=== PATIENT | male | born 1935 | race Caucasian/White ===

== ENCOUNTER 2021-12-01 10:02 | Outpatient (CLI) | payer MEDICARE, BC, SELFPAY ==
--- NOTE | 2021-12-01 10:15 | MR_ITS ---
[address] [address] Phone:?[phone] Fax:?[phone] Referring Physician Information: Jack Jeter M.D. [address] [facility] [address] Phone:?[phone] Fax:?[phone] Patient:Deniz Scales D.O.B:?1935 Sex:?Male Phone:?[phone] [facility] MRN:?[id number] Exam Date:?12/01/2021 ? EXAM: MRI EXAMINATION OF THE LEFT SHOULDER CLINICAL INFORMATION: Left shoulder pain. History of injury. History of surgery. Evaluate internal derangement. TECHNICAL INFORMATION: Coronal STIR as well as axial, sagittal and coronal PD and T2-weighted images acquired. INTERPRETATION: Bones: Status post supraspinatus tendon repair surgery. Status post AC joint resection. No evidence for an occult fracture or AVN. No other bone marrow edema pattern. Rotator Cuff: Status post repair surgery, there is complete rupture of the supraspinatus tendon insertion. Maximal tendon retraction is to the glenohumeral joint level. Moderate to marked muscle belly atrophy. Adjacent full-thickness tearing involves the anterior fibers of the infraspinatus tendon. Moderate to marked infraspinatus fatty muscle belly atrophy. The teres minor tendon is intact. There is a 1.6 cm craniocaudal segment of intrasubstance and deep surface fiber partial tearing involving the superior subscapularis tendon. Coracoacromial arch: Abnormal elevation of the humeral head in relation to the adjacent glenoid. The bony acromiohumeral interval is measuring 2 mm. There is no thickening identified of the coracoacromial ligament. Acromioclavicular joint: Status post AC joint resection. No deformity of the underlying supraspinatus tendon. Biceps tendon: Marked attenuation of the long head biceps tendon within the bicipital groove. The tendon appears disrupted intra-articular. Glenohumeral joint and labrum: There is a small glenohumeral joint effusion. Changes of synovitis identified within the joint. 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 Mild appearing chondromalacia involves the superomedial humeral head. No discrete SLAP tear. There is fraying and tearing involving the anteroinferior aspect of the labrum. No discrete paralabral cyst is identified. CONCLUSION: 1. Status post supraspinatus tendon repair surgery. There is a complete rupture of the supraspinatus tendon with full-thickness tear of the far anterior infraspinatus tendon. Maximal tendon retraction is to the glenohumeral joint level. Moderate to marked supraspinatus and infraspinatus muscle belly atrophy. 2. There is a moderate-sized segment of intrasubstance and deep surface fiber partial tearing involving the superior subscapularis tendon. 3. Elevation of the humeral head and marked narrowing of the acromiohumeral interval. Status post AC joint resection. 4. More chronic appearing disruption of the intra-articular long head biceps tendon. 5. Chondromalacia and associated full-thickness cartilage loss involves the anterosuperior periphery of the glenoid. Mild appearing chondromalacia involves the superomedial humeral head. 6. Tearing and fraying involves the anteroinferior labrum. KES Electronically signed on 12/01/2021 12:09:00 PM by Charles Johnston M.D.
== END 2021-12-01 10:03 | disposition home or self-care (01) ==
LOC: MRI 10:03
PROVIDERS: PCP Family Medicine; Visit Provider Orthopaedic Surgery
DX: M25.512 Pain in left shoulder (principal); M75.102 Unspecified rotator cuff tear or rupture of left shoulder, not specified as traumatic; M94.212 Chondromalacia, left shoulder
CPT/HCPCS: 73221

== ENCOUNTER 2021-12-31 10:00 | Outpatient (RCR) | payer MEDICARE, BC, SELFPAY ==
--- NOTE | 2021-11-11 11:56 | PT.OPE ---
[facility] PT [facility] Out[facility] Eval Start: 11/11/21 09:42 Freq: Status: Active Protocol: Document 11/11/21 09:44 KN (Rec: 11/11/21 11:50 KNJigna Desktop) E-signed By Charles Galvez, PT, ATC Physical Therapy Outpatient Evaluation Insurance Information Recert Due Date 02/11/22 Insurance Name Medicare B Insurance Information/Comments [place] [facility] M75.100 Rotator cuff tear Treating Diagnosis L shoulder pain L shoulder stiffness L shoulder immobility L shoulder weakness Referring MD Jeter Subjective Subjective Experiencing L shoulder pain when lifting away from his body to the side or to the shoulder level when going forward. Two falls reported over the past 6 weeks. Feels the L arm has lost most of its strength and requires the R arm to assist most of its actions. Dr. Jeter offered oral NSAID's, injections, ice rest and/or PT. He has chosen to try PT before either the oral or injectable considerations. He admits that his personal exercise program and total body conditioning had lessened, especially since the pandemic. He hopes to return to the local gym to begin his workout regiment again. Pain Comments Mostly with active motions, relatively little at rest. Believes he has a very high pain threshold. Date of Last Physician Visit 10/27/21 Current Work Status Retired Preferred Name Fab Precautions Therapy Limitations/Systems Review Not Limited Objective Range of Motion R/L Active Passive FLEX 165 90 SCAP 165 90 ABD 115 40 ER 90 90 IR 70 70 Strength R 5/5 L 4/5 Palpation Subacromial space tender on L shoulder. Posture Stands with mild trunk flexion , rounded shoulders and forward head. Other/Pertinent Objective L shoulder GH arthrokinematic mobility less than the R, particularly posterior and inferior. L scapulothoracic tightness Thoracic extension hypomobility Assessment Assessment/Impression Fab is well known in PT from previous PT. He had a L RCR in 2008 with excellent outcome for ROM, strength and overall mobility. Fab had previously been quite committed to a physical fitness program performed both independently and at a fitness facility. According to he and his , the pandemic changed their social patterns which seemed to coincide with his decreased exercise practice. This is likely the reason for his recent falls-decreased total body/leg conditioning and flexibility. Fab appeared today with less muscle tone and more guarding with his transfer and gait than he showed the last time I saw him . Fab's apparent RC tear(s) appear to still be creating pain with most muscle-tendon recruitment. While progressing through this acute stage I recommend skilled PT to address the L shoulder pain, GH joint hypomobility and developing primary shoulder muscle strength/recruitment. Primary Functional Limitations Dressing Reaching into cabinets Lifting items from garden- floor Aerobic stamina Plan of Care Rehabilitation Potential Fair Physical Therapy Goals 1.[place] with his home ex program for L shoulder strength and AAROM. 2.Decrease L shld pain with lifting while donning a shirt to 3/10 or less. 3.Facilitate improved GH and thoracic vertebral extension to improve scapulothoracic kinetics and lessen scapular substitution when lifting the arm to 90 degrees flexion for hair washing. 4.To walk x 30 min.s x 4 days per week on even and uneven surfaces without loss of balance. Coordination/Communication With Referral Source Treatment Plan/Direct Interventions Joint Mobilization,Manual Therapy,Self-Care/Home Management,Therapeutic Activities,Therapeutic Exercises Frequency/Duration 1-2x per week 6-12 weeks Patient Will Be Discharged From Therapy Skills Plateau,Independent w/ HEP,Independently Progressing Evaluation Billing Untimed Code Treatment Minutes 30 PT Eval No Charge No Complexity Low Certification Information Initial Certification Date 11/11/21 Ending Certification Date 02/11/22 Physician Comment/Change Comment or Changes Physician NPI Number #
== END 2022-10-08 23:59 | disposition home or self-care (01) ==
PROVIDERS: PCP Family Medicine; Visit Provider Orthopaedic Surgery
DX: M75.100 Unspecified rotator cuff tear or rupture of unspecified shoulder, not specified as traumatic (principal); M25.512 Pain in left shoulder; M25.612 Stiffness of left shoulder, not elsewhere classified; Z74.09 Other reduced mobility; Z51.89 Encounter for other specified aftercare
CPT/HCPCS: 97110; 97140; 97161; 97530

== ENCOUNTER 2022-05-12 09:00 | Outpatient (RCR) | payer MEDICARE, BC, SELFPAY | END 2022-05-12 11:09 | disposition home or self-care (01) | PROVIDERS: PCP Family Medicine; Visit Provider Family Medicine | DX: M19.031 Primary osteoarthritis, right wrist (principal); Z51.89 Encounter for other specified aftercare | CPT/HCPCS: 97035; 97110; 97140; 97165; 97535; X5282 ==

== ENCOUNTER 2022-11-27 19:46 | Emergency (ER) | payer MEDICARE, BC, SELFPAY ==
[2022-11-27 19:49] VITALS: BP 173/81; RESP 16; TEMP 36.7; O2SAT 96; BMI 30.1
--- NOTE | 2022-11-27 19:55 | CRLHL7_ITS ---
For Patients: As a result of the Century Cures Act, medical imaging exams and procedure reports are released immediately into your electronic medical record. You may view this report before your referring provider. If you have questions, please contact your health care provider. INDICATION: Leg pain and swelling. TECHNIQUE: Ultrasound venous duplex lower right extremity. Compression venous exam was performed using muhammad-scale, color Doppler, and spectral Doppler analysis. COMPARISON: None. FINDINGS: Deep veins: Sonographic imaging demonstrates the right common femoral, deep femoral, superficial femoral, popliteal, posterior tibial and the contralateral right common femoral veins to be fully compressible with normal color Doppler blood flow. Superficial veins: Greater saphenous vein is fully compressible. No popliteal cyst. IMPRESSION: Normal right lower extremity venous ultrasound, no sign of deep venous thrombosis. Dictated by Jj Baca MD @ 11/27/2022 10:05:51 PM (Electronically Signed)
--- NOTE | 2022-11-27 20:07 | ED.GENADULT ---
HPI - General Adult General Time Seen by Provider: 20:08 Date Seen: 11/27/22 Chief complaint: Extremity Pain/Injury, Lower Stated complaint: Possible blood clot R leg Time Seen by Provider: 11/27/22 19:56 Source: patient, RN notes reviewed and old records reviewed Mode of arrival: ambulatory Limitations: no limitations History of Present Illness HPI narrative: 87 y/o male who presents today with right leg swelling. Noted pain starting about a week ago, no injury. Increased swelling today. No chest pain or SOB. No foot pain. Painful with walking but improved after ibuprofen at home. Related Data Home Medications Medication Instructions Recorded Confirmed Lactobacillus acidophilus 10 10,000 mmu cells PO ONCE 10/27/21 11/27/22 billion cell capsule antiarthritic combination no.2 900 mg PO 10/27/21 11/27/22 mg tablet (glucosamine-chondroitin) calcium carbonate 600 mg calcium 600 mg PO QDAY 10/27/21 11/27/22 (1,500 mg) tablet (Calcium) cholecalciferol (vitamin D3) 25 1,000 unit PO QDAY 10/27/21 11/27/22 mcg (1,000 unit) capsule methimazole 5 mg tablet 2.5 mg PO DAILY 10/27/21 11/27/22 multivitamin (Multiple Vitamins 1 tab PO QDAY 10/27/21 11/27/22 tablet) tamsulosin 0.4 mg capsule 0.4 mg PO .Bedtime 10/27/21 11/27/22 alfalfa 250 mg tablet mg PO 12/17/21 11/27/22 vit C 250 mg-vit E 90 mg-zinc 40 1 tab PO QDAY 12/17/21 11/27/22 mg-copper 1 np-xoices-aceegq capsule (PreserVision AREDS-2) Allergies Allergy/AdvReac Type Severity Reaction Status Date / Time lisinopril Allergy Unknown Cough Verified 11/27/22 19:53 Sulfa drugs Allergy Mild cannot Uncoded 11/27/22 18:48 remember FISH Allergy Unknown Uncoded 11/27/22 18:48 Review of Systems Status of ROS: Reports: 10 or more systems reviewed and unremarkable except as noted in History and below [facility] Medical History (Updated 11/27/22 @ 21:13 by Jarred Newman MD) History of bladder stone ?Z87.448 - Personal history of other diseases of urinary system (ICD-10) Surgical History History of arthroscopy of left shoulder (12/25/08) History of arthroscopy of right shoulder History of hernia repair Family History (Updated 10/27/21 @ 08:54 by Ladan Martinez ~ [facility], [facility]) Mother Pancreatic cancer Social History (Reviewed 12/17/21 @ 09:29 by Ladan Martinez ~ [facility], [facility]) Smoking Status: Never smoker Do you use any of these nicotine containing products: None Second hand tobacco smoke exposure: No How often do you have a drink containing alcohol: 4 or more times a week AUDIT-C Alcohol total score: 4 Non-prescribed substance use: denies use Are you now , , , , never or living with a partner: Social isolation score (0-1 are the most socially isolated patients): 1 Exam Const: Vital Signs, click to edit/add: Vital Signs - 24 hr 11/27/22 19:49 11/27/22 21:35 Temperature 98.1 F Respiratory Rate 16 Blood Pressure [Ri ght Upper Arm] 173/81 H 168/86 H Pulse Oximetry 96 Oxygen Delivery Me thod Room Air Common normals: no apparent distress General appearance: cooperative, comfortable, well kempt and well developed HENMT: Common normals: normocephalic Head and scalp: normocephalic Eye: Common normals: PERRL, EOMs intact bilaterally and conjunctivae normal Conjunctiva: conjunctiva(e) normal Pupil: PERRL Neck & C-Spine: Common normals: full ROM and supple Chest: Common normals: inspection of chest normal Resp: Common normals: normal respiratory effort Back & Pelvis: Common normals: thoracic and lumbar spine normal to inspection Extremity: Other: Pitting edema right lower leg to knee. No knee or ankle effusion, no pain with passive movement of knee or ankle Psych: Appearance: well kempt Course Course ED Course: Patient seen and examined, prior records reviewed. Patient presents with swelling of the right lower leg. Pitting edema of the right leg, prior ankle ORIF on that side. Lymphedema vs DVT, no redness or warmth to suggest cellulitis. No chest pain or dyspnea to suggest PE. Labs and US ordered. Reevaluation(s) Time of Reevaluation #1: 21:09 Reevaluation #1: Labs independently interpreted by me reassuring with normal BMP, reassuring electrolytes and renal function, normal CBC. RLE US reported negative by voice and data technician, radiology interpretation pending. Anticipate discharge with PCP follow-up, elevation, compression. Time of Reevaluation #2: 22:11 Reevaluation #2: Radiology interpretation ultrasound negative, patient is stable for discharge Vital Signs Vital signs: Initial Vital Signs Temperature 98.1 F 11/27/22 19:49 Temperature Source Temporal Artery Scan 11/27/22 19:49 Respiratory Rate 16 11/27/22 19:49 Blood Pressure 173/81 H 11/27/22 19:49 Blood Pressure Mean 111 H 11/27/22 19:49 Blood Pressure Position Sitting 11/27/22 19:49 Pulse Oximetry 96 11/27/22 19:49 Oxygen Delivery Method Room Air 11/27/22 19:49 Vital Signs Temperature 98.1 F 11/27/22 19:49 Respiratory Rate 16 11/27/22 19:49 Blood Pressure 173/81 H 11/27/22 19:49 Pulse Oximetry 96 11/27/22 19:49 Oxygen Delivery Method Room Air 11/27/22 19:49 Temperature 98.1 F 11/27/22 19:49 Respiratory Rate 16 11/27/22 19:49 Blood Pressure 168/86 H 11/27/22 21:35 Pulse Oximetry 96 11/27/22 19:49 Oxygen Delivery Method Room Air 11/27/22 19:49 Medical Decision Making Medical Records Medical records reviewed: Yes I reviewed the patient's medical records Lab Data Lab results reviewed: Yes I reviewed the patient's lab results Labs: Lab Results 11/27/22 Range/Units 20:28 WBC 5.24 (4.50-11.00) K/uL RBC 4.20 L (4.30-5.90) m/uL Hgb 13.1 L (13.5-17.5) gm/dL Hct 40.9 (37.0-53.0) % MCV 97 (80-100) fL MCH 31 (26-34) pg MCHC 32 (32-36) gm/dL RDW Coeff of Heather 13.2 (11.5-15.5) % Plt Count 182 (140-440) K/uL Neut % (Auto) 52.8 (42.0-72.0) % Lymph % (Auto) 27.7 (20-44) % [place] % (Auto) 16.6 H (0.0-11.0) % Eos % (Auto) 1.9 (0.0-7.0) % Baso % (Auto) 1.0 (0.0-3.0) % Neut # (Auto) 2.77 (1.7-7.0) K/uL Lymph # (Auto) 1.45 (0.90-2.90) K/uL [place] # (Auto) 0.90 (0.00-0.90) K/UL Eos # (Auto) 0.10 (0.00-0.50) K/uL Baso # (Auto) 0.05 (0.00-0.30) K/uL Abs Immat Gran (auto) 0.00 (0.00-0.30) K/uL Imm/Tot Granulo (auto) 0.0 % INR 1.01 (0.91-1.10) Sodium 141 (135-149) mmol/L Potassium 4.0 (3.6-5.1) mmol/L Chloride 107 (96-114) mmol/L Carbon Dioxide 27 (20-32) mmol/L Anion Gap 7 (7-15) mEq/L BUN 19 (7-30) mg/dL Creatinine 1.1 (0.5-1.5) mg/dL Estimated Creat Clear 49.77 Estimated GFR 65 ml/min Glucose 102 (60-115) mg/dL Calcium 9.7 (8.4-10.6) mg/dL Discharge Plan Discharge Clinical Impression: Edema of right lower leg Patient Disposition: Home, Self-Care Condition: Stable Instructions: Leg Edema (ED) Additional Instructions: Elevate the leg as able when sitting or laying down. MICHELLE wrap for comfort. Follow-up with your primary care provider next week. Activity Level: Activity as Tolerated Discharge Diet: Regular Prescriptions: No Action multivitamin [Multiple Vitamins] Tablet 1 tab PO QDAY cholecalciferol (vitamin D3) 25 mcg (1,000 unit) capsule 1,000 unit PO QDAY calcium carbonate [Calcium 600] 600 mg calcium (1,500 mg) tablet 600 mg PO QDAY Lactobacillus acidophilus 10 billion cell capsule 10,000 mmu cells PO ONCE glucosamine-chondroitin 900 mg tablet PO methimazole 5 mg tablet 2.5 mg PO DAILY tamsulosin 0.4 mg capsule 0.4 mg PO .Bedtime PreserVision AREDS-2 250-90-40-1 mg capsule 1 tab PO QDAY alfalfa 250 mg tablet PO Follow Up/Referrals: Dave Romero MD [Primary Care Provider] - Stand Alone Forms: [email or web address] Info Instructions
[2022-11-27 20:34] LABS: Basophils Absolute Auto 0.05 K/uL (0.00-0.30); Eosinophils Percent Auto 1.9 % (0.0-7.0); Hematocrit 40.9 % (37.0-53.0); Hemoglobin* 13.1 gm/dL (13.5-17.5); Lymphocytes Absolute Auto 1.45 K/uL (0.90-2.90); Lymphocytes Percent Auto 27.7 % (20-44); Mean Corpuscular HGB Conc 32 gm/dL (32-36); Mean Corpuscular Hemoglobin 31 pg (26-34); Mean Corpuscular Volume 97 fL (80-100); Monocytes Percent Auto 16.6 % (0.0-11.0); Neutrophils Absolute Auto 2.77 K/uL (1.7-7.0); Neutrophils Percent Auto 52.8 % (42.0-72.0); Platelet Count* 182 K/uL (140-440); RDW Coefficient of Variation % 13.2 % (11.5-15.5); White Blood Count* 5.24 K/uL (4.50-11.00)
[2022-11-27 20:35] LABS: Slide Review Reflex No
[2022-11-27 20:46] LABS: Chloride* 107 mmol/L (96-114); Sodium* 141 mmol/L (135-149)
[2022-11-27 20:48] LABS: INR 1.01 (0.91-1.10); Prothrombin Time 13.9 Seconds
[2022-11-27 20:49] LABS: Anion Gap 7 mEq/L (7-15); Carbon Dioxide* 27 mmol/L (20-32); Creatinine* 1.1 mg/dL (0.5-1.5); Est. Creatinine Clearance* 49.77; Estimated Glomerular Filt Rate 65 ml/min
[2022-11-27 20:50] LABS: Blood Urea Nitrogen* 19 mg/dL (7-30); Calcium* 9.7 mg/dL (8.4-10.6); Glucose* 102 mg/dL (60-115)
[2022-11-27 21:35] VITALS: BP 168/86
== END 2022-11-27 22:31 | disposition home or self-care (01) ==
PROVIDERS: Emergency Provider Family Medicine; PCP Family Medicine
DX: R60.9 Edema, unspecified (principal)
CPT/HCPCS: 36415; 80048; 85025; 85610; 93971; 99283; 99284

== ENCOUNTER 2023-03-24 13:53 | Observation (INO) | payer MEDICARE, BC, SELFPAY ==
[2023-03-24] VITALS (29 sets, daily range): BP systolic 126–192; BP diastolic 67–92; PULSE 58–72; RESP 12–20; TEMP 36.3–36.8; O2SAT 91–98; BMI 29.1; BMI 29.2
--- NOTE | 2023-03-24 14:12 | CRLHL7_ITS ---
For Patients: As a result of the Century Cures Act, medical imaging exams and procedure reports are released immediately into your electronic medical record. You may view this report before your referring provider. If you have questions, please contact your health care provider. INDICATION: Acute stroke, right arm weakness, right facial loss of sensation. TECHNIQUE: CT head without contrast. FINDINGS: There is no intracranial hemorrhage. The muhammad white matter differentiation is grossly maintained. There are nonspecific white matter hypodensities commonly seen with small vessel disease. There is evidence of a lacunar infarct in the left thalamus. The ventricles and cisterns are clear. IMPRESSION: 1. Left thalamic lacunar infarct, age-indeterminate. 2. Nonspecific white matter hypodensities commonly seen with small vessel disease. Please note that all CT scans at this facility use dose modulation, iterative reconstruction, and/or weight-based dosing when appropriate to reduce radiation dose to as low as reasonably achievable. Dictated by Marcus Onofre MD @ 03/24/2023 2:36:56 PM (Electronically Signed)
--- NOTE | 2023-03-24 14:12 | CRLHL7_ITS ---
For Patients: As a result of the Century Cures Act, medical imaging exams and procedure reports are released immediately into your electronic medical record. You may view this report before your referring provider. If you have questions, please contact your health care provider. INDICATION: Acute stroke, right arm weakness, right facial loss of sensation. TECHNIQUE: CTA head with contrast bolus tracking, 3D angiographic rendering using maximum intensity projection (MIP) and images permanently archived. FINDINGS: There is normal opacification of the intracranial vasculature. There is no large vessel occlusion. No aneurysm is identified. IMPRESSION: Unremarkable head CTA. No large vessel occlusion. Please note that all CT scans at this facility use dose modulation, iterative reconstruction, and/or weight-based dosing when appropriate to reduce radiation dose to as low as reasonably achievable. Dictated by Marcus Onofre MD @ 03/24/2023 2:39:18 PM (Electronically Signed)
--- NOTE | 2023-03-24 14:12 | CRLHL7_ITS ---
For Patients: As a result of the Century Cures Act, medical imaging exams and procedure reports are released immediately into your electronic medical record. You may view this report before your referring provider. If you have questions, please contact your health care provider. INDICATION: Acute stroke, right arm weakness, right facial loss of sensation. TECHNIQUE: CTA neck with contrast bolus tracking, 3D angiographic rendering using maximum intensity projection (MIP) and images permanently archived. FINDINGS: There is no significant carotid artery stenosis or dissection. There is no significant vertebral artery stenosis or dissection. There are multiple small thyroid nodules. A nearly 6 cm mass-like extension from the inferior aspect of the right thyroid extends into the mediastinum. The cervical spine is in normal alignment. Degenerative changes are noted in the cervical spine. IMPRESSION: 1. No significant carotid or vertebral artery stenosis or dissection. 2. 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 Discussed with Dr. Quan at 2:45 p.m. on 03/24/23. Please note that all CT scans at this facility use dose modulation, iterative reconstruction, and/or weight-based dosing when appropriate to reduce radiation dose to as low as reasonably achievable. Dictated by Marcus Onofre MD @ 03/24/2023 2:44:15 PM (Electronically Signed)
--- NOTE | 2023-03-24 14:20 | ED_ITS ---
HPI - General Adult General Chief complaint: Neuro Symptoms/Altered Deficit Stated complaint: stroke like symptoms, numb on the right side Time Seen by Provider: 03/24/23 14:04 History of Present Illness HPI narrative: stroke like symptoms, numb on the right side 87-year-old man presenting to the emergency department approximately 40 minutes after onset of episode of numbness and weakness. Was sitting eating and suddenly felt numbness over the right side of his face unusual sensation is ears well and weakness in his right hand/lower arm. Also slurring some speech. Symptoms have apparently now resolved lasting possibly 20 minutes though slurring of speech she says remains. Does not have headache. No cough or cold symptoms recently. No fever. No sense of irregular heartbeat. Talking with spouse, apparently no cardiovascular problems known no history of CVA. She does say that he had had a rather intense workout earlier in the morning. And that he has been struggling with good deal of social stressors with family lately; it has been a tough year. Has been struggling with balance and lower extremities going to pot. Was being worked out by physical therapy this morning prior to this event. Is interested in getting better to go skiing. History of being quite an avid skier. Has been struggling with arthritis particularly in his right knee. Been taking regular ibuprofen. No abdominal pain or dyspepsia or melena noted. Related Data Home Medications Medication Instructions Recorded Confirmed Lactobacillus acidophilus 10 10,000 mmu cells PO ONCE 10/27/21 11/27/22 billion cell capsule antiarthritic combination no.2 900 mg PO 10/27/21 11/27/22 mg tablet (glucosamine-chondroitin) calcium carbonate 600 mg calcium 600 mg PO QDAY 10/27/21 11/27/22 (1,500 mg) tablet (Calcium) cholecalciferol (vitamin D3) 25 1,000 unit PO QDAY 10/27/21 11/27/22 mcg (1,000 unit) capsule methimazole 5 mg tablet 2.5 mg PO DAILY 10/27/21 11/27/22 multivitamin (Multiple Vitamins 1 tab PO QDAY 10/27/21 11/27/22 tablet) tamsulosin 0.4 mg capsule 0.4 mg PO .Bedtime 10/27/21 11/27/22 alfalfa 250 mg tablet mg PO 12/17/21 11/27/22 vit C 250 mg-vit E 90 mg-zinc 40 1 tab PO QDAY 12/17/21 11/27/22 mg-copper 1 [id number] capsule (PreserVision AREDS-2) chlorthalidone 25 mg tablet mg PO 03/24/23 sertraline 50 mg tablet mg PO 03/24/23 sildenafil 100 mg tablet mg 03/24/23 simvastatin 20 mg tablet 20 mg PO QPM 03/24/23 03/24/23 Allergies Allergy/AdvReac Type Severity Reaction Status Date / Time lisinopril Allergy Unknown Cough Verified 03/24/23 14:02 Sulfa drugs Allergy Mild cannot Uncoded 11/27/22 18:48 remember FISH Allergy Unknown Uncoded 11/27/22 18:48 Review of Systems Status of ROS: Reports: 6 or more systems reviewed and unremarkable except as noted in History and below [facility] Medical History (Updated 03/24/23 @ 19:29 by Jose Powell MD) Hyperthyroidism ?E05.90 - Thyrotoxicosis, unspecified without thyrotoxic crisis or storm (ICD-10) Rupture of left biceps tendon ?S46.212A - Strain of muscle, fascia and tendon of other parts of biceps, left arm, initial encounter (ICD-10) Osteoarthritis of left shoulder ?M19.012 - Primary osteoarthritis, left shoulder (ICD-10) Rotator cuff tear, left ?M75.102 - Unspecified rotator cuff tear or rupture of left shoulder, not specified as traumatic (ICD-10) Urinary retention due to benign prostatic hyperplasia ?N40.1 - Benign prostatic hyperplasia with lower urinary tract symptoms (ICD- 10) ?R33.8 - Other retention of urine (ICD-10) Sepsis ?A41.9 - Sepsis, unspecified organism (ICD-10) Escherichia coli urinary tract infection ?N39.0 - Urinary tract infection, site not specified (ICD-10) ?B96.20 - Unspecified Escherichia coli [E. coli] as the cause of diseases classified elsewhere (ICD-10) Encounter for counseling regarding advance directives (10/19/16) ?Z71.89 - Other specified counseling (ICD-10) Calculus of urinary bladder ?N21.0 - Calculus in bladder (ICD-10) History of bladder stone ?Z87.448 - Personal history of other diseases of urinary system (ICD-10) Surgical History History of arthroscopy of right shoulder ?Z98.890 - Other specified postprocedural states (ICD-10) History of hernia repair ?Z98.890 - Other specified postprocedural states (ICD-10) ?Z87.19 - Personal history of other diseases of the digestive system (ICD-10) History of arthroscopy of left shoulder (12/25/08) ?Z98.890 - Other specified postprocedural states (ICD-10) Family History Mother Pancreatic cancer Social History What is your current living situation?: I presently have a place to live Problems where you live: no known problems Problems where you live details: None In the past 12 months, utilities in danger of being shut off: no In past 12 months, lack of transportation kept you from medical appts, meetings, work, or getting things needed for daily living: no In the past 12 mos, have been you worried that your food would run out before you had money to buy more?: never true In the past 12 mos, the food you bought just didn't last and you didn't have money to buy more?: never true Highest level of school completed/degree received: Master's degree Smoking Status: Never smoker Do you use any of these nicotine containing products: None Second hand tobacco smoke exposure: No How often do you have a drink containing alcohol: 4 or more times a week Alcohol type: beer and wine How many standard drinks containing alcohol do you have on a typical day: 1 or 2 How often do you have six or more drinks on one occasion: Never AUDIT-C Alcohol total score: 4 Non-prescribed substance use: denies use Caffeine: Yes (1 cup of tea or 1 pop a day) Are you now , , , , never or living with a partner: Social isolation score (0-1 are the most socially isolated patients): 1 How often does anyone, including family, friends and others, physically hurt you : never How often does anyone, including family, friends and others, insult or talk down to you: never How often does anyone, including family, friends and others, threaten you with harm: never How often does anyone, including family, friends and others, scream or curse at you: never service: No Exam Narrative: Exam Narrative: Pleasant. Fully alert. GCS of 15. Head is atraumatic. Cranial nerves 2-12 intact. He is breathing easily. Moving all extremities without difficulty. Lower extremities are without edema. Well-perfused. Head looks to be atraumatic. Without apparent loss of sensation over the upper extremities. He has no focal weakness. He is subtly slurring his speech. Oropharynx is moist. Scores maybe a 1 on the NIH stroke scale for the subtle slurring. Heart in regular rate and rhythm with some ectopic beats. Distant. Lungs are clear. Const: Vital Signs, click to edit/add: Vital Signs - 24 hr 03/24/23 14:07 03/24/23 14:12 03/24/23 14:22 Temperature 97.3 F L Pulse Rate 72 Pulse Rate [Pulse Oximeter] 67 Respiratory Rate 16 Blood Pressure 142/69 H Blood Pressure [Ri ght Upper Arm] 127/67 Pulse Oximetry 96 94 Oxygen Delivery Me thod Room Air 03/24/23 14:26 03/24/23 14:27 03/24/23 14:31 Temperature 98.2 F Pulse Rate 66 Pulse Rate [Pulse Oximeter] 67 Respiratory Rate 16 Blood Pressure 133/69 Blood Pressure [Ri ght Upper Arm] Pulse Oximetry 96 96 93 Oxygen Delivery Me thod Room Air 03/24/23 14:32 03/24/23 14:40 03/24/23 14:41 Temperature Pulse Rate 66 67 65 Pulse Rate [Pulse Oximeter] Respiratory Rate Blood Pressure 126/70 Blood Pressure [Ri ght Upper Arm] Pulse Oximetry 92 91 95 Oxygen Delivery Me thod 03/24/23 14:42 03/24/23 14:50 03/24/23 14:51 Temperature 98.3 F Pulse Rate 70 63 63 Pulse Rate [Pulse Oximeter] Respiratory Rate 12 Blood Pressure 126/70 130/72 Blood Pressure [Ri ght Upper Arm] Pulse Oximetry 97 91 91 Oxygen Delivery Me thod Room Air 03/24/23 14:52 03/24/23 14:57 03/24/23 15:21 Temperature 98.3 F Pulse Rate 64 63 61 Pulse Rate [Pulse Oximeter] Respiratory Rate 12 Blood Pressure 130/72 160/85 H Blood Pressure [Ri ght Upper Arm] Pulse Oximetry 93 94 92 Oxygen Delivery Me thod Room Air 03/24/23 15:22 03/24/23 15:30 03/24/23 15:31 Temperature Pulse Rate 61 63 60 Pulse Rate [Pulse Oximeter] Respiratory Rate Blood Pressure 152/83 H Blood Pressure [Ri ght Upper Arm] Pulse Oximetry 94 95 96 Oxygen Delivery Wi thod 03/24/23 15:47 03/24/23 15:50 03/24/23 15:54 Temperature Pulse Rate 61 63 60 Pulse Rate [Pulse Oximeter] Respiratory Rate Blood Pressure Blood Pressure [Ri ght Upper Arm] Pulse Oximetry 95 93 93 Oxygen Delivery Wi thod 03/24/23 15:57 03/24/23 16:00 03/24/23 16:10 Temperature 98.3 F Pulse Rate 61 60 59 L Pulse Rate [Pulse Oximeter] Respiratory Rate 12 Blood Pressure 152/83 H Blood Pressure [Ri ght Upper Arm] Pulse Oximetry 94 94 98 Oxygen Delivery Wi thod 03/24/23 16:50 Temperature Pulse Rate Pulse Rate [Pulse Oximeter] Respiratory Rate Blood Pressure Blood Pressure [Ri ght Upper Arm] Pulse Oximetry 95 [facility] Documenting provider has reviewed patient's vital signs: yes Course Vital Signs Vital signs: Initial Vital Signs Temperature 97.3 F L 03/24/23 14:07 Temperature Source Temporal Artery Scan 03/24/23 14:07 Pulse Rate 67 03/24/23 14:07 Pulse Rhythm Regular 03/24/23 14:07 Pulse Strength 3+ Normal 03/24/23 14:07 Respiratory Rate 16 03/24/23 14:07 Blood Pressure 127/67 03/24/23 14:07 Blood Pressure Mean 87 03/24/23 14:07 Blood Pressure Position Sitting 03/24/23 14:07 Pulse Oximetry 96 03/24/23 14:07 Oxygen Delivery Method Room Air 03/24/23 14:07 Vital Signs Temperature 97.3 F L 03/24/23 14:07 Pulse Rate 67 03/24/23 14:07 Respiratory Rate 16 03/24/23 14:07 Blood Pressure 127/67 03/24/23 14:07 Pulse Oximetry 96 03/24/23 14:07 Oxygen Delivery Method Room Air 03/24/23 14:07 Temperature 97.9 F 03/24/23 19:50 Pulse Rate 65 03/24/23 19:50 Respiratory Rate 20 03/24/23 19:50 Blood Pressure 165/80 H 03/24/23 19:50 Pulse Oximetry 95 03/24/23 19:50 Oxygen Delivery Method Room Air 03/24/23 19:50 Medications Administered Medications: Generic Name Dose Route Start Last Admin Trade Name Elissa PRN Reason Stop Dose Admin Enoxaparin Sodium 40 mg 03/24/23 21:00 03/24/23 20:36 Enoxaparin 40 Mg/0.4 Ml Inj SUBCUT 40 mg HS YANG Administration Sodium Chloride 1,000 mls @ 75 mls/hr 03/24/23 17:25 03/24/23 18:43 0.9 % Sodium Chloride 1000 Ml IV 03/25/23 06:44 75 mls/hr .[id number] YANG Administration Simvastatin 20 mg 03/24/23 21:00 03/24/23 20:36 Simvastatin 20 Mg Tablet PO 20 mg HS YANG Administration Sodium Chloride 5 ml 03/24/23 21:00 03/24/23 20:36 Sodium Chloride 0.9 % (Flush) 10 Ml Syringe IVF Not Given BID YANG Tamsulosin HCl 0.4 mg 03/24/23 21:00 03/24/23 20:36 Tamsulosin Hcl 0.4 Mg Capsule PO 0.4 mg HS YANG Administration Discontinued Medications Generic Name Dose Route Start Last Admin Trade Name Elissa PRN Reason Stop Dose Admin Aspirin 324 mg 03/24/23 15:30 03/24/23 15:19 Aspirin 81 Mg Tab.Chew PO 03/24/23 15:31 324 mg ONCE ONE Administration Clopidogrel Bisulfate 300 mg 03/24/23 17:25 03/24/23 18:43 Clopidogrel 75 Mg Tablet PO 03/24/23 17:26 300 mg ONCE ONE Administration Medical Decision Making MDM Narrative Medical decision making narrative: Will proceed in timely manner to evaluation of stroke symptoms. Will be going to imaging. Labs are pending. I would doubt intervention given scoring at this point. Will monitor for worsening. TIA? Episode of anxiety? By my read I do not see evidence of acute abnormality on noncontrast head CT. Discussed with Stroke Neurology. They review the non con head CT noting old thalamic stroke. Probably TIA as explanation for symptoms. Proceed with vascular study either MRA of the neck or with CTA as ordered. Anticipating MRI of the brain. I called to Radiology and CT a of head and neck as already been accomplished. Will try to find time for MRI of the head. Anticipating admission with aspirin plus or minus Plavix. Will clarify status. CT head radiology over-read IMPRESSION: 1. Left thalamic lacunar infarct, age-indeterminate. 2. Nonspecific white matter hypodensities commonly seen with small vessel disease. On reassessment approximately 50 minutes after arrival, is fully symptom free. Does not take daily aspirin. Will order full strength aspirin. I have discussed with hospitalist for admission. Anticipating MRI of the head yet this afternoon. 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 I discussed this with Mr. Scales; apparently this is not a new finding and has been treated for hyperthyroid 40 years. Radiology over-read of angiography of head and neck is unremarkable other than as noted above. Lab Data Lab results reviewed: Yes I reviewed the patient's lab results Labs: Lab Results 03/24/23 Range/Units 14:05 WBC 6.20 (4.50-11.00) K/uL RBC 4.24 L (4.30-5.90) m/uL Hgb 13.3 L (13.5-17.5) gm/dL Hct 41.3 (37.0-53.0) % MCV 97 (80-100) fL MCH 31 (26-34) pg MCHC 32 (32-36) gm/dL RDW Coeff of Heather 12.8 (11.5-15.5) % Plt Count 180 (140-440) K/uL Neut % (Auto) 62.4 (42.0-72.0) % Lymph % (Auto) 25.3 (20-44) % [place] % (Auto) 10.3 (0.0-11.0) % Eos % (Auto) 1.5 (0.0-7.0) % Baso % (Auto) 0.5 (0.0-3.0) % Neut # (Auto) 3.87 (1.7-7.0) K/uL Lymph # (Auto) 1.57 (0.90-2.90) K/uL [place] # (Auto) 0.60 (0.00-0.90) K/UL Eos # (Auto) 0.09 (0.00-0.50) K/uL Baso # (Auto) 0.03 (0.00-0.30) K/uL Abs Immat Gran (auto) 0.00 (0.00-0.30) K/uL Imm/Tot Granulo (auto) 0.0 % INR 1.04 (0.91-1.10) APTT 30 (23-33) Seconds Sodium 137 (135-149) mmol/L Potassium 3.6 (3.6-5.1) mmol/L Chloride 102 (96-114) mmol/L Carbon Dioxide 26 (20-32) mmol/L Anion Gap 9 (7-15) mEq/L BUN 25 (7-30) mg/dL Creatinine 1.3 (0.5-1.5) mg/dL Estimated Creat Clear 42.12 Estimated GFR 54 ml/min Glucose 121 H (60-115) mg/dL Calcium 9.6 (8.4-10.6) mg/dL ECG Data Attestation: I personally reviewed and interpreted this ECG as follows: (Sinus rhythm. Rate of 73. PACs. No acute ischemic changes) Critical Care Time Critical Care Time Critical Care Time: Yes Attestation: The patient required my highest level preparedness to intervene emergently and I personally spent this critical care time directly and personally managing the patient. This critical care time included: Obtaining a history; Examining the patient; Pulse oximetry; Ordering and reviewing of studies; Arranging urgent treatment with development of a management plan; Evaluation of patients response to treatment; Frequent reassessment discussions with other providers. This critical care time was performed to assess and manage the high probability of imminent life-threatening deterioration that could result in multiorgan failure. It was exclusive of separate billable procedures and treating other patients and teaching time. Total Critical Care Time in Minutes: 45 Discharge Plan Discharge Clinical Impression: Thalamic stroke, Brain TIA Patient Disposition: Admitted As Observation Condition: Improved
[2023-03-24 14:34] LABS: Basophils Absolute Auto 0.03 K/uL (0.00-0.30); Basophils Percent Auto 0.5 % (0.0-3.0); Eosinophils Absolute Auto 0.09 K/uL (0.00-0.50); Eosinophils Percent Auto 1.5 % (0.0-7.0); Hematocrit 41.3 % (37.0-53.0); Hemoglobin* 13.3 gm/dL (13.5-17.5); Lymphocytes Absolute Auto 1.57 K/uL (0.90-2.90); Lymphocytes Percent Auto 25.3 % (20-44); Mean Corpuscular HGB Conc 32 gm/dL (32-36); Mean Corpuscular Hemoglobin 31 pg (26-34); Mean Corpuscular Volume 97 fL (80-100); Monocytes Percent Auto 10.3 % (0.0-11.0); Neutrophils Absolute Auto 3.87 K/uL (1.7-7.0); Neutrophils Percent Auto 62.4 % (42.0-72.0); Platelet Count* 180 K/uL (140-440); RDW Coefficient of Variation % 12.8 % (11.5-15.5); Red Blood Count 4.24 m/uL (4.30-5.90)
[2023-03-24 14:37] LABS: Chloride* 102 mmol/L (96-114); Potassium* 3.6 mmol/L (3.6-5.1); Sodium* 137 mmol/L (135-149)
[2023-03-24 14:38] LABS: Slide Review Reflex No
[2023-03-24 14:40] LABS: Anion Gap 9 mEq/L (7-15); Blood Urea Nitrogen* 25 mg/dL (7-30); Carbon Dioxide* 26 mmol/L (20-32); Creatinine* 1.3 mg/dL (0.5-1.5); Est. Creatinine Clearance* 42.12; Estimated Glomerular Filt Rate 54 ml/min
[2023-03-24 14:41] LABS: Calcium* 9.6 mg/dL (8.4-10.6); Glucose* 121 mg/dL (60-115)
[2023-03-24 14:42] LABS: INR 1.04 (0.91-1.10); Prothrombin Time 14.3 Seconds
[2023-03-24 14:43] LABS: Partial Thromboplastin Time* 30 Seconds (23-33)
--- NOTE | 2023-03-24 15:06 | CRLHL7_ITS ---
For Patients: As a result of the Cures Act, medical imaging exams and procedure reports are released immediately into your electronic medical record. You may view this report before your referring provider. If you have questions, please contact your health care provider. Indication: Recent TIA, history of thalamic stroke Technique: Multiplanar, multisequence MRI of the brain obtained without contrast. Comparison: CT head 03/24/2023 Findings: Mild generalized cerebral volume loss. Mild chronic microangiopathy white-matter changes. Chronic left thalamic lacunar infarct. No acute/subacute ischemic, intracranial hemorrhage, or abnormal extra-axial fluid collection. No midline shift, hydrocephalus, or herniation. Midline structures are unremarkable. Major expected intracranial flow voids are visualized. Mild scattered paranasal sinus mucosal thickening. No significant mastoid effusion. Unremarkable orbits. Impression: 1. No evidence of acute intracranial abnormality 2. Mild generalized cerebral volume loss, mild chronic microangiopathy changes, and chronic left thalamic lacunar infarct. Dictated by Adali Ybarra MD @ 03/24/2023 5:40:48 PM (Electronically Signed)
[2023-03-24] MEDS: ASPIRIN 81 MG TAB.CHEW 324 MG PO (15:19)
[2023-03-24] MEDS: 0.9 % SODIUM CHLORIDE 1000 ml 1,000 ML 75 ML IV (18:43)
[2023-03-24] MEDS: CLOPIDOGREL 75 MG TABLET 300 MG PO (18:43)
--- NOTE | 2023-03-24 19:10 | P.IMHP_ITS ---
Hospitalist- H&P: HPI History of Present Illness Date Seen: 03/24/23 Chief complaint: stroke like symptoms, numb on the right side Narrative: Minh Scales is a 87 year old man presented this afternoon with the 30-45 minute episode of right arm and face numbness and clumsiness associated with dysarthria. Denies other focal motor neurologic deficits. Denies visual changes. Denies change in language function. Denies headache or loss of consciousness. No recent trauma, travel, or injury. Denies recent infectious illness, fever, rigors, diaphoresis. Denies recent upper respiratory tract or lower respiratory tract symptoms. Denies nausea or vomiting. Denies abdominal pain. Denies diarrhea or constipation. Denies dysuria, urgency, frequency, hematuria. Review of Systems Status of ROS: Reports: 10 or more systems reviewed and unremarkable except as noted in History and below Narrative: Generally rather physically active without limiting symptoms. Notes increasing arthralgias of lower extremities for which he ordinarily takes [id number] ibuprofen 3 tablets 3 times daily. Obtain some relief from this. [facility] Medical History (Updated 03/24/23 @ 19:29 by Jose Powell MD) Hyperthyroidism ?E05.90 - Thyrotoxicosis, unspecified without thyrotoxic crisis or storm (ICD-10) Rupture of left biceps tendon ?S46.212A - Strain of muscle, fascia and tendon of other parts of biceps, left arm, initial encounter (ICD-10) Osteoarthritis of left shoulder ?M19.012 - Primary osteoarthritis, left shoulder (ICD-10) Rotator cuff tear, left ?M75.102 - Unspecified rotator cuff tear or rupture of left shoulder, not specified as traumatic (ICD-10) Urinary retention due to benign prostatic hyperplasia ?N40.1 - Benign prostatic hyperplasia with lower urinary tract symptoms (ICD- 10) ?R33.8 - Other retention of urine (ICD-10) Sepsis ?A41.9 - Sepsis, unspecified organism (ICD-10) Escherichia coli urinary tract infection ?N39.0 - Urinary tract infection, site not specified (ICD-10) ?B96.20 - Unspecified Escherichia coli [E. coli] as the cause of diseases classified elsewhere (ICD-10) Encounter for counseling regarding advance directives (10/19/16) ?Z71.89 - Other specified counseling (ICD-10) Calculus of urinary bladder ?N21.0 - Calculus in bladder (ICD-10) History of bladder stone ?Z87.448 - Personal history of other diseases of urinary system (ICD-10) Surgical History History of arthroscopy of right shoulder ?Z98.890 - Other specified postprocedural states (ICD-10) History of hernia repair ?Z98.890 - Other specified postprocedural states (ICD-10) ?Z87.19 - Personal history of other diseases of the digestive system (ICD-10) History of arthroscopy of left shoulder (12/25/08) ?Z98.890 - Other specified postprocedural states (ICD-10) Family History Mother Pancreatic cancer Social History What is your current living situation?: I presently have a place to live Problems where you live: no known problems Problems where you live details: None In the past 12 months, utilities in danger of being shut off: no In past 12 months, lack of transportation kept you from medical appts, meetings, work, or getting things needed for daily living: no In the past 12 mos, have been you worried that your food would run out before you had money to buy more?: never true In the past 12 mos, the food you bought just didn't last and you didn't have money to buy more?: never true Highest level of school completed/degree received: Master's degree Smoking Status: Never smoker Do you use any of these nicotine containing products: None Second hand tobacco smoke exposure: No How often do you have a drink containing alcohol: 4 or more times a week Alcohol type: beer and wine How many standard drinks containing alcohol do you have on a typical day: 1 or 2 How often do you have six or more drinks on one occasion: Never AUDIT-C Alcohol total score: 4 Non-prescribed substance use: denies use Caffeine: Yes (1 cup of tea or 1 pop a day) Are you now , , , , never or living with a partner: Social isolation score (0-1 are the most socially isolated patients): 1 How often does anyone, including family, friends and others, physically hurt you : never How often does anyone, including family, friends and others, insult or talk down to you: never How often does anyone, including family, friends and others, threaten you with harm: never How often does anyone, including family, friends and others, scream or curse at you: never service: No Meds Home Medications and Allergies Home Medications Medication Instructions Recorded Confirmed Type Lactobacillus acidophilus 10 10,000 mmu cells PO ONCE 10/27/21 11/27/22 History billion cell capsule antiarthritic combination no.2 900 mg PO 10/27/21 11/27/22 History mg tablet (glucosamine-chondroitin) calcium carbonate 600 mg calcium 600 mg PO QDAY 10/27/21 11/27/22 History (1,500 mg) tablet (Calcium) cholecalciferol (vitamin D3) 25 1,000 unit PO QDAY 10/27/21 11/27/22 History mcg (1,000 unit) capsule methimazole 5 mg tablet 2.5 mg PO DAILY 10/27/21 11/27/22 History multivitamin (Multiple Vitamins 1 tab PO QDAY 10/27/21 11/27/22 History tablet) tamsulosin 0.4 mg capsule 0.4 mg PO .Bedtime 10/27/21 11/27/22 History alfalfa 250 mg tablet mg PO 12/17/21 11/27/22 History vit C 250 mg-vit E 90 mg-zinc 40 1 tab PO QDAY 12/17/21 11/27/22 History mg-copper 1 [id number] capsule (PreserVision AREDS-2) chlorthalidone 25 mg tablet mg PO 03/24/23 History sertraline 50 mg tablet mg PO 03/24/23 History sildenafil 100 mg tablet mg 03/24/23 History simvastatin 20 mg tablet 20 mg PO QPM 03/24/23 03/24/23 History Allergies Allergy/AdvReac Type Severity Reaction Status Date / Time lisinopril Allergy Unknown Cough Verified 03/24/23 14:02 Sulfa drugs Allergy Mild cannot Uncoded 11/27/22 18:48 remember FISH Allergy Unknown Uncoded 11/27/22 18:48 Exam Narrative: Exam Narrative: I examined patient in his hospital room. Appears comfortable in no acute distress. Vision and hearing are grossly normal. Alert and oriented to self, place, time, situation. Friendly, articulate, cooperative. No receptive or expressive aphasia. Cranial nerves 3-12 grossly normal. No ptosis. Extraocular muscles are intact. Independent transfer, station, and gait. No tremor, asterixis, or ataxia. External auditory canals are clear with normal tympanic membranes. Midline nasal septum. Dentition in fair repair. Neck is supple. Midline trachea. No head neck lymphadenopathy. Lungs are clear to auscultation, without wheezing, rhonchi, or rales. Chest wall excursions are full. No CVA tenderness. Heart tones with regular rhythm, normal S1-S2, without murmur, gallop, or rub. PMI is not laterally displaced. Abdomen with active bowel sounds, soft, nontender. Extremities without edema. Skin is warm, dry, intact. Const: Vital Signs, click to edit/add: Vital Signs - 24 hr 03/24/23 14:07 03/24/23 14:12 03/24/23 14:22 Temperature 97.3 F L Pulse Rate 72 Pulse Rate [Pulse Oximeter] 67 Respiratory Rate 16 Blood Pressure 142/69 H Blood Pressure [Le ft Arm] Blood Pressure [Ri ght Upper Arm] 127/67 Pulse Oximetry 96 94 Oxygen Delivery Me thod Room Air 03/24/23 14:26 03/24/23 14:27 03/24/23 14:31 Temperature 98.2 F Pulse Rate 66 Pulse Rate [Pulse Oximeter] 67 Respiratory Rate 16 Blood Pressure 133/69 Blood Pressure [Le ft Arm] Blood Pressure [Ri ght Upper Arm] Pulse Oximetry 96 96 93 Oxygen Delivery Me thod Room Air 03/24/23 14:32 03/24/23 14:40 03/24/23 14:41 Temperature Pulse Rate 66 67 65 Pulse Rate [Pulse Oximeter] Respiratory Rate Blood Pressure 126/70 Blood Pressure [Le ft Arm] Blood Pressure [Ri ght Upper Arm] Pulse Oximetry 92 91 95 Oxygen Delivery Me thod 03/24/23 14:42 03/24/23 14:50 03/24/23 14:51 Temperature 98.3 F Pulse Rate 70 63 63 Pulse Rate [Pulse Oximeter] Respiratory Rate 12 Blood Pressure 126/70 130/72 Blood Pressure [Le ft Arm] Blood Pressure [Ri ght Upper Arm] Pulse Oximetry 97 91 [facility] 03/24/23 14:52 03/24/23 14:57 03/24/23 15:21 Temperature 98.3 F Pulse Rate 64 63 61 Pulse Rate [Pulse Oximeter] Respiratory Rate 12 Blood Pressure 130/72 160/85 H Blood Pressure [Le ft Arm] Blood Pressure [Ri ght Upper Arm] Pulse Oximetry 93 94 92 [facility] 03/24/23 15:22 03/24/23 15:30 03/24/23 15:31 Temperature Pulse Rate 61 63 60 Pulse Rate [Pulse Oximeter] Respiratory Rate Blood Pressure 152/83 H Blood Pressure [Le ft Arm] Blood Pressure [Ri ght Upper Arm] Pulse Oximetry 94 95 96 [facility] 03/24/23 15:47 03/24/23 15:50 03/24/23 15:54 Temperature Pulse Rate 61 63 60 Pulse Rate [Pulse Oximeter] Respiratory Rate Blood Pressure Blood Pressure [Le ft Arm] Blood Pressure [Ri ght Upper Arm] Pulse Oximetry 95 93 93 [facility] 03/24/23 15:57 03/24/23 16:00 03/24/23 16:10 Temperature 98.3 F Pulse Rate 61 60 59 L Pulse Rate [Pulse Oximeter] Respiratory Rate 12 Blood Pressure 152/83 H Blood Pressure [Le ft Arm] Blood Pressure [Ri ght Upper Arm] Pulse Oximetry 94 94 98 [facility] 03/24/23 17:00 Temperature 97.9 F Pulse Rate Pulse Rate [Pulse Oximeter] 62 Respiratory Rate 16 Blood Pressure Blood Pressure [Le ft Arm] 192/88 H Blood Pressure [Ri ght Upper Arm] Pulse Oximetry 93 [facility] Hospital[facility] - H&P: Result Labs Labs: Short CBC 03/24/23 Range/Units 14:05 WBC 6.20 (4.50-11.00) K/uL Hgb 13.3 L (13.5-17.5) gm/dL Hct 41.3 (37.0-53.0) % Plt Count 180 (140-440) K/uL BMP 03/24/23 14:05 Sodium 137 Potassium 3.6 Chloride 102 Carbon Dioxide 26 BUN 25 Creatinine 1.3 Glucose 121 H Calcium 9.6 Imaging MR Brain: Attestation: I have reviewed the pertinent imaging results. Radiologist's impression: 1. No evidence of acute intracranial abnormality 2. Mild generalized cerebral volume loss, mild chronic microangiopathy changes, and chronic left thalamic lacunar infarct. CT angiogram of the neck: Attestation: I have reviewed the pertinent imaging results. Radiologist's impression: IMPRESSION: 1. No significant carotid or vertebral artery stenosis or dissection. 2. 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 CT angiogram of the head: Attestation: I have reviewed the pertinent imaging results. Radiologist's impression: IMPRESSION: Unremarkable head CTA. No large vessel occlusion. CT scan - head: Attestation: I have reviewed the pertinent imaging results. Radiologist's impression: IMPRESSION: 1. Left thalamic lacunar infarct, age-indeterminate. 2. Nonspecific white matter hypodensities commonly seen with small vessel disease. Assessment and Plan Assessment and plan (1) Brain TIA: Problem comment: - 30-40 minute transient episode of right arm and face numbness and clumsiness associated with dysarthria. 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 No evidence of acute intracranial abnormality 2. Mild generalized cerebral volume loss, mild chronic microangiopathy changes, and chronic left thalamic lacunar infarct. - loaded with aspirin 325 mg x1 dose then 81 mg daily thereafter - neurologist recommended dual anti-platelet therapy with clopidogrel for 1 month, loaded with 300 mg x 1 dose then 70 mg daily thereafter. - transthoracic echocardiogram ordered on 03/24/2023 - fasting lipid panel ordered for the morning of 03/25/2023, if LDL greater than 70, stop simvastatin and start atorvastatin 40 mg daily - PT/OT some/speech therapy consultation - neuro checks q.4 hours while in hospital Status: Acute (3) Calculus of urinary bladder: Problem comment: - drinks upwards of 14 glasses of water daily to address this issue Status: Acute (4) Hyperthyroidism: Problem comment: - on methimazole 2.5 mg once daily Status: Acute Plan 1. Reviewed impression with patient and . 2. Answered their questions. 3. They are agreeable with above stated plans and recommendations.
[2023-03-24] MEDS: ENOXAPARIN 40 MG/0.4 ML INJ SUBCUT (20:36)
[2023-03-24] MEDS: SIMVASTATIN 20 MG TABLET PO (20:36)
[2023-03-24] MEDS: TAMSULOSIN HCL 0.4 MG CAPSULE PO (20:36)
--- NOTE | 2023-03-24 22:38 | PC.NURSE ---
End of Shift: Patient pleasant and cooperative, Alert and oriented. Patient hypertensive, but vitally stable, lungs clear, BS WNL, IV running NS at 75. Patient's neuros intact. Patient tele showed first degree HB with BBB. Patient independent in room, and denies pain. Patient tolerating regular diet. Patient urinating.
[2023-03-25 02:02] VITALS: PULSE 58
[2023-03-25 03:00] VITALS: BP 149/87; PULSE 64; RESP 20; TEMP 36.5; O2SAT 95
--- NOTE | 2023-03-25 05:36 | PC.NURSE ---
[id number] PT slept well during night, up to br x1 ind and another time SBA. Pt appeared unsteady with ambulating, when asked if pt was light headed or dizzy pt reports he has vertigo when asked if this was new or old pt replied I've had it for 1, 3 or 6 months now. Nurse asked pt if he has had falls at home recently, pt replied about 2 weeks ago, also informed nurse that one recent fall resulted in facial bruising and breaking his teeth crown Educated pt on importance of calling for help when ambulating in room due to fall risk, pt agrees. Denies any numbing or weakness to extremities, headache, chest pain, or sob. A&O x4.
[2023-03-25 06:52] LABS: Cholesterol* 118 mg/dL (90-199)
[2023-03-25 06:53] LABS: HDL Cholesterol* 42 mg/dL (>=40); LDL Cholesterol Calculated 59 mg/dL (<100); Triglycerides* 84 mg/dL (40-149)
[2023-03-25 07:56] VITALS: PULSE 80
[2023-03-25 08:31] VITALS: BP 147/75; PULSE 62; RESP 18; TEMP 36.9; O2SAT 93
[2023-03-25] MEDS: SERTRALINE 50 MG TABLET PO (08:33)
[2023-03-25] MEDS: ASPIRIN 81 MG TAB.CHEW PO (08:33)
[2023-03-25] MEDS: CHLORTHALIDONE 25 MG TABLET PO (08:33)
[2023-03-25] MEDS: methIMAzole 5 MG TABLET 2.5 MG PO (08:33)
[2023-03-25] MEDS: CLOPIDOGREL 75 MG TABLET PO (08:33)
[2023-03-25] MEDS: SODIUM CHLORIDE 0.9 % (FLUSH) 10 ML SYRINGE 5 ML IVF (08:34)
--- NOTE | 2023-03-25 11:34 | NUTR.NU ---
RDN with MD consult for TIA. Patient admitted for TIA. Current diet is Heart Healthy (Low Fat/Low Cholesterol/2 gm Sodium). Meal intakes have been 100% since admit. Current weight 200lb 9oz; height 5ft 10in; BMI is overweight at 28.8 kg/m2. Food allergy of fish. RDN met with patient and (Ree, designated caregiver) whom reports doing well. His weight has been stable recently. reports eating fairly healthy at home. She makes most of the meals and does not add salt, and chooses lean meats. Patient reports enjoying cheese. Patient and agreed to receive diet education related to Heart Healthy diet. Discussed following a Mediterranean-style diet using the plate method that includes ? plate non-starchy vegetables and fruit, ? plate whole grains/starch, ? plate healthy protein (fish, poultry, legumes, nuts/seeds), and healthy fats. Discussed limiting saturated fat and sodium intake. Handouts provided to support discussion. RDN contact information provided and encouraged patient to call with questions. RDN to follow up as needed.
[2023-03-25 11:46] VITALS: BP 153/76; PULSE 60; RESP 16; TEMP 36.6; O2SAT 94
--- NOTE | 2023-03-25 14:55 | PM.DS1 ---
DS: Providers Provider Date Seen: 03/25/23 Date of admission: 03/24/23 16:56 Primary care physician: Dave Romero MD Admitting Clinician: Jose Powell MD Consults: 03/24/23 17:25 Consult to Nutrition [CONS] Routine Comment: Reason for consult:: Miscellaneous Comment: TIA Consult to Occupational Therapy [CONS] Routine Comment: Reason(s) for OT Consult:: Evaluate and Treat Any Restrictions?:: No Restrictions Consult to Physical Therapy [CONS] Routine Comment: Reason(s) for PT Consult:: Evaluate and Treat Any Restrictions?:: No Restrictions Consult to Speech Therapy [CONS] Routine Comment: Reason(s) for Speech Consult:: Speaking Difficulty Comment: TIA Attending Physician on discharge: Lulu Carson [facility], PA-C [facility] Date of Discharge: 03/25/23 DS: Diagnosis Discharge Diagnosis (1) Brain TIA: Status: Acute Problem details: 30-40 minute transient episode of right arm and face numbness and clumsiness associated with dysarthria Admitted for observation, further workup. Telemetry unremarkable. Echocardiogram final read pending at time of discharge. Lipid panel essentially unremarkable. Physical therapy and occupational therapy without acute findings. Speech therapy did not find it necessary to do a formal evaluation. Discussed findings with Dr. Schroeder, tele neurology, recommending aspirin 81 mg daily indefinitely, Plavix 75 mg daily times 30 days. Would recommend atorvastatin in place of simvastatin if tolerated however patient does not tolerate atorvastatin given previous trial and uncomfortable side effects. He will remain on simvastatin. Outpatient follow-up with PCP in 7-10 days. (2) Thalamic stroke: Status: Acute Problem details: - new diagnosis as of 03/24/2023 - MRI of the head on 03/24/2023 demonstrates the following findings: 1. No evidence of acute intracranial abnormality 2. Mild generalized cerebral volume loss, mild chronic microangiopathy changes, and chronic left thalamic lacunar infarct. (3) Calculus of urinary bladder: Status: Acute Problem details: - drinks upwards of 14 glasses of water daily to address this issue (4) Hyperthyroidism: Status: Acute Problem details: - on methimazole 2.5 mg once daily DS: Summary Hospital Course Hospital Course: [age] year old male past medical history significant for hyperthyroidism, dyslipidemia, was admitted to the medical floor for further workup suspected TIA. Course of care and details as noted above. Continue aspirin 81 mg daily indefinitely. Continue Plavix 75 mg daily times 30 days Continue simvastatin as unable to tolerate atorvastatin Remainder of chronic medical comorbidities were monitored and managed with home medications. Status at Discharge Overall status at discharge: patient is back to baseline Time Spent with Patient Time attestation: Total time spent providing and/or coordinating discharge services: Time spent: Greater than 30 minutes Exam Narrative: Exam Narrative: PHYSICAL EXAM General: Pleasant, conversant, NAD Cardiovascular: RRR Pulmonary: No dyspnea Neurological: Alert, answering questions appropriately Skin: Warm, dry. Const: Vital Signs, click to edit/add: Vital Signs - 24 hr 03/24/23 14:57 03/24/23 15:21 03/24/23 15:22 Temperature 98.3 F Pulse Rate 63 61 61 Pulse Rate [Pulse Oximeter] Respiratory Rate 12 Blood Pressure 130/72 160/85 H Blood Pressure [Le ft Arm] Pulse Oximetry 94 92 94 Oxygen Delivery Me thod Room Air 03/24/23 15:30 03/24/23 15:31 03/24/23 15:47 Temperature Pulse Rate 63 60 61 Pulse Rate [Pulse Oximeter] Respiratory Rate Blood Pressure 152/83 H Blood Pressure [Le ft Arm] Pulse Oximetry 95 96 95 Oxygen Delivery Me thod 03/24/23 15:50 03/24/23 15:54 03/24/23 15:57 Temperature 98.3 F Pulse Rate 63 60 61 Pulse Rate [Pulse Oximeter] Respiratory Rate 12 Blood Pressure 152/83 H Blood Pressure [Le ft Arm] Pulse Oximetry 93 93 94 Oxygen Delivery Me thod 03/24/23 16:00 03/24/23 16:10 03/24/23 16:50 Temperature Pulse Rate 60 59 L Pulse Rate [Pulse Oximeter] Respiratory Rate Blood Pressure Blood Pressure [Le ft Arm] Pulse Oximetry 94 98 95 Oxygen Delivery Me thod Room Air 03/24/23 17:00 03/24/23 19:50 03/24/23 22:08 Temperature 97.9 F 97.9 F Pulse Rate 65 Pulse Rate [Pulse Oximeter] 62 65 Respiratory Rate 16 20 Blood Pressure Blood Pressure [Le ft Arm] 192/88 H 165/80 H Pulse Oximetry 93 95 Oxygen Delivery Nc thod Room Air Room Air 03/24/23 23:00 03/24/23 23:00 03/25/23 02:02 Temperature 97.9 F Pulse Rate 58 L Pulse Rate [Pulse Oximeter] 58 L Respiratory Rate 20 20 Blood Pressure Blood Pressure [Le ft Arm] 172/92 H Pulse Oximetry 94 94 Oxygen Delivery Me thod Room Air Room Air 03/25/23 03:00 03/25/23 07:56 03/25/23 08:31 Temperature 97.7 F Pulse Rate 80 Pulse Rate [Pulse Oximeter] 64 Respiratory Rate 20 18 Blood Pressure Blood Pressure [Le ft Arm] 149/87 H Pulse Oximetry 95 93 Oxygen Delivery Me thod Room Air Room Air 03/25/23 08:31 03/25/23 11:46 Temperature 98.4 F 97.9 F Pulse Rate Pulse Rate [Pulse Oximeter] 62 60 Respiratory Rate 18 16 Blood Pressure Blood Pressure [Le ft Arm] 147/75 H 153/76 H Pulse Oximetry 93 94 Oxygen Delivery Nc thod Room Air Room Air DS: Data Data Completed and Pending Labs on day of discharge: Labs from last 24 hours 03/25/23 05:53 Triglycerides 84 Cholesterol 118 LDL Cholesterol, Calc 59 HDL Cholesterol 42 Discharge Plan Discharge Disposition: Home, Self-Care Date of Admission: 03/24/23 16:56 Attending Provider on Discharge: Lulu Carson Primary Care Provider: Dave Romero Condition: Improved Anticipated Discharge Date/Time: 03/25/23 14:32 Discharge Medications: New clopidogrel 75 mg Tablet 75 mg PO DAILY Qty: 30 0RF aspirin [Children's Aspirin] 81 mg Tablet,Chewable 81 mg PO DAILY Qty: 90 0RF simvastatin 20 mg Tablet 20 mg PO HS Qty: 30 0RF Continued multivitamin [Multiple Vitamins] Tablet 1 tab PO DAILY cholecalciferol (vitamin D3) 25 mcg (1,000 unit) capsule 1,000 unit PO DAILY calcium carbonate [Calcium 600] 600 mg calcium (1,500 mg) tablet 600 mg PO DAILY methimazole 5 mg tablet 2.5 mg PO DAILY tamsulosin 0.4 mg capsule 0.4 mg PO BID PreserVision AREDS-2 250-90-40-1 mg capsule 1 tab PO DAILY chlorthalidone 25 mg tablet 12.5 mg PO DAILY sildenafil 100 mg tablet 100 mg PO DAILY PRN Patient Comments: PLEASE SEE ATTACHED FOR DETAILED DIRECTIONS sertraline 50 mg tablet 25 mg PO DAILY Discontinued simvastatin 20 mg tablet 20 mg PO HS Discharge Orders: Discharge Order (Routine); Ordered 03/25/23 Ordered By: Lulu Carson Patient Education: Transient Ischemic Attack (GEN) Additional Instructions: Continue to take aspirin 81 mg once daily indefinitely. You will take Plavix 75 mg once daily for 30 days. Stop your simvastatin and instead take atorvastatin once daily. Activity Level: No Restrictions Discharge Diet: 2 gm Sodium Follow Up Appointments: Dave Romero MD [Primary Care Provider] - 04/01/23 (Outpatient ) Forms: [employer] Info Instructions
== END 2023-03-25 16:05 | disposition home or self-care (01) ==
LOC: ED 15:53 → MEDSURG 16:42 → ED 16:57 → MEDSURG 16:57
PROVIDERS: Admitting Provider Internal Medicine; Emergency Provider Family Medicine; PCP Family Medicine; Visit Provider Internal Medicine
DX: G45.9 Transient cerebral ischemic attack, unspecified (principal); I63.81 Other cerebral infarction due to occlusion or stenosis of small artery; E05.90 Thyrotoxicosis, unspecified without thyrotoxic crisis or storm; R20.2 Paresthesia of skin; R47.81 Slurred speech; R26.81 Unsteadiness on feet; R47.1 Dysarthria and anarthria; E78.5 Hyperlipidemia, unspecified; N21.0 Calculus in bladder; M13.861 Other specified arthritis, right knee; N40.1 Benign prostatic hyperplasia with lower urinary tract symptoms; Z87.448 Personal history of other diseases of urinary system; Z98.890 Other specified postprocedural states; Z87.19 Personal history of other diseases of the digestive system
CPT/HCPCS: 36415; 70450; 70496; 70498; 70551; 80048; 80061; 82962; 85025; 85610; 85730; 93005; 93306; 94761; 96360; 96361; 96372; 97110; 97112; 97116; 97161; 97165; 99284; 99285; 99291; G0378; G0427; A9270; J1650; J7030; Q9967

== ENCOUNTER 2023-03-26 14:13 | Emergency (ER) | payer MEDICARE, BC, SELFPAY ==
[2023-03-26] VITALS (12 sets, daily range): BP systolic 108–185; BP diastolic 60–88; PULSE 63–71; RESP 18; TEMP 36.6; O2SAT 92–96; BMI 28.7
--- NOTE | 2023-03-26 14:23 | ED.GENADULT ---
HPI - General Adult General Chief complaint: Neuro Symptoms/Altered Deficit Stated complaint: diffuculty speaking Time Seen by Provider: 03/26/23 14:17 History of Present Illness HPI narrative: Patient felt for 1-2 hours this afternoon that he couldn' t say what I wanted to say. Patient reports he could read/ understand, but not formulate sentences. Was dc'd yesterday r/t mini stroke. 88-year-old man presenting to the emergency department following discharge yesterday after I admitted him with concern of CVA. Had demonstrated an expressive aphasia. 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 Vasculature looked good. To take aspirin and clopidogrel as well as statin. This afternoon had another episode at rest, did not do one of those challenging workouts, where for nearly 2 hours could not say what he wanted to say. No headache. No discoordination. No visual loss. No chest pain or shortness of breath. Arrives normotensive. Related Data Home Medications Medication Instructions Recorded Confirmed calcium carbonate 600 mg calcium 600 mg PO DAILY 10/27/21 04/05/23 (1,500 mg) tablet (Calcium) cholecalciferol (vitamin D3) 25 1,000 unit PO DAILY 10/27/21 04/05/23 mcg (1,000 unit) capsule methimazole 5 mg tablet 2.5 mg PO DAILY 10/27/21 04/05/23 multivitamin (Multiple Vitamins 1 tab PO DAILY 10/27/21 04/05/23 tablet) tamsulosin 0.4 mg capsule 0.4 mg PO BID 10/27/21 04/05/23 vit C 250 mg-vit E 90 mg-zinc 40 1 tab PO DAILY 12/17/21 04/05/23 mg-copper 1 [id number] capsule (PreserVision AREDS-2) chlorthalidone 25 mg tablet 12.5 mg PO DAILY 03/24/23 04/05/23 sertraline 50 mg tablet 25 mg PO DAILY 03/24/23 04/05/23 sildenafil 100 mg tablet 100 mg PO DAILY PRN 03/24/23 03/25/23 Previous Rx's Medication Instructions Recorded aspirin 81 mg chewable tablet 81 mg PO DAILY #90 tabs 03/25/23 (Children's Aspirin) clopidogrel 75 mg tablet 75 mg PO DAILY #30 tabs 03/25/23 simvastatin 20 mg tablet 20 mg PO HS #30 tabs 03/25/23 Allergies Allergy/AdvReac Type Severity Reaction Status Date / Time Fish Containing Products Allergy Unknown Verified 03/26/23 14:19 lisinopril Allergy Unknown Cough Verified 03/26/23 14:19 Sulfa (Sulfonamide Allergy Unknown Verified 03/26/23 14:19 Antibiotics) Review of Systems Status of ROS: Reports: 6 or more systems reviewed and unremarkable except as noted in History and below [facility] History (Updated 04/10/23 @ 00:01 by Background Dabrissa) Hyperthyroidism ?E05.90 - Thyrotoxicosis, unspecified without thyrotoxic crisis or storm (ICD-10) Rupture of left biceps tendon ?S46.212A - Strain of muscle, fascia and tendon of other parts of biceps, left arm, initial encounter (ICD-10) Osteoarthritis of left shoulder ?M19.012 - Primary osteoarthritis, left shoulder (ICD-10) Rotator cuff tear, left ?M75.102 - Unspecified rotator cuff tear or rupture of left shoulder, not specified as traumatic (ICD-10) Urinary retention due to benign prostatic hyperplasia ?N40.1 - Benign prostatic hyperplasia with lower urinary tract symptoms (ICD-10) ?R33.8 - Other retention of urine (ICD-10) Sepsis ?A41.9 - Sepsis, unspecified organism (ICD-10) Escherichia coli urinary tract infection ?N39.0 - Urinary tract infection, site not specified (ICD-10) ?B96.20 - Unspecified Escherichia coli [E. coli] as the cause of diseases classified elsewhere (ICD-10) Encounter for counseling regarding advance directives (10/19/16) ?Z71.89 - Other specified counseling (ICD-10) Calculus of urinary bladder ?N21.0 - Calculus in bladder (ICD-10) History of bladder stone ?Z87.448 - Personal history of other diseases of urinary system (ICD-10) Surgical History History of arthroscopy of right shoulder ?Z98.890 - Other specified postprocedural states (ICD-10) History of hernia repair ?Z98.890 - Other specified postprocedural states (ICD-10) ?Z87.19 - Personal history of other diseases of the digestive system (ICD-10) History of arthroscopy of left shoulder (12/25/08) ?Z98.890 - Other specified postprocedural states (ICD-10) Family History Mother Pancreatic cancer Social History What is your current living situation?: I presently have a place to live Problems where you live: no known problems Problems where you live details: None In the past 12 months, utilities in danger of being shut off: no In past 12 months, lack of transportation kept you from medical appts, meetings, work, or getting things needed for daily living: no In the past 12 mos, have been you worried that your food would run out before you had money to buy more?: never true In the past 12 mos, the food you bought just didn't last and you didn't have money to buy more?: never true Highest level of school completed/degree received: Master's degree Smoking Status: Never smoker Do you use any of these nicotine containing products: None Second hand tobacco smoke exposure: No How often do you have a drink containing alcohol: 4 or more times a week Alcohol type: beer and wine How many standard drinks containing alcohol do you have on a typical day: 1 or 2 How often do you have six or more drinks on one occasion: Never AUDIT-C Alcohol total score: 4 Non-prescribed substance use: denies use Caffeine: Yes (1 cup of tea or 1 pop a day) Are you now , , , , never or living with a partner: Social isolation score (0-1 are the most socially isolated patients): 1 How often does anyone, including family, friends and others, physically hurt you: never How often does anyone, including family, friends and others, insult or talk down to you: never How often does anyone, including family, friends and others, threaten you with harm: never How often does anyone, including family, friends and others, scream or curse at you: never service: No Exam Narrative: Exam Narrative: Pleasant. NAD. Skin is warm and dry. Articulating smoothly. Cranial nerves 2-12 are intact, pupils are equal. Breathing easily. Heart in regular rate and rhythm. Moving all extremities without difficulty. No sensory losses. GCS 15. Const: Vital Signs, click to edit/add: Vital Signs - 24 hr 03/26/23 14:20 03/26/23 14:33 03/26/23 14:34 Temperature 97.8 F Pulse Rate 71 70 Pulse Rate [Pulse Oximeter] 71 Respiratory Rate 18 Blood Pressure 127/73 Blood Pressure [Ri ght Upper Arm] 124/60 Pulse Oximetry 96 94 94 Oxygen Delivery Me thod Room Air 03/26/23 15:00 03/26/23 15:01 03/26/23 15:30 Temperature Pulse Rate 67 67 65 Pulse Rate [Pulse Oximeter] Respiratory Rate Blood Pressure 118/67 Blood Pressure [Ri ght Upper Arm] Pulse Oximetry 92 92 93 Oxygen Delivery Me thod 03/26/23 15:31 03/26/23 16:00 03/26/23 16:01 Temperature Pulse Rate 64 64 64 Pulse Rate [Pulse Oximeter] Respiratory Rate Blood Pressure 108/72 147/79 H Blood Pressure [Ri ght Upper Arm] Pulse Oximetry 94 95 94 Oxygen Delivery Me thod 03/26/23 16:02 03/26/23 17:02 03/26/23 17:03 Temperature Pulse Rate 63 67 66 Pulse Rate [Pulse Oximeter] Respiratory Rate Blood Pressure 185/88 H Blood Pressure [Ri ght Upper Arm] Pulse Oximetry 95 95 96 Oxygen Delivery Me thod Course Vital Signs Vital signs: Initial Vital Signs Temperature 97.8 F 03/26/23 14:20 Temperature Source Temporal Artery Scan 03/26/23 14:20 Pulse Rate 71 03/26/23 14:20 Respiratory Rate 18 03/26/23 14:20 Blood Pressure 124/60 03/26/23 14:20 Blood Pressure Mean 81 03/26/23 14:20 Blood Pressure Position Sitting 03/26/23 14:20 Pulse Oximetry 96 03/26/23 14:20 Oxygen Delivery Method Room Air 03/26/23 14:20 Vital Signs Temperature 97.8 F 03/26/23 14:20 Pulse Rate 71 03/26/23 14:20 Respiratory Rate 18 03/26/23 14:20 Blood Pressure 124/60 03/26/23 14:20 Pulse Oximetry 96 03/26/23 14:20 Oxygen Delivery Method Room Air 03/26/23 14:20 Temperature 97.8 F 03/26/23 14:20 Pulse Rate 66 03/26/23 17:03 Respiratory Rate 18 03/26/23 14:20 Blood Pressure 185/88 H 03/26/23 17:03 Pulse Oximetry 96 03/26/23 17:03 Oxygen Delivery Method Room Air 03/26/23 14:20 Medical Decision Making MDM Narrative Medical decision making narrative: Monitor during time in the emergency department. Puzzling presentation here again. Would appear to be TIA. I suppose attack of anxiety could explain this it does not appear particularly stressed. Atypical migraine? Hypotensive episode plus or minus underlying arrhythmia? Initial EKG is reassuring in normal sinus rhythm. Discussed this case again with Neurology and recommending repeat basic brain MRI and further recommendations depending on this result. This is done. Looks unchanged from yesterday's. Indication: expressive aphasia Technique: Noncontrast sagittal T1 weighted, axial FLAIR, axial T2 weighted, and axial diffusion weighted sequences are provided. Comparison: MRI 03/24/2023 Findings: Moderate generalized parenchymal volume loss. The midline structures are centrally located with no evidence of shift. Mild scattered foci of T2 prolongation in the subcortical and periventricular white matter of both cerebral hemispheres. Small chronic lacunar infarct in the left thalamus. There are no suspicious intra or extra-axial fluid collections. No evidence of pathologic susceptibility artifacts. No region of restricted diffusion. Expected flow voids in the cavernous carotids and basilar artery. Mild polypoid mucosal thickening in the right maxillary sinus. Impression: 1. No evidence of acute intracranial abnormality. Small chronic lacunar infarct in the left thalamus. No significant changes compared to the prior exam. 2. Moderate generalized parenchymal volume loss. Mild chronic small vessel white matter ischemic changes. On [place] back to Neurology, recommendations are to increase aspirin to 325mg daily. Mr. Scales was otherwise well during time/period of observation in the emergency department. See patient discharge plan ECG Data Attestation: I personally reviewed and interpreted this ECG as follows: (Sinus rhythm rate of 72 without acute ischemic changes.) Discharge Plan Discharge Clinical Impression: Expressive aphasia Patient Disposition: Home w/ Parent or Adult Condition: Improved Additional Instructions: Stay well-hydrated. Get regular and quality sleep. Increase aspirin to 325 mg of enteric-coated daily. Continue Plavix dosing. Follow-up as planned/scheduled. Return for new and focal weakness, speech symptoms lasting an hour, severe headache, loss of vision, associated repeated vomiting. Prescriptions: No Action multivitamin [Multiple Vitamins] Tablet 1 tab PO DAILY cholecalciferol (vitamin D3) 25 mcg (1,000 unit) capsule 1,000 unit PO DAILY calcium carbonate [Calcium 600] 600 mg calcium (1,500 mg) tablet 600 mg PO DAILY methimazole 5 mg tablet 2.5 mg PO DAILY tamsulosin 0.4 mg capsule 0.4 mg PO BID PreserVision AREDS-2 250-90-40-1 mg capsule 1 tab PO DAILY chlorthalidone 25 mg tablet 12.5 mg PO DAILY sildenafil 100 mg tablet 100 mg PO DAILY PRN Patient Comments: PLEASE SEE ATTACHED FOR DETAILED DIRECTIONS sertraline 50 mg tablet 25 mg PO DAILY clopidogrel 75 mg Tablet 75 mg PO DAILY Qty: 30 0RF aspirin [Children's Aspirin] 81 mg Tablet,Chewable 81 mg PO DAILY Qty: 90 0RF simvastatin 20 mg Tablet 20 mg PO HS Qty: 30 0RF Follow Up/Referrals: Dave Romero MD [Primary Care Provider] - Stand Alone Forms: [facility] [employer] Info Instructions
--- NOTE | 2023-03-26 15:03 | ED.NURSE ---
Pt discharged from Med/surg yesterday, 03/25/23. Per Dr. Quan, no stroke code. Neurology consult for new onset symptoms.
--- NOTE | 2023-03-26 15:06 | CRLHL7_ITS ---
For Patients: As a result of the Century Cures Act, medical imaging exams and procedure reports are released immediately into your electronic medical record. You may view this report before your referring provider. If you have questions, please contact your health care provider. Indication: expressive aphasia Technique: Noncontrast sagittal T1 weighted, axial FLAIR, axial T2 weighted, and axial diffusion weighted sequences are provided. Comparison: MRI 03/24/2023 Findings: Moderate generalized parenchymal volume loss. The midline structures are centrally located with no evidence of shift. Mild scattered foci of T2 prolongation in the subcortical and periventricular white matter of both cerebral hemispheres. Small chronic lacunar infarct in the left thalamus. There are no suspicious intra or extra-axial fluid collections. No evidence of pathologic susceptibility artifacts. No region of restricted diffusion. Expected flow voids in the cavernous carotids and basilar artery. Mild polypoid mucosal thickening in the right maxillary sinus. Impression: 1. No evidence of acute intracranial abnormality. Small chronic lacunar infarct in the left thalamus. No significant changes compared to the prior exam. 2. Moderate generalized parenchymal volume loss. Mild chronic small vessel white matter ischemic changes. Dictated by Dwight Roberts MD @ 03/26/2023 5:21:19 PM (Electronically Signed)
== END 2023-03-26 17:46 | disposition home or self-care (01) ==
PROVIDERS: Emergency Provider Family Medicine; PCP Family Medicine
DX: R47.01 Aphasia (principal)
CPT/HCPCS: 70551; 93005; 99283; 99284

== ENCOUNTER 2023-04-05 12:26 | Emergency (ER) | payer MEDICARE, BC, SELFPAY ==
[2023-04-05 12:56] VITALS: BP 107/65; PULSE 95; RESP 16; TEMP 36.4; O2SAT 95; BMI 28.0
--- NOTE | 2023-04-05 15:27 | ED_ITS ---
HPI - General Adult General Chief complaint: Dizziness/Vertigo Stated complaint: low blood pressure 60/40 Time Seen by Provider: 04/05/23 15:04 History of Present Illness HPI narrative: This 88-year-old male was at a physical therapy and counter this morning and was noted to have very low blood pressure measured at 60 over 40. the patient states that he has typically had blood pressure around 130 year 140 for systolic value but recently was diagnosed with a TIA and started on aspirin and Plavix. He had an appointment with his primary physician and was also started on chlorthalidone. At the time of arrival here his systolic blood pressure is 107. The patient states that he feels back to normal. His noted that his blood pressure seemed low last night so she did not give him his aspirin. This morning he did not take his chlorthalidone and yet had low blood pressure. The patient did not have any chest pain, shortness of breath, nausea, vomiting, or diaphoresis. Related Data Home Medications Medication Instructions Recorded Confirmed calcium carbonate 600 mg calcium 600 mg PO DAILY 10/27/21 04/05/23 (1,500 mg) tablet (Calcium) cholecalciferol (vitamin D3) 25 1,000 unit PO DAILY 10/27/21 04/05/23 mcg (1,000 unit) capsule methimazole 5 mg tablet 2.5 mg PO DAILY 10/27/21 04/05/23 multivitamin (Multiple Vitamins 1 tab PO DAILY 10/27/21 04/05/23 tablet) tamsulosin 0.4 mg capsule 0.4 mg PO BID 10/27/21 04/05/23 vit C 250 mg-vit E 90 mg-zinc 40 1 tab PO DAILY 12/17/21 04/05/23 mg-copper 1 [id number]-ybjarn capsule (PreserVision AREDS-2) chlorthalidone 25 mg tablet 12.5 mg PO DAILY 03/24/23 04/05/23 sertraline 50 mg tablet 25 mg PO DAILY 03/24/23 04/05/23 sildenafil 100 mg tablet 100 mg PO DAILY PRN 03/24/23 03/25/23 Previous Rx's Medication Instructions Recorded aspirin 81 mg chewable tablet 81 mg PO DAILY #90 tabs 03/25/23 (Children's Aspirin) clopidogrel 75 mg tablet 75 mg PO DAILY #30 tabs 03/25/23 simvastatin 20 mg tablet 20 mg PO HS #30 tabs 03/25/23 Allergies Allergy/AdvReac Type Severity Reaction Status Date / Time Fish Containing Products Allergy Unknown Verified 03/26/23 14:19 lisinopril Allergy Unknown Cough Verified 03/26/23 14:19 Sulfa (Sulfonamide Allergy Unknown Verified 03/26/23 14:19 Antibiotics) Review of Systems Status of ROS: Reports: 10 or more systems reviewed and unremarkable except as noted in History and below Narrative: Constitutional: No fevers, no weight gain or loss. Eyes: No discharge. No vision changes. HENT: No congestion, no sore throat, no ear pain. Cardiovascular: No chest pain, no palpitations. Respiratory: No shortness of breath, no wheezes, no cough. Gastrointestinal: No abdominal pain, no vomiting, no diarrhea. Genitourinary: No dysuria, no hematuria. Musculoskeletal: Normal range of motion. Skin: No rashes, no pruritis. Neurological: No weakness, sensory change, speech change. Endo/Heme/Allergies: No bruising or bleeding. No polydipsia. Pysch: no suicidality, no anxiety, no insomnia. All other systems reviewed and are negative. [facility] Medical History (Updated 04/05/23 @ 15:32 by Steve Calderon MD) Hyperthyroidism ?E05.90 - Thyrotoxicosis, unspecified without thyrotoxic crisis or storm (ICD-10) Rupture of left biceps tendon ?S46.212A - Strain of muscle, fascia and tendon of other parts of biceps, left arm, initial encounter (ICD-10) Osteoarthritis of left shoulder ?M19.012 - Primary osteoarthritis, left shoulder (ICD-10) Rotator cuff tear, left ?M75.102 - Unspecified rotator cuff tear or rupture of left shoulder, not specified as traumatic (ICD-10) Urinary retention due to benign prostatic hyperplasia ?N40.1 - Benign prostatic hyperplasia with lower urinary tract symptoms (ICD- 10) ?R33.8 - Other retention of urine (ICD-10) Sepsis ?A41.9 - Sepsis, unspecified organism (ICD-10) Escherichia coli urinary tract infection ?N39.0 - Urinary tract infection, site not specified (ICD-10) ?B96.20 - Unspecified Escherichia coli [E. coli] as the cause of diseases classified elsewhere (ICD-10) Encounter for counseling regarding advance directives (10/19/16) ?Z71.89 - Other specified counseling (ICD-10) Calculus of urinary bladder ?N21.0 - Calculus in bladder (ICD-10) History of bladder stone ?Z87.448 - Personal history of other diseases of urinary system (ICD-10) Surgical History History of arthroscopy of right shoulder ?Z98.890 - Other specified postprocedural states (ICD-10) History of hernia repair ?Z98.890 - Other specified postprocedural states (ICD-10) ?Z87.19 - Personal history of other diseases of the digestive system (ICD-10) History of arthroscopy of left shoulder (12/25/08) ?Z98.890 - Other specified postprocedural states (ICD-10) Family History Mother Pancreatic cancer Social History What is your current living situation?: I presently have a place to live Problems where you live: no known problems Problems where you live details: None In the past 12 months, utilities in danger of being shut off: no In past 12 months, lack of transportation kept you from medical appts, meetings, work, or getting things needed for daily living: no In the past 12 mos, have been you worried that your food would run out before you had money to buy more?: never true In the past 12 mos, the food you bought just didn't last and you didn't have money to buy more?: never true Highest level of school completed/degree received: Master's degree Smoking Status: Never smoker Do you use any of these nicotine containing products: None Second hand tobacco smoke exposure: No How often do you have a drink containing alcohol: 4 or more times a week Alcohol type: beer and wine How many standard drinks containing alcohol do you have on a typical day: 1 or 2 How often do you have six or more drinks on one occasion: Never AUDIT-C Alcohol total score: 4 Non-prescribed substance use: denies use Caffeine: Yes (1 cup of tea or 1 pop a day) Are you now , , , , never or living with a partner: Social isolation score (0-1 are the most socially isolated patients): 1 How often does anyone, including family, friends and others, physically hurt you : never How often does anyone, including family, friends and others, insult or talk down to you: never How often does anyone, including family, friends and others, threaten you with harm: never How often does anyone, including family, friends and others, scream or curse at you: never service: No Exam Narrative: Exam Narrative: Constitutional: Well-developed, well-nourished, no acute distress. HEENT: Normocephalic, atraumatic. Neck: Normal range of motion. Nontender. Supple. Heart: Regular. No murmurs. Normal rate. Intact distal pulses. Lungs: Clear to auscultation. No chest discomfort. No wheezes, rhonchi, or rales. Abdomen: Normal bowel sounds. Nontender. No rebound tenderness. Genitalia: Deferred. Back: No midline tenderness. Normal range of motion. Extremities: Normal range of motion. No injury. Skin: Intact. No rash. Warm. No erythema or pallor. Neurologic: No altered sensation. No weakness. Alert and oriented. Psychiatric: No suicidality. No anxiety or depression. No insomnia. Nursing notes and vitals signs are reviewed. Const: Vital Signs, click to edit/add: Vital Signs - 24 hr 04/05/23 12:56 Temperature 97.5 F L Pulse Rate [Pulse Oximeter] 95 Respiratory Rate 16 Blood Pressure [Ri ght Upper Arm] 107/65 Pulse Oximetry 95 Oxygen Delivery Me thod Room Air Course Vital Signs Vital signs: Initial Vital Signs Temperature 97.5 F L 04/05/23 12:56 Temperature Source Temporal Artery Scan 04/05/23 12:56 Pulse Rate 95 04/05/23 12:56 Pulse Rhythm Regular 04/05/23 12:56 Respiratory Rate 16 04/05/23 12:56 Blood Pressure 107/65 04/05/23 12:56 Blood Pressure Mean 79 04/05/23 12:56 Blood Pressure Position Sitting 04/05/23 12:56 Pulse Oximetry 95 04/05/23 12:56 Oxygen Delivery Method Room Air 04/05/23 12:56 Vital Signs Temperature 97.5 F L 04/05/23 12:56 Pulse Rate 95 04/05/23 12:56 Respiratory Rate 16 04/05/23 12:56 Blood Pressure 107/65 04/05/23 12:56 Pulse Oximetry 95 04/05/23 12:56 Oxygen Delivery Method Room Air 04/05/23 12:56 Temperature 97.5 F L 04/05/23 12:56 Pulse Rate 95 04/05/23 12:56 Respiratory Rate 16 04/05/23 12:56 Blood Pressure 107/65 04/05/23 12:56 Pulse Oximetry 95 04/05/23 12:56 Oxygen Delivery Method Room Air 04/05/23 12:56 Medical Decision Making MDM Narrative Medical decision making narrative: This patient comes in reporting other episode of low blood pressure. Reviewing his records he is taking tamsulosin and has done so for about 40 years. Additionally he has Viagra on his medication list but states that he has not taken this medicine recently. The new medicine is chlorthalidone and this was prescribed to better control his blood pressure as he did have a TIA a week or so ago. It could be that this medicine is causing hypotension. I did review the patient's records and discussed checking labs and imaging. The patient and his states that he had a good workup rule recently and in a process of shared decision-making declined any further studies today. I did advise him to discontinue the chlorthalidone and record blood pressures for follow-up appointment with the primary physician. This appointment is scheduled to happen next week. If symptoms are recurrent he should return here. Discharge Plan Discharge Clinical Impression: Hypotension due to medication Patient Disposition: Home, Self-Care Condition: Improved Additional Instructions: continue current plans except hold chlorthalidone until follow-up appointment with primary physician. Record blood pressures regularly to bring to this appointment. If symptoms of low blood pressure are recurrent or worsening return to the emergency department. Prescriptions: No Action multivitamin [Multiple Vitamins] Tablet 1 tab PO DAILY cholecalciferol (vitamin D3) 25 mcg (1,000 unit) capsule 1,000 unit PO DAILY calcium carbonate [Calcium 600] 600 mg calcium (1,500 mg) tablet 600 mg PO DAILY methimazole 5 mg tablet 2.5 mg PO DAILY tamsulosin 0.4 mg capsule 0.4 mg PO BID PreserVision AREDS-2 250-90-40-1 mg capsule 1 tab PO DAILY chlorthalidone 25 mg tablet 12.5 mg PO DAILY sildenafil 100 mg tablet 100 mg PO DAILY PRN Patient Comments: PLEASE SEE ATTACHED FOR DETAILED DIRECTIONS sertraline 50 mg tablet 25 mg PO DAILY clopidogrel 75 mg Tablet 75 mg PO DAILY Qty: 30 0RF aspirin [Children's Aspirin] 81 mg Tablet,Chewable 81 mg PO DAILY Qty: 90 0RF simvastatin 20 mg Tablet 20 mg PO HS Qty: 30 0RF Follow Up/Referrals: Dave Romero MD [Primary Care Provider] - Stand Alone Forms: [facility] Info Instructions
== END 2023-04-05 15:45 | disposition home or self-care (01) ==
PROVIDERS: Emergency Provider Emergency Medicine Emergency Medical Services; PCP Family Medicine
DX: I95.2 Hypotension due to drugs (principal)
CPT/HCPCS: 99283; 99284

== ENCOUNTER 2023-07-27 10:45 | Outpatient (RCR) | payer MEDICARE, BC, SELFPAY | END 2023-07-28 11:56 | disposition home or self-care (01) | PROVIDERS: PCP Family Medicine; Visit Provider Family Medicine | DX: M25.571 Pain in right ankle and joints of right foot (principal); M79.671 Pain in right foot; Z51.89 Encounter for other specified aftercare; M76.61 Achilles tendinitis, right leg | CPT/HCPCS: 97110; 97112; 97116; 97161 ==

== ENCOUNTER 2024-05-27 11:20 | Day surgery (SDC) | payer MEDICARE, BC, SELFPAY ==
[2024-05-27 11:25] VITALS: BP 177/87; PULSE 71; TEMP 36.4; O2SAT 96; BMI 28.4
[2024-05-27 11:33] VITALS: PULSE 70
--- NOTE | 2024-05-27 12:44 | ED_ITS ---
HPI - Extremity Injury (Lower) General Date Seen: 05/27/24 Chief Complaint: Extremity Pain/Injury, Lower Stated Complaint: R leg pain Time Seen by Provider: 05/27/24 11:48 Source: patient Mode of arrival: EMS Limitations: no limitations History of Present Illness HPI Narrative: Patient is an 89-year-old male presenting to the emergency department for right knee pain. He states he he was walking when he missed a step and fell onto his right knee. Denies hip losing consciousness. Does take aspirin but no other blood thinners. Is unable to move his knee due to help tighten it feels but denies any pain at this time. Was unable to walk on his right knee. He does not think he hit his head but was told he did by bystanders. Denies losing consciousness. Denies any lightheadedness or dizziness before or after the fall. He states he otherwise feels well. Related Data Home Medications ?Medication ?Instructions ?Recorded ?Confirmed calcium carbonate (Calcium 600) 600 mg PO DAILY 10/27/21 04/05/23 cholecalciferol (vitamin D3) 25 1,000 unit PO DAILY 10/27/21 05/28/24 mcg (1,000 unit) capsule methimazole 5 mg tablet 2.5 mg PO DAILY 10/27/21 05/28/24 tamsulosin 0.4 mg capsule 0.4 mg PO BID 10/27/21 05/28/24 vit C 250 mg-vit E 90 mg-zinc 40 1 tab PO DAILY 12/17/21 05/28/24 mg-copper 1 [id number] capsule (PreserVision AREDS-2) chlorthalidone 25 mg tablet 12.5 mg PO DAILY 03/24/23 05/28/24 sertraline 25 mg tablet 25 mg PO QAM 05/28/24 05/28/24 Previous Rx's ?Medication ?Instructions ?Recorded aspirin 81 mg chewable tablet 81 mg PO DAILY #90 tabs 03/25/23 (Children's Aspirin) clopidogrel 75 mg tablet 75 mg PO DAILY #30 tabs 03/25/23 simvastatin 20 mg tablet 20 mg PO HS #30 tabs 03/25/23 Allergies Allergy/AdvReac Type Severity Reaction Status Date / Time Fish Containing Products Allergy Unknown Verified 03/26/23 14:19 lisinopril Allergy Unknown Cough Verified 03/26/23 14:19 Sulfa (Sulfonamide Allergy Unknown Verified 03/26/23 14:19 Antibiotics) Review of Systems Narrative: Pertinent systems reviewed and were negative unless stated in HPI PFSH [facility] Medical History (Updated 05/28/24 @ 09:14 by Judah Martinez MD) Mild depression ?F32.A - Depression, unspecified (ICD-10) Hyperthyroidism ?E05.90 - Thyrotoxicosis, unspecified without thyrotoxic crisis or storm (ICD-10) Nephrolithiasis ?N20.0 - Calculus of kidney (ICD-10) History of TIA (transient ischemic attack) ?Z86.73 - Personal history of transient ischemic attack (TIA), and cerebral infarction without residual deficits (ICD-10) BPH (benign prostatic hyperplasia) ?N40.0 - Benign prostatic hyperplasia without lower urinary tract symptoms (ICD-10) Hyperlipidemia ?E78.5 - Hyperlipidemia, unspecified (ICD-10) Rupture of left biceps tendon ?S46.212A - Strain of muscle, fascia and tendon of other parts of biceps, left arm, initial encounter (ICD-10) Osteoarthritis of left shoulder ?M19.012 - Primary osteoarthritis, left shoulder (ICD-10) Rotator cuff tear, left ?M75.102 - Unspecified rotator cuff tear or rupture of left shoulder, not specified as traumatic (ICD-10) Urinary retention due to benign prostatic hyperplasia ?N40.1 - Benign prostatic hyperplasia with lower urinary tract symptoms (ICD- 10) ?R33.8 - Other retention of urine (ICD-10) Sepsis ?A41.9 - Sepsis, unspecified organism (ICD-10) Escherichia coli urinary tract infection ?N39.0 - Urinary tract infection, site not specified (ICD-10) ?B96.20 - Unspecified Escherichia coli [E. coli] as the cause of diseases classified elsewhere (ICD-10) Encounter for counseling regarding advance directives (10/19/16) ?Z71.89 - Other specified counseling (ICD-10) Calculus of urinary bladder ?N21.0 - Calculus in bladder (ICD-10) History of bladder stone ?Z87.448 - Personal history of other diseases of urinary system (ICD-10) Surgical History History of arthroscopy of right shoulder ?Z98.890 - Other specified postprocedural states (ICD-10) History of hernia repair ?Z98.890 - Other specified postprocedural states (ICD-10) ?Z87.19 - Personal history of other diseases of the digestive system (ICD-10) History of arthroscopy of left shoulder (12/25/08) ?Z98.890 - Other specified postprocedural states (ICD-10) Family History Mother Pancreatic cancer Social History What is your current living situation?: I presently have a place to live Problems where you live: no known problems Problems where you live details: none In the past 12 months, utilities in danger of being shut off: no In past 12 months, lack of transportation kept you from medical appts, meetings, work, or getting things needed for daily living: no In the past 12 mos, have been you worried that your food would run out before you had money to buy more?: never true In the past 12 mos, the food you bought just didn't last and you didn't have money to buy more?: never true Highest level of school completed/degree received: Master's degree Smoking Status: Never smoker Do you use any of these nicotine containing products: None Second hand tobacco smoke exposure: No How often do you have a drink containing alcohol: 4 or more times a week Alcohol type: beer and hard liquor How many standard drinks containing alcohol do you have on a typical day: 1 or 2 How often do you have six or more drinks on one occasion: Daily or almost daily AUDIT-C Alcohol total score: 8 Non-prescribed substance use: denies use Caffeine: Yes (1 cup of tea or 1 pop a day) Are you now , , , , never or living with a partner: Social isolation score (0-1 are the most socially isolated patients): 1 How often does anyone, including family, friends and others, physically hurt you : never How often does anyone, including family, friends and others, insult or talk down to you: never How often does anyone, including family, friends and others, threaten you with harm: never How often does anyone, including family, friends and others, scream or curse at you: never service: No Exam Narrative: Exam Narrative: Const: Well-nourished, Well-developed, in no distress Eyes: PERRL, no conjunctival injection, and symmetrical lids HENT: Atraumatic external nose and ears. Moist mucous membranes. Head normal cephalic atraumatic Neck: Symmetric, trachea midline, No thyromegaly. MSK: Notably swollen right knee most parent superior to the patella. Flexion of the knee causes a tightness sensation to his right thigh. Very mild tenderness noted to the patella. No tenderness noted with she lateral or medial pressure to knee Skin: Warm, Dry. No rashes or lesions. Neuro: Normal Muscle tone, No focal neurological deficits. Psych: Awake, Alert, & Oriented x3. Appropriate mood and affect. Const: Vital Signs, click to edit/add: Vital Signs - 24 hr 05/27/24 17:00 05/27/24 19:40 05/27/24 22:48 Temperature 98.0 F 97.9 F 98.1 F Pulse Rate Pulse Rate [Pulse Oximeter] 90 75 82 Pulse Rate [Right Posterior Tibial] Respiratory Rate 18 16 16 Blood Pressure Blood Pressure [Le ft Arm] 141/85 H 118/68 107/78 Pulse Oximetry 93 93 95 Oxygen Delivery Nm thod Room Air Room Air Room Air 05/28/24 03:00 05/28/24 07:00 05/28/24 07:00 Temperature 97.9 F 98.4 F Pulse Rate Pulse Rate [Pulse Oximeter] 65 65 Pulse Rate [Right Posterior Tibial] 70 70 Respiratory Rate 16 16 16 Blood Pressure Blood Pressure [Le ft Arm] 126/68 134/84 Pulse Oximetry 92 [facility] 05/28/24 11:40 05/28/24 11:45 05/28/24 11:50 Temperature 97.7 F Pulse Rate 67 68 69 Pulse Rate [Pulse Oximeter] Pulse Rate [Right Posterior Tibial] Respiratory Rate 16 16 16 Blood Pressure 157/85 H 159/86 H 165/89 H Blood Pressure [Le ft Arm] Pulse Oximetry 95 95 95 [facility] Room [facility] Room Air 05/28/24 11:55 05/28/24 12:00 05/28/24 12:05 Temperature Pulse Rate 66 64 64 Pulse Rate [Pulse Oximeter] Pulse Rate [Right Posterior Tibial] Respiratory Rate 16 16 16 Blood Pressure 158/87 H 170/85 H 167/100 H Blood Pressure [Le ft Arm] Pulse Oximetry 99 99 98 Oxygen Delivery Me thod Room Air Room Air Room Air 05/28/24 12:10 05/28/24 12:15 05/28/24 12:20 Temperature 98.7 F Pulse Rate 66 62 62 Pulse Rate [Pulse Oximeter] Pulse Rate [Right Posterior Tibial] Respiratory Rate 16 16 16 Blood Pressure 152/84 H 166/85 H 163/79 H Blood Pressure [Le ft Arm] Pulse Oximetry 98 95 98 Oxygen Delivery Me thod Room Air Room Air Room Air 05/28/24 12:25 05/28/24 12:58 Temperature 97.6 F Pulse Rate 62 65 Pulse Rate [Pulse Oximeter] Pulse Rate [Right Posterior Tibial] Respiratory Rate 16 16 Blood Pressure 152/78 H 177/88 H Blood Pressure [Le ft Arm] Pulse Oximetry 97 97 Oxygen Delivery Me thod Room Air Room Air Course Vital Signs Vital signs: Initial Vital Signs Temperature 97.5 F L 05/27/24 11:25 Temperature Source Temporal Artery Scan 05/27/24 11:25 Pulse Rate 71 05/27/24 11:25 Pulse Rhythm Regular 05/27/24 11:25 Blood Pressure 177/87 H 05/27/24 11:25 Blood Pressure Mean 117 H 05/27/24 11:25 Pulse Oximetry 96 05/27/24 11:25 Oxygen Delivery Method Room Air 05/27/24 11:25 Vital Signs Temperature 97.5 F L 05/27/24 11:25 Pulse Rate 71 05/27/24 11:25 Blood Pressure 177/87 H 05/27/24 11:25 Pulse Oximetry 96 05/27/24 11:25 Oxygen Delivery Method Room Air 05/27/24 11:25 Temperature 97.6 F 05/28/24 12:58 Pulse Rate 65 05/28/24 12:58 Respiratory Rate 16 05/28/24 12:58 Blood Pressure 177/88 H 05/28/24 12:58 Pulse Oximetry 97 05/28/24 12:58 Oxygen Delivery Method Room Air 05/28/24 12:58 Medications Administered Medications: Generic Name Dose Route Start Last Admin Trade Name Freq PRN Reason Stop Dose Admin Acetaminophen 1,300 mg 05/27/24 20:00 05/28/24 04:25 Acetaminophen 650 Mg Tablet Er PO 1,300 mg Q8H YANG Administration Hydromorphone HCl 0.2 mg 05/28/24 13:11 05/28/24 13:55 Hydromorphone 0.5 Mg/0.5 Ml Inj IVP 0.2 mg Q2H PRN Administration Pain Hydroxyzine Pamoate 25 mg 05/27/24 17:13 05/28/24 14:37 Hydroxyzine Pamoate 25 Mg Capsule PO 25 mg Q4H PRN Administration pain, anxiety Sodium Chloride 1,000 mls @ 75 mls/hr 05/28/24 00:20 05/28/24 12:24 0.9 % Sodium Chloride 1000 Ml IV 75 mls/hr .[id number] YANG Infusion Oxycodone HCl 5 mg 05/27/24 17:13 05/28/24 14:36 Oxycodone 5 Mg Tablet PO 5 mg Q4H PRN Administration Pain Senna/Docusate Sodium 1 tab 05/28/24 14:15 05/28/24 14:36 Sennosides/Docusate Tablet PO 1 tab BID YANG Administration Simvastatin 20 mg 05/27/24 21:00 05/27/24 20:27 Simvastatin 20 Mg Tablet PO Not Given HS YANG Sodium Chloride 5 ml 05/27/24 21:00 05/28/24 14:40 Sodium Chloride 0.9 % (Flush) 10 Ml Syringe IVF Not Given BID YANG Tamsulosin HCl 0.4 mg 05/27/24 21:00 05/27/24 20:25 Tamsulosin Hcl 0.4 Mg Capsule PO 0.4 mg BID YANG Administration Discontinued Medications Generic Name Dose Route Start Last Admin Trade Name Freq PRN Reason Stop Dose Admin Enoxaparin Sodium 40 mg 05/27/24 21:00 05/27/24 20:28 Enoxaparin 40 Mg/0.4 Ml Inj SUBCUT 40 mg HS YANG Administration Fentanyl 50 mcg 05/28/24 11:48 05/28/24 12:15 Fentanyl 100 Mcg/2 Ml Inj IVP 50 mcg Q5M PRN Administration Cefazolin Sodium 2 gm/ Sodium 100 mls @ 200 mls/hr 05/28/24 09:06 05/28/24 10:00 Chloride IVPB 05/28/24 09:07 200 mls/hr ONCE ONE Administration Oxycodone HCl 5 mg 05/27/24 15:12 05/27/24 15:23 Oxycodone 5 Mg Tablet PO 05/27/24 15:13 5 mg ONCE ONE Administration MDM - Extremity Injury (Lower) MDM Narrative Medical decision making narrative: Patient is an 89-year-old male presenting for right knee pain. At rest he has no pain but does have pain with flexion of the knee. This quite a bit of swelling noted to the knee and difficult to palpate. There does not seem to be much pain or swelling to the joint lines. Since he did fall and was told he hit his head will do CT scan of his head, cervical spine and x-ray his right knee. CT scan showed no acute concerning abnormalities as reviewed by myself and the radiologist. Does appear to have quite a bit of chronic narrowing of his C- spine. X-ray returned showing moderate infusion anterior to the knee above the patella and a small joint effusion. I am concerned for prepatellar bursitis. I did do a bedside ultrasound the area under not see any obvious fluid collection to drain. Did give him oxycodone wrapped his knee. Will put on a knee immobilizer. I did speak to Ortho and they reviewed the images. She states based on the images there is some concern for possible quadriceps tendon rupture. He states he does not feel like the knee follows but he wants it to do. With all swelling it is difficult to palpate the tendon and I cannot clearly distinguish of the tendon is intact or not on ultrasound. Lab Data Labs: Lab Results 05/27/24 Range/Units 19:10 WBC 8.80 (4.50-11.00) K/uL RBC 3.92 L (4.30-5.90) m/uL Hgb 12.3 L (13.5-17.5) gm/dL Hct 37.7 (37.0-53.0) % MCV 96 (80-100) fL MCH 31 (26-34) pg MCHC 33 (32-36) gm/dL Plt Count 181 (140-440) K/uL INR 1.07 (0.91-1.10) Sodium 138 (135-149) mmol/L Potassium 3.8 (3.6-5.1) mmol/L Chloride 104 (96-114) mmol/L Carbon Dioxide 23 (20-32) mmol/L Anion Gap 11 (7-15) mEq/L BUN 17 (7-30) mg/dL Creatinine 0.9 (0.5-1.5) mg/dL Estimated Creat Clear 52.72 Estimated GFR 82 ml/min Glucose 157 H (60-115) mg/dL Calcium 8.9 (8.4-10.6) mg/dL Imaging Data CT scan - head: Attestation: I have reviewed the pertinent imaging results. Radiologist's impression: 1. No acute intracranial abnormality. 2. Moderate generalized cerebral volume loss. Please note that all CT scans at this facility use dose modulation, iterative reconstruction, and/or weight-based dosing when appropriate to reduce radiation dose to as low as reasonably achievable. Dictated by Go Tao MD @ 05/27/2024 2:04:[address] scan cervical spine: Attestation: I have reviewed the pertinent imaging results. Radiologist's impression: 1. Normal alignment. No fractures. 2. Cervical spondylosis. 3. No prevertebral soft tissue swelling. 4. At C2-3, mild narrowing of the right neural foramen. 5. At C3-4, mild narrowing of the bilateral neural foramina 6. At C5-6, moderate narrowing of the right neural foramen Please note that all CT scans at this facility use dose modulation, iterative reconstruction, and/or weight-based dosing when appropriate to reduce radiation dose to as low as reasonably achievable. Dictated by Go Tao MD @ 05/27/2024 2:06:37 PM X-ray knee: Attestation: I have reviewed the pertinent imaging results. Radiologist's impression: 1. No acute osseous abnormalities. 2. Moderate soft tissue swelling anteriorly about the knee with small joint effusion Dictated by Brock Jackson MD @ 05/27/2024 2:25:37 PM Discharge Plan Discharge Activity Detail: Wound: ? Maintain dressing until Post Op Day #5, then may remove on your own. ? No soaking wound in water; showering okay; light scrub with your hand and body soap, rinse, dab dry ? Sutures are under the skin, will dissolve; allow surgical glue to come off naturally; do not scrub the wound or apply ointments/lotions ? Call our office with any redness that streaks, excessive drainage from the wound, or wound gapping. Ice/Elevate: ? Ice as needed for swelling and discomfort (active ice, or ice pack); typically 20 minutes on, 20 minutes off, repeat as able. Elevate operative extremity to heart level regularly to minimize swelling/edema. Motion/Exercise: ? Weight bear as tolerated operative extremity ONLY WHEN knee immobilizer is in place (walker/cane for ambulation assistance as needed) ? Per PT/OT. ? Straight leg raises daily: 1-2 sets of 10 reps Pain Medications: ? Acetaminophen 1,000mg 4 times per day. (max 4,000 mg per day) ? Ibuprofen (if able to tolerate this medicine/NSAIDS) 600-800mg every 6-8 hrs as needed(max 2,400mg per day). ? Oral narcotic as prescribed. Wean as tolerated. Blood Clot Prevention (DVT): ? Medication: 81 mg aspirin by mouth twice daily (1 month) Driving: ? Do not drive while taking narcotic pain medication ? Anticipate 4-6 weeks no driving if operative leg is driving leg Smoking/Alcohol: ? Do not smoke; do no drink alcohol especially when taking postoperative oral narcotic medication Seek Care from you Primary Care Provider if you experience the following issues in the postoperative phase and beyond: ? Bacterial infections such as: pneumonia, bacterial skin infection (cellulitis), UTI, high fever, chills unrelated to the operative body part - call your primary care physician urgently for treatment in hopes to protect your health and the metal implant. Referrals: ? PT, OT per patient preference - evaluate & treat total knee arthroplasty prot ocol (gait training, ROM, ADLs) Vaccines: ? No vaccines until 4-6+ weeks postop Follow up: ? PA-C visit in 10-14 days post op ? Ortho surgeon follow-up at 6 weeks post op; repeat radiographs 3 views operative knee at that visit. If there are any acute concerns regarding your surgery, please call our orthopedic clinic ([phone])
[2024-05-27 14:00] VITALS: BP 154/103; PULSE 64; RESP 18; O2SAT 98
[2024-05-27] MEDS: OXYCODONE 5 MG TABLET PO ×2 (15:23→21:32)
--- NOTE | 2024-05-27 16:55 | PM.IMHP1 ---
Hospitalist- H&P: HPI History of Present Illness Date Seen: 05/27/24 Chief complaint: R leg pain Narrative: ADMISSION HISTORY AND PHYSICAL - HOSPITALIST Chief Complaint: A fall after a missed step, right knee contusion, inability to ambulate, elderly HPI: 89-year-old Herb presented to the ED after a fall at class he was attending. He said he was coming down three steps and missed the last one, coming down on his right knee. no LOC. He said he was embarrassed and felt fine other than the right knee. No previous surgery to the right knee. ER COURSE: xrays (negative) and case discussed with ortho PA. MR deemed necessary; not available. Attempted to ambulate with knee immobilizer and this was not possible given overall frailty and pain. CODE STATUS: FULL CODE EMERGENCY CONTACT PLAN: Ree Scales Rel To Pat Cell I've updated the [facility], medications and allergies in the Expanse tabs. INVESTIGATIONS: LABS/MICRO/ECG/IMAGING REVIEW OF SYSTEMS: 12-point ROS completed with patient and negative unless otherwise stated in HPI or below. PHYSICAL EXAM: CONSTITUTIONAL: Conversive, good historian. A/O. Knows setting and context. GENERAL: Well-developed and above ideal body weight, in no respiratory distress. VITAL SIGNS: see record. HEENT: Sclerae are anicteric. No petechiae. CARDIAC: rhythm is regular. There is no S3 or rub. No harsh murmurs. Extremities show trace edema with symmetrical pulses. PULM: good air entry with no wheeze. MSK: right knee: Significant suprapatellar effusion; developing ecchymosis. +gap palpated above the patella. He can not straight leg raise or fully extend at the knee. NEURO: Speech is fluent. A brief neurologic exam is negative. PSYCHIATRIC: Euthymic. ADMIT TO MEDSURG: FLOOR CARE DVT: Lovenox GI: PO intake Time spent: Today I spent 75 minutes seeing the patient, discussing the patient with ER staff, reviewing Expanse and EPIC notes/diagnostics, discussing the care plan with our care time that includes social work, PT/OT, pharmacy, RT, mcfp and documenting my impressions and plan in the medical record. [facility] Medical History (Updated 05/27/24 @ 18:22 by Vianca Garcia MD) Mild depression ?F32.A - Depression, unspecified (ICD-10) Hyperthyroidism ?E05.90 - Thyrotoxicosis, unspecified without thyrotoxic crisis or storm (ICD-10) Nephrolithiasis ?N20.0 - Calculus of kidney (ICD-10) History of TIA (transient ischemic attack) ?Z86.73 - Personal history of transient ischemic attack (TIA), and cerebral infarction without residual deficits (ICD-10) BPH (benign prostatic hyperplasia) ?N40.0 - Benign prostatic hyperplasia without lower urinary tract symptoms (ICD-10) Hyperlipidemia ?E78.5 - Hyperlipidemia, unspecified (ICD-10) Rupture of left biceps tendon ?S46.212A - Strain of muscle, fascia and tendon of other parts of biceps, left arm, initial encounter (ICD-10) Osteoarthritis of left shoulder ?M19.012 - Primary osteoarthritis, left shoulder (ICD-10) Rotator cuff tear, left ?M75.102 - Unspecified rotator cuff tear or rupture of left shoulder, not specified as traumatic (ICD-10) Urinary retention due to benign prostatic hyperplasia ?N40.1 - Benign prostatic hyperplasia with lower urinary tract symptoms (ICD-10) ?R33.8 - Other retention of urine (ICD-10) Sepsis ?A41.9 - Sepsis, unspecified organism (ICD-10) Escherichia coli urinary tract infection ?N39.0 - Urinary tract infection, site not specified (ICD-10) ?B96.20 - Unspecified Escherichia coli [E. coli] as the cause of diseases classified elsewhere (ICD-10) Encounter for counseling regarding advance directives (10/19/16) ?Z71.89 - Other specified counseling (ICD-10) Calculus of urinary bladder ?N21.0 - Calculus in bladder (ICD-10) History of bladder stone ?Z87.448 - Personal history of other diseases of urinary system (ICD-10) Surgical History History of arthroscopy of right shoulder ?Z98.890 - Other specified postprocedural states (ICD-10) History of hernia repair ?Z98.890 - Other specified postprocedural states (ICD-10) ?Z87.19 - Personal history of other diseases of the digestive system (ICD-10) History of arthroscopy of left shoulder (12/25/08) ?Z98.890 - Other specified postprocedural states (ICD-10) Family History Mother Pancreatic cancer Social History What is your current living situation?: I presently have a place to live Problems where you live: no known problems Problems where you live details: None In the past 12 months, utilities in danger of being shut off: no In past 12 months, lack of transportation kept you from medical appts, meetings, work, or getting things needed for daily living: no In the past 12 mos, have been you worried that your food would run out before you had money to buy more?: never true In the past 12 mos, the food you bought just didn't last and you didn't have money to buy more?: never true Highest level of school completed/degree received: Master's degree Smoking Status: Never smoker Do you use any of these nicotine containing products: None Second hand tobacco smoke exposure: No How often do you have a drink containing alcohol: 4 or more times a week Alcohol type: beer and wine How many standard drinks containing alcohol do you have on a typical day: 1 or 2 How often do you have six or more drinks on one occasion: Never AUDIT-C Alcohol total score: 4 Non-prescribed substance use: denies use Caffeine: Yes (1 cup of tea or 1 pop a day) Are you now , , , , never or living with a partner: Social isolation score (0-1 are the most socially isolated patients): 1 How often does anyone, including family, friends and others, physically hurt you: never How often does anyone, including family, friends and others, insult or talk down to you: never How often does anyone, including family, friends and others, threaten you with harm: never How often does anyone, including family, friends and others, scream or curse at you: never service: No Meds Home Medications and Allergies Home Medications ?Medication ?Instructions ?Recorded ?Confirmed ?Type calcium carbonate (Calcium 600) 600 mg PO DAILY 10/27/21 04/05/23 History cholecalciferol (vitamin D3) 25 1,000 unit PO DAILY 10/27/21 04/05/23 History mcg (1,000 unit) capsule methimazole 5 mg tablet 2.5 mg PO DAILY 10/27/21 04/05/23 History multivitamin (Multiple Vitamins 1 tab PO DAILY 10/27/21 04/05/23 History tablet) tamsulosin 0.4 mg capsule 0.4 mg PO BID 10/27/21 04/05/23 History vit C 250 mg-vit E 90 mg-zinc 40 1 tab PO DAILY 12/17/21 04/05/23 History mg-copper 1 [id number] capsule (PreserVision AREDS-2) chlorthalidone 25 mg tablet 12.5 mg PO DAILY 03/24/23 04/05/23 History sertraline 50 mg tablet 25 mg PO DAILY 03/24/23 04/05/23 History sildenafil 100 mg tablet 100 mg PO DAILY PRN 03/24/23 03/25/23 History Allergies Allergy/AdvReac Type Severity Reaction Status Date / Time Fish Containing Products Allergy Unknown Verified 03/26/23 14:19 lisinopril Allergy Unknown Cough Verified 03/26/23 14:19 Sulfa (Sulfonamide Allergy Unknown Verified 03/26/23 14:19 Antibiotics) Exam Const: Vital Signs, click to edit/add: Vital Signs - 24 hr 05/27/24 11:25 05/27/24 11:33 05/27/24 14:00 Temperature 97.5 F L Pulse Rate [Apical ] 71 64 Pulse Rate [Right Dorsalis Pedis] 70 Pulse Rate [Right Posterior Tibial] 70 Respiratory Rate 18 Blood Pressure [Ri ght Upper Arm] 177/87 H 154/103 H Pulse Oximetry 96 98 Oxygen Delivery Me thod Room Air Room Air Assessment and Plan Assessment and plan (1) Accidental fall on or from stairs or steps: Problem comment: -suspect right quad rupture given clinical exam -admitted for inability to ambulate and can not assist Status: Acute (2) Knee contusion: Problem comment: -suspect quad tendon rupture; will need MRI/CT or u/s. Pt has a hx of welding and eye injury and he reports he can't have MRIs. -pain management and work with therapy to get him up and moving. Status: Acute (3) Nephrolithiasis: Problem comment: -previously on chlorthalidone for prevention -no recent issues Status: Acute (4) History of TIA (transient ischemic attack): Problem comment: admitted here in 04/14; plavix x 6mo (no longer on), aspirin for life Status: Acute (5) BPH (benign prostatic hyperplasia): Problem comment: tamsulosin 0.4mg BID Status: Acute (6) Mild depression: Problem comment: on zoloft daily, 25mg Status: Acute (7) Hyperlipidemia: Problem comment: zocor 20mg daily Status: Acute (8) Hyperthyroidism: Problem comment: - on methimazole 2.5 mg once daily Status: Acute
[2024-05-27 17:00] VITALS: BP 141/85; PULSE 90; RESP 18; TEMP 36.7; O2SAT 93
[2024-05-27 19:18] LABS: Hematocrit 37.7 % (37.0-53.0); Hemoglobin* 12.3 gm/dL (13.5-17.5); Mean Corpuscular HGB Conc 33 gm/dL (32-36); Mean Corpuscular Hemoglobin 31 pg (26-34); Mean Corpuscular Volume 96 fL (80-100); Platelet Count* 181 K/uL (140-440); Red Blood Count 3.92 m/uL (4.30-5.90)
--- NOTE | 2024-05-27 19:25 | PC.NURSE ---
Arrived to the floor and admission was completed, R leg in MICHELLE and Leg immobilizer. Urinal given to the patient for voiding in bed. Eating dinner in bed, call light within reach. Pain was reported @ 1/10 upon arrival to the floor. Chen SIMONS BSN
[2024-05-27 19:32] LABS: Slide Review Reflex No
[2024-05-27 19:36] LABS: Chloride* 104 mmol/L (96-114); Sodium* 138 mmol/L (135-149)
[2024-05-27 19:37] LABS: Potassium* 3.8 mmol/L (3.6-5.1)
[2024-05-27 19:40] VITALS: BP 118/68; PULSE 75; RESP 16; TEMP 36.6; O2SAT 93
[2024-05-27 19:40] LABS: Anion Gap 11 mEq/L (7-15); Blood Urea Nitrogen* 17 mg/dL (7-30); Calcium* 8.9 mg/dL (8.4-10.6); Carbon Dioxide* 23 mmol/L (20-32); Creatinine* 0.9 mg/dL (0.5-1.5); Est. Creatinine Clearance* 52.72; Estimated Glomerular Filt Rate 82 ml/min; Glucose* 157 mg/dL (60-115)
[2024-05-27 19:45] LABS: INR 1.07 (0.91-1.10)
[2024-05-27] MEDS: ACETAMINOPHEN 650 MG TABLET ER 1300 MG PO (20:25)
[2024-05-27] MEDS: TAMSULOSIN HCL 0.4 MG CAPSULE PO (20:25)
[2024-05-27] MEDS: SODIUM CHLORIDE 0.9 % (FLUSH) 10 ML SYRINGE 5 ML IVF (20:26)
[2024-05-27] MEDS: ENOXAPARIN 40 MG/0.4 ML INJ SUBCUT (20:28)
[2024-05-27 22:48] VITALS: BP 107/78; PULSE 82; RESP 16; TEMP 36.7; O2SAT 95
[2024-05-27] MEDS: hydrOXYzine pamoate 25 MG CAPSULE PO (23:50)
[2024-05-28] VITALS (22 sets, daily range): BP systolic 124–177; BP diastolic 64–100; PULSE 62–85; RESP 16–18; TEMP 36.4–37.1; O2SAT 90–99
[2024-05-28] MEDS: 0.9 % SODIUM CHLORIDE 1000 ml 1,000 ML 75 ML IV ×2 (00:31→11:10)
[2024-05-28] MEDS: ACETAMINOPHEN 650 MG TABLET ER 1300 MG PO ×2 (04:25→20:13)
--- NOTE | 2024-05-28 07:02 | PC.NURSE ---
End of shift [id number]: A&O pleasant and cooperative. VSS. Afebrile. Pt reports 3-6/10 pain in quad and knee. See eMAR for intervention. Bedrest overnight. Using urinal. Right leg MICHELLE wrapped with immobilizer on. Intermittent ice to leg. Using call light appropriately
--- NOTE | 2024-05-28 09:07 | PM.ORCN ---
History of Present Illness HPI Date Seen: 05/28/24 Consult date: 05/27/24 Chief complaint: R leg pain Narrative: Fab is a pleasant 89-year-old male. He provides the history today. He reports that he was at the [employer] trying to renew his license. While there, he is not sure exactly what happened. Believes he may have stumbled or slipped and something happened to his right knee. He found that his right leg was ?folded in a strange way?. He noted he was unable to bear weight after this. He presented [place] ED. X-rays were obtained. They revealed no clear fracture, but patella ball and a large effusion was noted. Orthopedics was consulted accordingly. Given his history and the inability for him to do an active straight leg raise, it was concerning for a distal quad tendon rupture. History is notable for TIA for which he was on clopidogrel and aspirin time 6 months and aspirin for life thereafter. [facility] Medical History (Updated 05/28/24 @ 09:14 by Judah Martinez MD) Mild depression ?F32.A - Depression, unspecified (ICD-10) Hyperthyroidism ?E05.90 - Thyrotoxicosis, unspecified without thyrotoxic crisis or storm (ICD-10) Nephrolithiasis ?N20.0 - Calculus of kidney (ICD-10) History of TIA (transient ischemic attack) ?Z86.73 - Personal history of transient ischemic attack (TIA), and cerebral infarction without residual deficits (ICD-10) BPH (benign prostatic hyperplasia) ?N40.0 - Benign prostatic hyperplasia without lower urinary tract symptoms (ICD-10) Hyperlipidemia ?E78.5 - Hyperlipidemia, unspecified (ICD-10) Rupture of left biceps tendon ?S46.212A - Strain of muscle, fascia and tendon of other parts of biceps, left arm, initial encounter (ICD-10) Osteoarthritis of left shoulder ?M19.012 - Primary osteoarthritis, left shoulder (ICD-10) Rotator cuff tear, left ?M75.102 - Unspecified rotator cuff tear or rupture of left shoulder, not specified as traumatic (ICD-10) Urinary retention due to benign prostatic hyperplasia ?N40.1 - Benign prostatic hyperplasia with lower urinary tract symptoms (ICD-10) ?R33.8 - Other retention of urine (ICD-10) Sepsis ?A41.9 - Sepsis, unspecified organism (ICD-10) Escherichia coli urinary tract infection ?N39.0 - Urinary tract infection, site not specified (ICD-10) ?B96.20 - Unspecified Escherichia coli [E. coli] as the cause of diseases classified elsewhere (ICD-10) Encounter for counseling regarding advance directives (10/19/16) ?Z71.89 - Other specified counseling (ICD-10) Calculus of urinary bladder ?N21.0 - Calculus in bladder (ICD-10) History of bladder stone ?Z87.448 - Personal history of other diseases of urinary system (ICD-10) Surgical History History of arthroscopy of right shoulder ?Z98.890 - Other specified postprocedural states (ICD-10) History of hernia repair ?Z98.890 - Other specified postprocedural states (ICD-10) ?Z87.19 - Personal history of other diseases of the digestive system (ICD-10) History of arthroscopy of left shoulder (12/25/08) ?Z98.890 - Other specified postprocedural states (ICD-10) Family History Mother Pancreatic cancer Social History What is your current living situation?: I presently have a place to live Problems where you live: no known problems Problems where you live details: none In the past 12 months, utilities in danger of being shut off: no In past 12 months, lack of transportation kept you from medical appts, meetings, work, or getting things needed for daily living: no In the past 12 mos, have been you worried that your food would run out before you had money to buy more?: never true In the past 12 mos, the food you bought just didn't last and you didn't have money to buy more?: never true Highest level of school completed/degree received: Master's degree Smoking Status: Never smoker Do you use any of these nicotine containing products: None Second hand tobacco smoke exposure: No How often do you have a drink containing alcohol: 4 or more times a week Alcohol type: beer and hard liquor How many standard drinks containing alcohol do you have on a typical day: 1 or 2 How often do you have six or more drinks on one occasion: Daily or almost daily AUDIT-C Alcohol total score: 8 Non-prescribed substance use: denies use Caffeine: Yes (1 cup of tea or 1 pop a day) Are you now , , , , never or living with a partner: Social isolation score (0-1 are the most socially isolated patients): 1 How often does anyone, including family, friends and others, physically hurt you: never How often does anyone, including family, friends and others, insult or talk down to you: never How often does anyone, including family, friends and others, threaten you with harm: never How often does anyone, including family, friends and others, scream or curse at you: never service: No Meds Home Medications and Allergies Home Medications ?Medication ?Instructions ?Recorded ?Confirmed ?Type calcium carbonate (Calcium 600) 600 mg PO DAILY 10/27/21 04/05/23 History cholecalciferol (vitamin D3) 25 1,000 unit PO DAILY 10/27/21 04/05/23 History mcg (1,000 unit) capsule methimazole 5 mg tablet 2.5 mg PO DAILY 10/27/21 04/05/23 History multivitamin (Multiple Vitamins 1 tab PO DAILY 10/27/21 04/05/23 History tablet) tamsulosin 0.4 mg capsule 0.4 mg PO BID 10/27/21 04/05/23 History vit C 250 mg-vit E 90 mg-zinc 40 1 tab PO DAILY 12/17/21 04/05/23 History mg-copper 1 [id number] capsule (PreserVision AREDS-2) chlorthalidone 25 mg tablet 12.5 mg PO DAILY 03/24/23 04/05/23 History sertraline 50 mg tablet 25 mg PO DAILY 03/24/23 04/05/23 History sildenafil 100 mg tablet 100 mg PO DAILY PRN 03/24/23 03/25/23 History Allergies Allergy/AdvReac Type Severity Reaction Status Date / Time Fish Containing Products Allergy Unknown Verified 03/26/23 14:19 lisinopril Allergy Unknown Cough Verified 03/26/23 14:19 Sulfa (Sulfonamide Allergy Unknown Verified 03/26/23 14:19 Antibiotics) Ortho Exam Narrative Exam Narrative: He is alert and oriented x3. He is lucid. Cooperative with the exam. He is in no acute distress. Nonlabored breathing. Right lower extremity exam shows large effusion about the right knee suspected to be a heme arthrosis. There is a palpable gap just proximal to the patella itself midline anteriorly. Unable to do an active straight leg raise. Tender palpation in this distal quad region. Neurologic intact distally in the superficial and deep peroneal as well as plantar distribution to sensory light touch and motor function. Palpable DP and PT pulse. Strength testing around the knee deferred. Const Vital Signs, click to edit/add: Vital Signs - 24 hr 05/27/24 11:25 05/27/24 11:33 05/27/24 14:00 Temperature 97.5 F L Pulse Rate [Apical] 71 64 Pulse Rate [Pulse Oximeter] Pulse Rate [Right Dorsalis Pedis] 70 Pulse Rate [Right Posterior Tibial] 70 Respiratory Rate 18 Blood Pressure [Left Arm] Blood Pressure [Right Upper Arm] 177/87 H 154/103 H Pulse Oximetry 96 98 Oxygen Delivery Method Room Air Room Air 05/27/24 17:00 05/27/24 19:40 05/27/24 22:48 Temperature 98.0 F 97.9 F 98.1 F Pulse Rate [Apical] Pulse Rate [Pulse Oximeter] 90 75 82 Pulse Rate [Right Dorsalis Pedis] Pulse Rate [Right Posterior Tibial] Respiratory Rate 18 16 16 Blood Pressure [Left Arm] 141/85 H 118/68 107/78 Blood Pressure [Right Upper Arm] Pulse Oximetry 93 93 95 Oxygen Delivery Method Room Air Room Air Room Air 05/28/24 03:00 Temperature 97.9 F Pulse Rate [Apical] Pulse Rate [Pulse Oximeter] 65 Pulse Rate [Right Dorsalis Pedis] Pulse Rate [Right Posterior Tibial] Respiratory Rate 16 Blood Pressure [Left Arm] 126/68 Blood Pressure [Right Upper Arm] Pulse Oximetry 92 Oxygen Delivery Method Room Air Results Labs Labs: Laboratory Results - last 48 hr 05/27/24 19:10 WBC 8.80 RBC 3.92 L Hgb 12.3 L Hct 37.7 MCV 96 MCH 31 MCHC 33 Plt Count 181 INR 1.07 Sodium 138 Potassium 3.8 Chloride 104 Carbon Dioxide 23 Anion Gap 11 BUN 17 Creatinine 0.9 Estimated Creat Clear 52.72 Estimated GFR 82 Glucose 157 H Calcium 8.9 Diagnostic results Additional Comments: 3 radiographic views right knee from [facility] from 05/27/2024 were ordered by different provider and reviewed by me. This demonstrates large effusion in the knee with a small component of prepatellar swelling. Patella baja noted with [place] ratio of 0.73 No clear acute fractures or avulsions otherwise noted. These are nonweightbearing films, but there is some narrowing in the medial and patellofemoral compartments along with small tricompartmental osteophytosis. Finally, Arteriosclerosis of the femoral, popliteal, and tibial/peroneal arteries noted Assessment and Plan Assessment and plan (1) Accidental fall on or from stairs or steps: Problem comment: -suspect right quad rupture given clinical exam -admitted for inability to ambulate and can not assist Status: Acute Total time spent: Total time spent is greater than 50% in coordination of care (as documented) at patient's floor/unit and/or counseling patient: (2) Knee contusion: Problem comment: -suspect quad tendon rupture; will need MRI/CT or u/s. Pt has a hx of welding and eye injury and he reports he can't have MRIs. -pain management and work with therapy to get him up and moving. Status: Acute Total time spent: Total time spent is greater than 50% in coordination of care (as documented) at patient's floor/unit and/or counseling patient: (3) Nephrolithiasis: Problem comment: -previously on chlorthalidone for prevention -no recent issues Status: Acute Total time spent: Total time spent is greater than 50% in coordination of care (as documented) at patient's floor/unit and/or counseling patient: (4) History of TIA (transient ischemic attack): Problem comment: admitted here in 04/14; plavix x 6mo (no longer on), aspirin for life Status: Acute Total time spent: Total time spent is greater than 50% in coordination of care (as documented) at patient's floor/unit and/or counseling patient: (5) BPH (benign prostatic hyperplasia): Problem comment: tamsulosin 0.4mg BID Status: Acute Total time spent: Total time spent is greater than 50% in coordination of care (as documented) at patient's floor/unit and/or counseling patient: (6) Mild depression: Problem comment: on zoloft daily, 25mg Status: Acute Total time spent: Total time spent is greater than 50% in coordination of care (as documented) at patient's floor/unit and/or counseling patient: (7) Hyperlipidemia: Problem comment: zocor 20mg daily Status: Acute Total time spent: Total time spent is greater than 50% in coordination of care (as documented) at patient's floor/unit and/or counseling patient: (8) Hyperthyroidism: Problem comment: - on methimazole 2.5 mg once daily Status: Acute Total time spent: Total time spent is greater than 50% in coordination of care (as documented) at patient's floor/unit and/or counseling patient: (9) Quadriceps tendon rupture: Status: Acute Plan At this time, the patient is unable to perform an active straight leg raise on this right lower extremity. This, in conjunction with the radiographic findings of patella baja, large hemarthrosis, and his inability to ambulate/stand, are all consistent with a right distal quadriceps tendon rupture that is acute. Given the significant clinical dysfunction, I do think surgery is indicated. This would be for an open right distal quadriceps tendon repair. We plan to do this today. The patient remains NPO. We have called the surgical team. Beyond that, I have talked with the patient at length about the various risks of surgery including local risks (e.g. Infection, wound healing issues, tendon re tearing or failure to heal) and systemic risks (e.g. NM, VTE, stroke). I also talked through the postoperative timing and expectations. So long as he is wearing the knee immobilizer snugged on tight, I do think ambulation/weight-bearing as tolerated is reasonable. He may benefit from a walker for ambulation assistance. I do think it is likely going to be reasonable for him to be able to go home today. If, medically he is not fit to be discharged or physically he is not mobilizing safely, then staying longer may be necessary. Oral analgesics as needed. Physical therapy referral for evaluation and treatment will be prudent today. This is of an communicated with the patient and his . I also spoke with the anesthesia team to coordinate care for him for surgery today. Finally, I have spoken with the hospitalist (Dr. Ozuna) to communicate the anticipated plan and coordinate care as well.
[2024-05-28] MEDS: CEFAZOLIN 2 GM in 0.9 % SODIUM CHLORIDE Mini-bag 100 ML IVPB ×3 (10:00→23:17)
--- NOTE | 2024-05-28 11:07 | PM.ORPRC ---
Procedure Note Date of procedure: 05/28/24 Procedure: PREOPERATIVE DIAGNOSIS: 1. Right distal quadriceps tendon rupture, closed, acute POSTOPERATIVE DIAGNOSIS: 1. Right distal quadriceps tendon rupture, closed, acute PROCEDURE: 1. Right distal quadriceps tendon open repair 2. 09023 - intraoperative fluoroscopy up to 1 hour. SURGEON: Judah Martinez MD. SALESPERSON FLORIST SUPPLIES: Angella Diaz PA-C - Of note, an field technical assistant was critical for this case to aid in patient positioning, tissue retraction, limb manipulation/positioning, and closure. ANESTHESIA: Spinal anesthetic IMPLANTS: Arthrex 1.5 mm labral tape (x2) TOURNIQUET: 50 min at 300 torr COMPLICATIONS: None evident INDICATIONS: The patient is a pleasant 89-year-old male who experienced an eccentric load to the right quadriceps muscle group. This resulted in severe pain and inability to bear weaight. Workup including history and physical exam was concerning for quadriceps rupture. Surgery was recommended to restore the function of the right lower extremity. FINDINGS: The quad tendon had been completely avulsed from its insertion. Additionally, the retinaculum was split both medially and laterally to the midaxial line DESCRIPTION OF PROCEDURE: Following a thorough discussion of risks, benefits, and alternatives consent was obtained and the right knee was marked. The patient was brought to the operating room and placed supine on the operating table. Induction of anesthesia was undertaken. 2 g IV Ancef was administered within 1 hr of incision preoperatively. Proper time-out was performed identifying proper patient, site, procedure. The operative extremity was prepped and draped in the appropriate sterile fashion using ChloraPrep after the patient was positioned supine with all bony prominences well padded. A longitudinal, anterior, midline skin incision was made starting approximately 3cm proximal to the superior pole of the patella and advanced distal just beyond the inferior pole of the patella. A hematoma/hemarthrosis was immediately encountered and evacuated from the wound. The margins of the rupture were assessed and debrided of unhealthy tissue. Likewise, the proximal pole of the patella was debrided with a rongeur for the planned reapproximation site. Attention was turned to the quadriceps tendon. 1.5 mm suture tape was utilized in a running locking [place] technique. A second suture was placed in the same fashion leaving a total of 4 tails exiting the distal quadriceps tendon stump. 3 separate beath pins were then drilled from proximal to distal through the patella localizing their position with c-arm fluoroscopic imaging in both the AP and lateral planes. After confirming the pins to be intraosseous and parallel, small longitudinal slits were made in the patellar tendon on the beath pin down to bone to ensure no tissue interposition during the tying of the sutures. The suture tails were loaded in the pins and brought distally through the patella. One limb of each tail was brought deep to the tendon. With tension on the sutures, the knee was flexed to take any creep out of the sutures., which were then tied. A #1 Stratafix PDS suture was then utilized to reapproximate the retinacular disruption in a running technique. The knee was again placed through a range of motion and the repair remained stable. A thorough irrigation was performed with normal saline. Closure was then performed with 2-0 Vicryl and 4-0 Monocryl for subcutaneous and subcuticular layers, resepectively. Dressings were applied and the patient was awoken from anesthesia after the tourniquet deflated and transferred the PACU in stable condition. PLAN: 1. Weight bear as tolerated operative extremity with the brace locked in extension. 2. Ice. 3. Twice a day aspirin 4. Analgesics PRN (e.g. acetominophen, ibuprofen, oxycodone). 5. F/U PA visit in 10-14 days for wound check then follow-up with me at the 6 week lenny. Anticipate knee immobilizer most of the time, except showering, x4 weeks. Initiate physical therapy at the 2 week lenny postop for quad activation +/- E stem. Then decreasing use until 6 weeks. Anticipate being able to remove the knee immobilizer at the 6 week lenny depending on patient's motion/function.
--- NOTE | 2024-05-28 11:58 | W.ANESCHARGE ---
Anesthesia Charges Start Date/Time Anesthesia Start Date: 05/28/24 Anesthesia Start Time: 09:47 Stop Date/Time Anesthesia Stop Date: 05/28/24 Anesthesia Stop Time: 11:40 Summary Emergency: HEALTH INSURANCE SALES AGENT Coding CPT Codes CPT Codes: ANESTH KNEE AREA SURGERY - 85789 ([id number]) P2 - PATIENT W/MILD SYST DISEASE, QZ - HEALTH INSURANCE SALES AGENT SVC W/O CUTTING MACHINE TENDER HELPER BY Additional Codes: Summary - Emergency: HEALTH INSURANCE SALES AGENT ([id number])
[2024-05-28] MEDS: fentaNYL 100 MCG/2 ML inj 50 MCG IVP ×2 (12:05→12:15)
[2024-05-28] MEDS: HYDROmorphone 0.5 mg/0.5 ml inj 0.2 MG IVP (13:55)
[2024-05-28] MEDS: SENNOSIDES/DOCUSATE TABLET 1 TAB PO ×2 (14:36→20:13)
[2024-05-28] MEDS: OXYCODONE 5 MG TABLET PO (14:36)
[2024-05-28] MEDS: hydrOXYzine pamoate 25 MG CAPSULE PO ×2 (14:37→19:25)
--- NOTE | 2024-05-28 15:43 | PM.IMPN1 ---
Progress Note: A&P Assessment and plan (1) Quadriceps tendon rupture: Problem details: -surgical repair done morning of 05/28/2024. Dr. Solis -VTE prophylaxis will be aspirin 81 mg b.i.d. for 30 days Status: Acute (2) Accidental fall on or from stairs or steps: Problem details: -quad tendon rupture -mechanical fall, witnessed Status: Acute Subjective Date Seen: 05/28/24 Interval history: Daily Progress Note - Hospital Medicine Day #: 2 Day of Surgery, 05/28/24 PROCEDURE: Right distal quadriceps tendon open repair SURGEON: Judah Martinez MD. ANESTHESIA: Spinal anesthetic COMPLICATIONS: None evident CC: acute right knee injury - quadriceps tendon rupture 24 HOUR UPDATE: Repaired this morning; no complications. PT/OT have seen him and he is very hesitant to take steps and pain control has been an issue. Hypertensive but otherwise a little groggy; able to make jokes and ask questions. Notable Labs, Micro, Rads, Interventions: labs drawn at admission reviewed; not updated today. Objective: a little groggy Vitals: hypertensive but otherwise stable see above Lungs: Clear. Cardiac: S1S2. RLE: lukasz wrap and immobilizer in place; NVI to foot. Disposition/Potential discharge - In the am Today I spent 50minutes seeing the patient, reviewing Expanse and EPIC notes/diagnostics, discussing the care plan with our care time that includes social work, PT/OT, pharmacy, RT, senior care and documenting my impressions and plan in the medical record. Exam Const: Vital Signs, click to edit/add: Vital Signs - 24 hr 05/27/24 17:00 05/27/24 19:40 05/27/24 22:48 Temperature 98.0 F 97.9 F 98.1 F Pulse Rate Pulse Rate [Pulse Oximeter] 90 75 82 Pulse Rate [Right Posterior Tibial] Respiratory Rate 18 16 16 Blood Pressure Blood Pressure [Le ft Arm] 141/85 H 118/68 107/78 Pulse Oximetry 93 93 95 Oxygen Delivery Me thod Room Air Room Air Room Air 05/28/24 03:00 05/28/24 07:00 05/28/24 07:00 Temperature 97.9 F 98.4 F Pulse Rate Pulse Rate [Pulse Oximeter] 65 65 Pulse Rate [Right Posterior Tibial] 70 70 Respiratory Rate 16 16 16 Blood Pressure Blood Pressure [Le ft Arm] 126/68 134/84 Pulse Oximetry 92 97 Oxygen Delivery Me thod Room Air Room Air 05/28/24 11:40 05/28/24 11:45 05/28/24 11:50 Temperature 97.7 F Pulse Rate 67 68 69 Pulse Rate [Pulse Oximeter] Pulse Rate [Right Posterior Tibial] Respiratory Rate 16 16 16 Blood Pressure 157/85 H 159/86 H 165/89 H Blood Pressure [Le ft Arm] Pulse Oximetry 95 95 95 Oxygen Delivery Me thod Room Air Room Air Room Air 05/28/24 11:55 05/28/24 12:00 05/28/24 12:05 Temperature Pulse Rate 66 64 64 Pulse Rate [Pulse Oximeter] Pulse Rate [Right Posterior Tibial] Respiratory Rate 16 16 16 Blood Pressure 158/87 H 170/85 H 167/100 H Blood Pressure [Le ft Arm] Pulse Oximetry 99 99 98 Oxygen Delivery Ne thod Room Air Room Air Room Air 05/28/24 12:10 05/28/24 12:15 05/28/24 12:20 Temperature 98.7 F Pulse Rate 66 62 62 Pulse Rate [Pulse Oximeter] Pulse Rate [Right Posterior Tibial] Respiratory Rate 16 16 16 Blood Pressure 152/84 H 166/85 H 163/79 H Blood Pressure [Le ft Arm] Pulse Oximetry 98 95 98 Oxygen Delivery Ne thod Room Air Room Air Room Air 05/28/24 12:25 05/28/24 12:58 Temperature 97.6 F Pulse Rate 62 65 Pulse Rate [Pulse Oximeter] Pulse Rate [Right Posterior Tibial] Respiratory Rate 16 16 Blood Pressure 152/78 H 177/88 H Blood Pressure [Le ft Arm] Pulse Oximetry 97 97 Oxygen Delivery Ne thod Room Air Room Air Labs Labs: Laboratory Results - last 24 hr 05/27/24 19:10 WBC 8.80 RBC 3.92 L Hgb 12.3 L Hct 37.7 MCV 96 MCH 31 MCHC 33 Plt Count 181 INR 1.07 Sodium 138 Potassium 3.8 Chloride 104 Carbon Dioxide 23 Anion Gap 11 BUN 17 Creatinine 0.9 Estimated Creat Clear 52.72 Estimated GFR 82 Glucose 157 H Calcium 8.9
[2024-05-28] MEDS: SERTRALINE 50 MG TABLET 25 MG PO (16:38)
[2024-05-28] MEDS: TAMSULOSIN HCL 0.4 MG CAPSULE PO ×2 (16:38→20:13)
[2024-05-28] MEDS: methIMAzole 5 MG TABLET 2.5 MG PO (16:44)
--- NOTE | 2024-05-28 17:23 | PM.DS1 ---
DS: Providers Provider Date Seen: 05/28/24 Primary care physician: Dave Romero MD Consults: 05/27/24 17:13 Consult to Occupational Therapy [CONS] Routine Comment: Reason(s) for OT Consult:: Evaluate and Treat Any Restrictions?:: No Restrictions Consult to Physical Therapy [CONS] Routine Comment: Reason(s) for PT Consult:: Evaluate and Treat Any Restrictions?:: No Restrictions Consult to Exceptional Student Education Teacher [CONS] Routine Comment: Reason for Consult:: Social Service Consult 05/28/24 13:11 Consult to Physical Therapy [CONS] Routine Comment: Reason(s) for PT Consult:: Evaluate and Treat Any Restrictions?:: Wt Bearing as Tolerated Comment: IF knee immobilizer is snuggly in place. Walker for ambulation assistance PRN. Attending Physician on discharge: Vianca Garcia MD [facility] Date of Discharge: 05/28/24 DS: Diagnosis Discharge Diagnosis (1) Quadriceps tendon rupture: Status: Acute Problem details: -surgical repair done morning of 05/28/2024. Dr. Solis -VTE prophylaxis will be aspirin 81 mg b.i.d. for 30 days (2) Accidental fall on or from stairs or steps: Status: Acute Problem details: -quad tendon rupture -mechanical fall, witnessed (3) History of TIA (transient ischemic attack): Status: Acute Problem details: admitted here in 04/14; plavix x 6mo (no longer on), aspirin for life DS: Summary Hospital Course Hospital Course: FINAL DIAGNOSIS/FOLLOW UP ISSUES: 1. Right Quad Tendon Rupture; s/p fall with DOI 05/27/24, DOS 05/28/24. VTE Prophylaxis aspirin 81mg BID 2. Will need outpatient physical therapy BRIEF HOSPITAL COURSE: Patient was admitted for 2 days. Synopsis of acute inpatient issues are outlined above. Chronic medical conditions with notable findings outlined above. Fab fell on 05/27 causing his right quad tendon to rupture. His fall was witnessed and was mechanical. He never had LOC. His initial xrays were negative for fracture but subtle findings and clinical exam indicated the quad ruptured. Orthopedics elected to surgically repair given the disability he was experiencing. Surgery was uncomplicated and he was discharged the morning after surgery, 05/29/24. DISCHARGE MEDICATIONS: See Reconciled list - SIGNIFICANT CHANGES: aspirin 81mg BID oxy 2.5 to 5mg as needed Tylenol extended release Specific instructions to the patient and follow-up are outlined below. REVIEW OF SYSTEMS No new chest pain or dyspnea Pain controlled No voiding difficulties Tolerating diet challenge PHYSICAL EXAM: CONSTITUTIONAL: Conversive, good historian. A/O. Knows setting and context. GENERAL: Well-developed and above ideal body weight, in no respiratory distress. VITAL SIGNS: see record. HEENT: Sclerae are anicteric. No petechiae. CARDIAC: rhythm is regular. There is no S3 or rub. No harsh murmurs. Extremities show trace edema with symmetrical pulses. PULM: good air entry with no wheeze. NEURO: Speech is fluent. A brief neurologic exam is negative. MSK: right leg is wrapped postoperatively and locked in extension with knee immobilzer SKIN: No rashes, petechiae, concerning changes PSYCHIATRIC: Euthymic. DISPOSITION: Home with . outpatient PT Time spent on discharge 37 minutes. Status at Discharge Functional status at discharge: uses cane/walker Overall status at discharge: patient is progressing back to baseline Time Spent with Patient Time attestation: Total time spent providing and/or coordinating discharge services: Time spent: Greater than 30 minutes Exam Const: Vital Signs, click to edit/add: Vital Signs - 24 hr 05/27/24 17:00 05/27/24 19:40 05/27/24 22:48 Temperature 98.0 F 97.9 F 98.1 F Pulse Rate Pulse Rate [Pulse Oximeter] 90 75 82 Pulse Rate [Right Posterior Tibial] Respiratory Rate 18 16 16 Blood Pressure Blood Pressure [Le ft Arm] 141/85 H 118/68 107/78 Pulse Oximetry 93 93 95 Oxygen Delivery Va thod Room Air Room Air Room Air 05/28/24 03:00 05/28/24 07:00 05/28/24 07:00 Temperature 97.9 F 98.4 F Pulse Rate Pulse Rate [Pulse Oximeter] 65 65 Pulse Rate [Right Posterior Tibial] 70 70 Respiratory Rate 16 16 16 Blood Pressure Blood Pressure [Le ft Arm] 126/68 134/84 Pulse Oximetry 92 97 [facility] 05/28/24 11:40 05/28/24 11:45 05/28/24 11:50 Temperature 97.7 F Pulse Rate 67 68 69 Pulse Rate [Pulse Oximeter] Pulse Rate [Right Posterior Tibial] Respiratory Rate 16 16 16 Blood Pressure 157/85 H 159/86 H 165/89 H Blood Pressure [Le ft Arm] Pulse Oximetry 95 95 95 Oxygen Delivery Me thod Room Air Room Air Room Air 05/28/24 11:55 05/28/24 12:00 05/28/24 12:05 Temperature Pulse Rate 66 64 64 Pulse Rate [Pulse Oximeter] Pulse Rate [Right Posterior Tibial] Respiratory Rate 16 16 16 Blood Pressure 158/87 H 170/85 H 167/100 H Blood Pressure [Le ft Arm] Pulse Oximetry 99 99 98 Oxygen Delivery Me thod Room Air Room Air Room Air 05/28/24 12:10 05/28/24 12:15 05/28/24 12:20 Temperature 98.7 F Pulse Rate 66 62 62 Pulse Rate [Pulse Oximeter] Pulse Rate [Right Posterior Tibial] Respiratory Rate 16 16 16 Blood Pressure 152/84 H 166/85 H 163/79 H Blood Pressure [Le ft Arm] Pulse Oximetry 98 95 98 Oxygen Delivery Va thod Room Air Room Air Room Air 05/28/24 12:25 05/28/24 12:58 Temperature 97.6 F Pulse Rate 62 65 Pulse Rate [Pulse Oximeter] Pulse Rate [Right Posterior Tibial] Respiratory Rate 16 16 Blood Pressure 152/78 H 177/88 H Blood Pressure [Le ft Arm] Pulse Oximetry 97 97 Oxygen Delivery Me thod Room Air Room Air DS: Data Data Completed and Pending Labs on day of discharge: Labs from last 24 hours 05/27/24 19:10 WBC 8.80 RBC 3.92 L Hgb 12.3 L Hct 37.7 MCV 96 MCH 31 MCHC 33 Plt Count 181 INR 1.07 Sodium 138 Potassium 3.8 Chloride 104 Carbon Dioxide 23 Anion Gap 11 BUN 17 Creatinine 0.9 Estimated Creat Clear 52.72 Estimated GFR 82 Glucose 157 H Calcium 8.9 Discharge Plan Discharge Disposition: Home w/ Parent or Adult Discharging Surgeon: Judah Martinez Follow-Up Appointment: Orthopedic PA visit in 10-14 days post op; call for appt. Prescriptions: New acetaminophen 650 mg Tablet Extended Release 1,300 mg PO Q8H Qty: 90 0RF aspirin [Children's Aspirin] 81 mg Tablet,Chewable 81 mg PO BID Qty: 60 0RF oxycodone 5 mg Tablet 5 mg PO Q4H PRN (Reason: Pain) Qty: 30 0RF Continued cholecalciferol (vitamin D3) 25 mcg (1,000 unit) capsule 1,000 unit PO DAILY calcium carbonate [Calcium 600] 600 mg calcium (1,500 mg) tablet 600 mg PO DAILY methimazole 5 mg tablet 2.5 mg PO DAILY tamsulosin 0.4 mg capsule 0.4 mg PO BID PreserVision AREDS-2 250-90-40-1 mg capsule 1 tab PO DAILY clopidogrel 75 mg Tablet 75 mg PO DAILY Qty: 30 0RF simvastatin 20 mg Tablet 20 mg PO HS Qty: 30 0RF sertraline 25 mg tablet 25 mg PO QAM Held aspirin [Children's Aspirin] 81 mg Tablet,Chewable 81 mg PO DAILY Qty: 90 0RF Hold Instructions: Resume on 06/28/24. take twice a day for a month, then back to once a day Discontinued chlorthalidone 25 mg tablet 12.5 mg PO DAILY Activity Detail: Wound: ? Maintain dressing until Post Op Day #5, then may remove on your own. ? No soaking wound in water; showering okay; light scrub with your hand and body soap, rinse, dab dry ? Sutures are under the skin, will dissolve; allow surgical glue to come off naturally; do not scrub the wound or apply ointments/lotions ? Call our office with any redness that streaks, excessive drainage from the wound, or wound gapping. Ice/Elevate: ? Ice as needed for swelling and discomfort (active ice, or ice pack); typically 20 minutes on, 20 minutes off, repeat as able. Elevate operative extremity to heart level regularly to minimize swelling/edema. Motion/Exercise: ? Weight bear as tolerated operative extremity ONLY WHEN knee immobilizer is in place (walker/cane for ambulation assistance as needed) ? Per PT/OT. ? Straight leg raises daily: 1-2 sets of 10 reps Pain Medications: ? Acetaminophen 1,000mg 4 times per day. (max 4,000 mg per day) ? Ibuprofen (if able to tolerate this medicine/NSAIDS) 600-800mg every 6-8 hrs as needed(max 2,400mg per day). ? Oral narcotic as prescribed. Wean as tolerated. Blood Clot Prevention (DVT): ? Medication: 81 mg aspirin by mouth twice daily (1 month) Driving: ? Do not drive while taking narcotic pain medication ? Anticipate 4-6 weeks no driving if operative leg is driving leg Smoking/Alcohol: ? Do not smoke; do no drink alcohol especially when taking postoperative oral narcotic medication Seek Care from you Primary Care Provider if you experience the following issues in the postoperative phase and beyond: ? Bacterial infections such as: pneumonia, bacterial skin infection (cellulitis), UTI, high fever, chills unrelated to the operative body part - call your primary care physician urgently for treatment in hopes to protect your health and the metal implant. Referrals: ? PT, OT per patient preference - evaluate & treat total knee arthroplasty protocol (gait training, ROM, ADLs) Vaccines: ? No vaccines until 4-6+ weeks postop Follow up: ? PA-C visit in 10-14 days post op ? Ortho surgeon follow-up at 6 weeks post op; repeat radiographs 3 views operative knee at that visit. If there are any acute concerns regarding your surgery, please call our orthopedic clinic ([phone]) Discharge Diet: Regular Patient Instructions: Crutch Instructions (DC) Additional Instructions: I would recommend taking your blood pressure 2-3x a week over the next month and write them down. Your goal is less than 140/90. You have high blood pressure here and you may need to restart the Chlorthalidone again. Follow-up: [facility] [Outside] (alfa this week) Dave Romero MD [Primary Care Provider] - (1 month) Discharge Orders: Discharge Order (Routine); Ordered 05/29/24 Ordered By: Vianca Garcia Consulting provider completed their portion of the discharge: Yes
[2024-05-28] MEDS: SODIUM CHLORIDE 0.9 % (FLUSH) 10 ML SYRINGE 5 ML IVF (20:14)
[2024-05-28] MEDS: ENOXAPARIN 40 MG/0.4 ML INJ SUBCUT (20:14)
[2024-05-28] MEDS: SIMVASTATIN 20 MG TABLET PO (20:14)
[2024-05-29 03:33] VITALS: BP 135/76; PULSE 81; RESP 18; TEMP 36.7; O2SAT 90
[2024-05-29] MEDS: ACETAMINOPHEN 650 MG TABLET ER 1300 MG PO ×2 (03:35→12:54)
[2024-05-29] MEDS: hydrOXYzine pamoate 25 MG CAPSULE PO (05:18)
--- NOTE | 2024-05-29 06:26 | PC.NURSE ---
End of shift [id number]: A&O pleasant and cooperative. VSS. Afebrile. Reporting pain in upper knee 2-05/29. See eMAR for interventions. MICHELLE wrap c/d/i. Immobilizer on RLE. +cms. Up w/ A1 walker and GB. Tolerates well. Denies n/v. Tolerating diet. Using call light appropriately.
[2024-05-29 07:00] VITALS: RESP 18; O2SAT 93
[2024-05-29 07:55] VITALS: BP 143/79; PULSE 77; RESP 18; TEMP 36.6; O2SAT 93
[2024-05-29 08:00] VITALS: PULSE 77; RESP 18
--- NOTE | 2024-05-29 08:42 | PM.ORPN ---
Subjective Subjective Time Seen by Provider: 08:20 Date Seen: 05/29/24 Principal diagnosis: Day 1 s/p right distal quad tendon open repair Interval history: Minh is doing well and resting comfortably in his bed. He ranks his right knee as a 3 out of 10 and is well controlled with acetaminophen and oxycodone PRN. Denies numbness/tingling distally. Patient joked throughout our visit and also asked detailed Ortho related questions. No acute concerns. Ortho Exam Narrative Exam Narrative: Patient is alert and oriented x3. No acute distress. Converses with nonlabored breathing. Right lower extremity exam: Knee immobilizer and lukasz wrap left in place. CMS intact with 2+ DP and PT pulses. [place], warm digits with brisk capillary refill. Sensation confirmed distally. Const Vital Signs, click to edit/add: Vital Signs - 24 hr 05/28/24 11:40 05/28/24 11:45 05/28/24 11:50 Temperature 97.7 F Pulse Rate 67 68 69 Pulse Rate [Pulse Oximeter] Pulse Rate [Right Posterior Tibial] Respiratory Rate 16 16 16 Blood Pressure 157/85 H 159/86 H 165/89 H Blood Pressure [Left Arm] Blood Pressure [Right Arm] Pulse Oximetry 95 95 95 Oxygen Delivery Method Room Air Room Air Room Air 05/28/24 11:55 05/28/24 12:00 05/28/24 12:05 Temperature Pulse Rate 66 64 64 Pulse Rate [Pulse Oximeter] Pulse Rate [Right Posterior Tibial] Respiratory Rate 16 16 16 Blood Pressure 158/87 H 170/85 H 167/100 H Blood Pressure [Left Arm] Blood Pressure [Right Arm] Pulse Oximetry 99 99 98 Oxygen Delivery Method Room Air Room Air Room Air 05/28/24 12:10 05/28/24 12:15 05/28/24 12:20 Temperature 98.7 F Pulse Rate 66 62 62 Pulse Rate [Pulse Oximeter] Pulse Rate [Right Posterior Tibial] Respiratory Rate 16 16 16 Blood Pressure 152/84 H 166/85 H 163/79 H Blood Pressure [Left Arm] Blood Pressure [Right Arm] Pulse Oximetry 98 95 98 Oxygen Delivery Method Room Air Room Air Room Air 05/28/24 12:25 05/28/24 12:45 05/28/24 12:58 Temperature 97.6 F Pulse Rate 62 65 65 Pulse Rate [Pulse Oximeter] Pulse Rate [Right Posterior Tibial] Respiratory Rate 16 16 16 Blood Pressure 152/78 H 170/96 H 177/88 H Blood Pressure [Left Arm] Blood Pressure [Right Arm] Pulse Oximetry 97 96 97 Oxygen Delivery Method Room Air Room Air Room Air 05/28/24 12:58 05/28/24 13:15 05/28/24 14:00 Temperature 97.6 F 98.1 F 98.1 F Pulse Rate 65 65 62 Pulse Rate [Pulse Oximeter] Pulse Rate [Right Posterior Tibial] Respiratory Rate 18 16 16 Blood Pressure 177/88 H 135/79 138/74 Blood Pressure [Left Arm] Blood Pressure [Right Arm] Pulse Oximetry 90 92 92 Oxygen Delivery Method Room Air Room Air 05/28/24 15:00 05/28/24 15:00 05/28/24 15:00 Temperature Pulse Rate 65 Pulse Rate [Pulse Oximeter] Pulse Rate [Right Posterior Tibial] 70 Respiratory Rate 16 16 16 Blood Pressure 138/72 Blood Pressure [Left Arm] Blood Pressure [Right Arm] Pulse Oximetry 96 92 Oxygen Delivery Method Room Air Room Air 05/28/24 17:00 05/28/24 19:19 05/28/24 19:22 Temperature 98.1 F Pulse Rate 65 68 Pulse Rate [Pulse Oximeter] 82 Pulse Rate [Right Posterior Tibial] Respiratory Rate 16 16 16 Blood Pressure 128/78 144/90 H Blood Pressure [Left Arm] Blood Pressure [Right Arm] 126/64 Pulse Oximetry 92 92 92 Oxygen Delivery Method Room Air Room Air Room Air 05/28/24 23:13 05/28/24 23:14 05/29/24 03:33 Temperature 98.3 F 98.0 F Pulse Rate Pulse Rate [Pulse Oximeter] 85 81 Pulse Rate [Right Posterior Tibial] Respiratory Rate 18 18 18 Blood Pressure Blood Pressure [Left Arm] 135/76 Blood Pressure [Right Arm] 124/66 Pulse Oximetry 91 91 90 Oxygen Delivery Method Room Air Room Air Room Air Assessment and Plan Assessment and plan (1) Quadriceps tendon rupture: Problem details: Day 1 s/p right distal quad tendon open repair (DOS: 05/28/2024, Dr. Solis). Status: Acute Assessment and Plan: - May WBAT with knee immobilizer in place. May remove knee immobilizer to shower. Patioent will wear knee immobilizer x 6 weeks. - VTE prophylaxis will be aspirin 81 mg b.i.d. for 30 days - For pain management, recommend rest, ice, elevation and acetaminophen, ibuprofen or oxycodone PRN. - F/U PA visit in 10-14 days for wound check. - Outpatient physical therapy at the 2 week lenny postop for quad activation +/- E stem. Then decreasing use until 6 weeks.
[2024-05-29] MEDS: OXYCODONE 5 MG TABLET PO ×2 (08:48→12:54)
[2024-05-29] MEDS: SENNOSIDES/DOCUSATE TABLET 1 TAB PO (09:25)
[2024-05-29] MEDS: SERTRALINE 50 MG TABLET 25 MG PO (09:25)
[2024-05-29] MEDS: TAMSULOSIN HCL 0.4 MG CAPSULE PO (09:26)
[2024-05-29] MEDS: SODIUM CHLORIDE 0.9 % (FLUSH) 10 ML SYRINGE 5 ML IVF (09:26)
[2024-05-29] MEDS: methIMAzole 5 MG TABLET 2.5 MG PO (09:55)
--- NOTE | 2024-05-29 15:06 | PC.NURSE ---
Discharge: Patient pleasant and cooperative, A&O. VSS, afebrile. MICHELLE wrap C/D/I. Patient reports pain to his right knee this shift, managed with PRN medication, see MAR. IV removed with tip intact. Discharge instructions provided, all questions answered. Discharged to home via wheelchair with .
== END 2024-05-29 13:57 | disposition home or self-care (01) ==
LOC: ED 12:40 → MEDSURG 05-28 09:18 → SS 05-28 09:21 → MEDSURG 05-28 09:22
PROVIDERS: Family Medicine; Emergency Provider Student in an Organized Health Care Education/Training Program; PCP Family Medicine; Visit Provider Orthopaedic Surgery Sports Medicine
PROC: (CPT 27385; principal; 2024-05-28 09:45)
DX: S76.111A Strain of right quadriceps muscle, fascia and tendon, initial encounter (principal); G89.18 Other acute postprocedural pain; S09.90XA Unspecified injury of head, initial encounter; W10.9XXA Fall (on) (from) unspecified stairs and steps, initial encounter; Z86.73 Personal history of transient ischemic attack (TIA), and cerebral infarction without residual deficits; N40.1 Benign prostatic hyperplasia with lower urinary tract symptoms; R33.8 Other retention of urine; Z79.82 Long term (current) use of aspirin; I10 Essential (primary) hypertension; N20.0 Calculus of kidney; E05.90 Thyrotoxicosis, unspecified without thyrotoxic crisis or storm; F32.A Depression, unspecified; E78.5 Hyperlipidemia, unspecified
CPT/HCPCS: 27385; 01320; 36415; 70450; 72125; 73560; 73562; 80048; 85027; 85610; 93005; 97116; 97161; 97165; 97530; 97535; 99140; 99284; 99285; A9270; G0378; J0690; J1171; J1650; J2704; J3010; J3490; J7030

== ENCOUNTER 2024-09-13 10:45 | Outpatient (RCR) | payer MEDICARE, BC, SELFPAY ==
--- NOTE | 2024-06-13 13:34 | PT.OPE ---
PT [facility] Out[facility] Eval PT [facility] Outpatient Eval Start: 06/13/24 13:09 Freq: Status: Active Protocol: Document 06/13/24 13:10 ROSAURA (Rec: 06/13/24 13:31 ROSAUAR [id number]) E-signed By Charles Galvez, PT, ATC Physical Therapy Outpatient Evaluation Insurance Information Insurance Name Medicare B,[employer] Medical Diagnosis Z98.890 other specified postprocedural states s/p R distal quad tendon open repair 05/28/24 Treating Diagnosis R knee pain R knee ROM and strength restrictions R quad atrophy Mobility compensation Referring MD Solis Subjective Preferred Name Fab Subjective Fab reports falling 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 He had not had any problems with either balance or leg strength prior to this event and no PMHx of injury to the involved knee. He believes his surgery went well and pain average is 2/10 without the need for pain medication. Stiffness, leg spasms and compensated movement patterns requiring assistance at time from his are his chief complaints at this time. The KI is in place during all waking and sleeping hours yet he's encouraged that it can be removed for periods during the day moving forward. Also unable to drive independently, shower or be on his feet for extended durations. Date of Last Physician Visit 05/30/24 Current Work Status Retired Precautions Weight Bearing Status Weight Bear as Tolerated Therapy Limitations/Systems Review Not Limited Objective Range of Motion PROM: R 5-18 degrees, L 3-135 degrees flexion Strength Quad set R 1/5, L 5-/5 Unable to lift R leg independently. No open chain R knee strength tests performed at this time. L leg strength 5/5 for EXT and FLEX Swelling Mild generalized around patella and incision Posture Vertical incision exists centrally over R patella and into distal quad on the R leg. Sensation/Reflexes Normal sensation throughout all of R LE. Other/Pertinent Objective Atrophy apparent in R quad- thigh. Assessment Assessment/Impression Fab is a very pleasant and physically fit 89 year old man . He seems to be advancing normally following his distal quadriceps tendon repair on 05/28/24. He was observed walking into the clinic using a walker with the R knee secured within a knee immobilizer brace. Required max assist x 1 to lift the leg up onto the table today. Quad set was trace or 1/10 in the involved leg. Disuse atrophy is clearly present and advancing at this time in the R thigh. Because of this ability to recruit the quad contraction minimally as well as normal sensation in the LE, nerve presence appears intact and not traumatized from the surgery. R quadricep facilitation is of utmost importance at this time in order to accomplish independent R straight leg raising and security in stance and gait. Skilled PT is recommended to advance ROM, strength, gait and transitional mobility. NMES should be incorporated and a necessity to facilitate return of correct and efficient quad firing. Primary Functional Limitations Toileting Transfers to/from all chairs and bed. Driving Self dressing Stairs Plan of Care Rehabilitation Potential Good Physical Therapy Goals 1.Improve R quad setting ability to a minimum of 4/5 via the use of NMES to allow an independent R SLR with minimal to zero quad lag. 2.To ambulate x 1,000 feet without assistive device or knee brace allowing him ease with entrance into house and to community appointments. 3.Bilateral squat to 90 degrees lessening current compensation with transfers and vulnerability to injury from falls-loss of balance. 4.Able to balance on R leg x 10 eyes open Coordination/Communication With Referral Source Treatment Plan/Direct Interventions Electrical Stimulation,Joint Mobilization,Manual Therapy, Neuromuscular Re-ed,Self-Care/ Home Management,Therapeutic Activities,Therapeutic Exercises Frequency/Duration 1-2x per week 12-16 weeks Patient Will Be Discharged From Therapy Independent w/HEP, Independently Progressing Evaluation Billing Untimed Code Treatment Minutes 30 PT Eval No Charge No Complexity Low Certification Information Provider Signature Required Yes Provider Signature Shows Agreement With POC & Medical Necessity Physician NPI Number Write NPI# Here Physician Comment/Change : Physician Signature & Date Requested Please Sign/Date Here
== END 2024-10-31 13:11 | disposition home or self-care (01) ==
PROVIDERS: PCP Family Medicine; Visit Provider Orthopaedic Surgery Sports Medicine
DX: Z48.89 Encounter for other specified surgical aftercare (principal); M25.561 Pain in right knee; Z51.89 Encounter for other specified aftercare
CPT/HCPCS: 97032; 97110; 97116; 97140; 97161

== ENCOUNTER 2024-09-19 14:37 | Emergency (ER) | payer MEDICARE, BC, SELFPAY ==
[2024-09-19 14:45] VITALS: BP 95/61; PULSE 79; RESP 20; TEMP 36.8; O2SAT 93; BMI 28.7
--- NOTE | 2024-09-19 15:04 | CRLHL7_ITS ---
For Patients: As a result of the Century Cures Act, medical imaging exams and procedure reports are released immediately into your electronic medical record. You may view this report before your referring provider. If you have questions, please contact your health care provider. INDICATION: Trauma. TECHNIQUE: Volumetric helical scanning of the chest, abdomen and pelvis was performed with 95 cc of Isovue 370 contrast material IV. Coronal and sagittal reconstructions were obtained. COMPARISON: Today`s left rib x-rays FINDINGS: CHEST: No pneumothorax, hemothorax or pulmonary contusion is evident. A small amount of soft tissue air is noted in the superolateral anterior left chest. An acute near-anatomically aligned fracture of the posterior left 9th rib is demonstrated as well as acute displaced fractures of the posterior left 10th and 11th ribs. No mediastinal hematoma is apparent. 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 Dependent atelectasis is present in both lung bases. No significant airway abnormality or pleural effusion is noted. There is no mediastinal or hilar adenopathy. A large substernal right thyroid nodule is demonstrated. The heart is normal in size. Calcified coronary arterial plaque is demonstrated. ABDOMEN/PELVIS: No free intraperitoneal blood is demonstrated. The liver, spleen, adrenal glands, kidneys and pancreas are intact. No lumbar spinal or pelvic fracture is evident. The biliary system is unremarkable. Multiple renal parenchymal cysts are present bilaterally. Several small bladder stones are present. 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 No lymphadenopathy is evident. The bowel is unremarkable. The prostate is markedly enlarged. IMPRESSION: 1. Acute near-anatomically aligned fracture of the posterior left 9th rib as well as acute displaced fractures of the posterior left 10th and 11th ribs. 2. Small amount of soft tissue air in the superolateral anterior left chest. No pneumothorax. 3. Multiple chronic findings, as above. Please note that all CT scans at this facility use dose modulation, iterative reconstruction, and/or weight-based dosing when appropriate to reduce radiation dose to as low as reasonably achievable. Dictated by Thang Bryson MD @ 09/19/2024 5:06:38 PM (Electronically Signed)
--- OUTSIDE RECORDS SUMMARY | 2024-09-19 15:12 | XMS_ITS | Clinical Summary ---
Author Organization [employer] Address [address] [place] [address] Care Team Providers Care Top Edge Beveler Name Role Phone Dave Romero MD Primary Care Provider [phone] Katherine Smith Unavailable [phone] Estelle Sanchez DO Unavailable [phone] Adrian Peterson MD Unavailable Yissel Gibson RN Unavailable Allergies Active Allergy Reactions Criticality Noted Date Comments [place]-3 Fatty Acids Other - Describe In Comment Field 04/15/2011 Causes pain in the back Lisinopril Cough 06/02/2011 Shellfish Containing Products Other - Describe In Comment Field 03/21/2012 Anything that lives in the water. Kidney, liver, spleen inflammation Sulfa (Sulfonamide Antibiotics) 04/29/2006 Medications Labette 500 mg Tab Take 1 Tab by mouth once daily. 0 12/17/19 10 Active CALCIUM CARBONATE (CALCIUM 500 ORAL) Take 1,000 mg by mouth once daily. Active lactobac cmb #7-tgd-mgxsogmrag (PROBIOTIC & ACIDOPHILUS) 300-250 million cell-mg cap Take by mouth. 0 02/13/20 14 Active Vit C-Vit V-Ytpnxc-Awp-OM-3 (OCUVITE 150 MG-30 UNIT-5 MG-150 MG CAPSULE) 029-05-9-150 ds-zfzm-rn-mg capsule Take by mouth. 0 04/27/19 17 Active multivitamin (MVI) tabletIndications: Health care maintenance Take 1 Tablet by mouth once daily. 90 Tablet 3 05/29/19 21 Active aspirin enteric coated (ECOTRIN) 325 mg tablet Take 325 mg by mouth once daily with a meal. Active COQ10, UBIQUINOL, ORAL Take by mouth. Activ e ascorbic acid, vitamin C, (Vitamin C) 500 mg tablet Take 500 mg by mouth once daily. Active cholecalciferol (Vitamin D) 1,000 unit tablet Take 1,000 units by mouth once daily. Active tamsulosin 0.4 mg capsuleIndications :Benign prostatic hyperplasia with lower urinary tract symptoms, symptom details unspecified One capsule twice daily. 180 Capsule 4 03/28/19 25 Active Additional Information Patient taking differently: 0.4 mg Oral DAILY AFTER MEAL, One capsule twice daily., Informant: Patient's Recall, Family, Reported on 09/15/2024 simvastatin (ZOCOR) 20 mg tabletIndications: Hyperlipidemia with target LDL less than 130 Take 1 Tablet (20 mg) by mouth at bedtime. 90 Tablet 4 03/28/19 25 Active sertraline (ZOLOFT) 25 mg tabletIndications: Situational depression Take 1 Tablet (25 mg) by mouth once daily in the morning. 90 Tablet 3 03/28/19 25 Active methIMAzole 5 mg tabletIndications: Subclinical hyperthyroidism TAKE 1/2 TABLET (2.5 MG) BY MOUTH ONCE DAILY. 45 Tablet 08/16/19 25 Active acetaminophen 500 mg tabletIndications: Malignant melanoma, unspecified site (HC) Take 2 Tablets (1,000 mg) by mouth every 6 hours if needed for Pain. Max acetaminophen dose: 4000mg in 24 hrs. 09/19/19 25 Active aspirin 81 mg tablet Take 81 mg by mouth once daily with a meal. Start this one week prior to surgery and stop ASA 325 mg 025 Disconti nued(*Pa pawan states no longer taking) Active Problems Problem Noted Date Diagnosed Date Melanoma 08/01/2024 Cancer Staging:Clinical stage from 08/10/2024:Stage IB(cT1b, cN0, cM0) - Signed by Adrian Peterson MD on 08/10/2024 Overview (08/01/2024): 07/25/2024 LEFT LATERAL UPPER ARM, Malignant melanoma Maximum depth of invasion: 1.0 mm Ulceration: Present Margins: Negative, but less than 1 mm in the plane of section examined Needs excision 08/04/2024 LEFT POSTERIOR SHOULDER, Malignant melanoma Maximum depth of invasion: 0.5 mm Ulceration: Not identified Margins: Peripheral: Positive (for in situ component); Deep: Negative Needs excision Arterial hypotension 05/25/2023 TIA (transient ischemic attack) 04/01/2023 Overview (04/01/2023): He is to stay on aspirin 325 mg daily indefinitely. Depression, recurrent 03/12/2023 Subclinical hyperthyroidism 03/02/2022 Elevated coronary artery calcium score Bladder stones 03/31/2018 Vitamin D deficiency 02/12/2014 TOMAS 06/13/2012 AHI- 9 06/19/2012 Sensorineural hearing loss, asymmetrical 012 HTN, goal below 140/90 04/08/2011 Hydrocele, unspecified 02/23/2011 BPH (benign prostatic hyperplasia) 04/29/2006 Hyperlipidemia LDL goal < 130 04/29/2006 Resolved Problems Problem Noted Date Diagnosed Date Resolved Date DNR (do not resuscitate) 01/2018 Encounters Date Type Department Care Team Description 09/19/[address] [place] [address] Adrian Peterson MD Pain 09/18/2024 12:50 PM CDT Anesthesia Event [address] [address] Tai Messer CRNA Koenig, Lisa Fredkove, MD 09/18/2024 12:17 PM CDT - 09/18/2024 1:49 PM CDT Surgery [address] [address] Adrian Peterson MD wide local excision of left upper arm melanoma, sentinel lymph node biopsy wide local excision of left posterior shoulder melanoma SENT NODE AT 0800 09/18/2024 9:18 AM CDT - 09/18/2024 5:00 PM CDT Hospital Encounter [address] [place] [address] Adrian Peterson MD Malignant melanoma, unspecified site (HC) (Primary Dx); 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) Discharge Disposition: Home Self Care 09/18/2024 Travel 09/15/2024 Travel 09/14/2024 Telephone [facility] [address] [place] [phone] Adrian Peterson MD Concerns; Surgery Scheduled 09/13/2024 Telephone [facility] [address] [place] [phone] Adrian Peterson MD 09/12/2024 Telephone [facility] [address] [place] [phone] Adrian Peterson MD Questions 08/29/2024 10:50 AM CDT Office Visit [facility] [address] [place] [address] Dave Romero MD Preoperative Exam ( Removing melanoma 09/14) 08/28/2024 Travel 08/18/2024 Telephone [facility] [address] [place] [phone] Catrina Melvin CMA Surgery Scheduled 08/17/2024 Telephone [facility] [address] [place] [phone] Adrian Peterson MD Follow Up 08/12/2024 Refill [facility] [address] [place] [address] Minh Vásquez MD Refill Request (Methimazole) 08/10/2024 3:40 PM CDT Office Visit [facility] [address] [place] [phone] Adrian Peterson MD Consult 08/10/2024 Travel 08/09/2024 Telephone [facility] [address] [place] [address] NgoziCatrina J, FABRICATOR ARTIFICIAL BREAST 08/07/2024 Telephone [facility] [address] [place] [phone] NgoziCatrina J, FABRICATOR ARTIFICIAL BREAST 08/06/2024 Travel 08/01/2024 Telephone [facility] [address] [place] [phone] Yissel Gibson, KRISTYN new referral 08/01/2024 Telephone [facility] [address] [place] [phone] [facility] Cancer Referral (Malignant melanoma, unspecified site) 08/01/2024 Orders Only [facility] [address] [address] Estelle Sanchez, <No scans attached> 07/25/2024 11:15 AM CDT Office Visit [facility] [address] [facility] [address] [place] [address] Estelle Sanchez DO Derm Problem 07/24/2024 Travel 07/19/2024 9:40 AM CDT Office Visit [facility] [address] [place] [address] Dave Romero MD Follow Up (Blood pressure follow up/Also had a recent surgery with orthopedics as well - RIGHT knee) 07/18/2024 Travel from Last 3 Months Immunizations Immunization Administration Dates Next Due AMB INFLUENZA IIV3 (AGE 65+ YRS) PF (Flu Clinic Only) 01/12/2019,12/09/2016 AMB Influenza, IIV3 (Age >=3 years)(Flu Clinic Only) 12/28/2012,01/07/2011,01/17/2008 Amb Influenza, Inact (High-d ose) (Flu Clinic Only) 01/07/2016,12/13/2013 COVID-19 vaccine ([facility] 30mcg/0.3mL) 12YO+ BIVALENT PF, MDV 01/19/2022 COVID-19 vaccine ([facility] [employer] 30mcg/0.3mL) 12YO+ KRISTINA-SUCROSE PF, MDV 07/14/2021 COVID-19 vaccine ([facility] [employer] 30mcg/0.3mL) PF, MDV 01/06/2021,06/05/2020,05/14/2020 Influenza A (H1N1), Inactivated 04/03/2009 Influenza A (H1N1), Inactiva claudio (Age >=3 Years) 04/03/2009 Influenza, High-dose Inactivated 024,01/07/2016,12/07/2014,12/13 Influenza, IIV3 (Age 6-35 mos) 01/07/2011,2009 Influenza, IIV3 (Age >=3 years) 12/29/19 13,12/23/2011,12/16/2009,12/17,01/17/2008,01/31/2007,01/27/2006 ,01/28/2005,01/02/2004,01/17/2003,01/20 Influenza, Inactivated AIIV4 (Age 65+ Years) Preserv Free 12/09/2022,12/31/2021,01/13/2021,12/28 Influenza, Inactivated IIV3 (Age 65+ Years) Preserv Free 12/08/2017,12/09/2016 Pneumococcal Poly,23-Valent (Pneumovax) 05/05/2004 Pneumococcal conj 13-Valent (Prevnar 13) 07/17/2014 RSV, Recombinant ADJ Reconst ituted (Arexvy 120MCG/0.5mL) 02/23/2024 Td (Age >=7 Years) 05/05/2004 Tdap 06/25/2022,01/15/2012 Typhoid (injectable) 10/15/1994 Zoster (Shingrix-RZV, recombinant) 11/04/2018,,06/12/2018 Zoster (Zostavax-ZVL, live) 02/27/2010 Family History Medical History Relation Name Comments Asthma Father of an Asth ma attack at age 60 Heart Disease Father Hypertension Father Cancer-pancreatic Mother at 59 COPD Sister 1 Liv of COPD at Cancer Sister 2 Chaparrita of Bladder cancer met to liver at 80 Cancer-breast No Family History Cancer-colon No Family History Cancer-ovarian No Family History Cancer-prostate No Family History Relation Name Status Comments Daughter hattie Alive Father (Age 60) heart prob s and asthma Mother (Age 59) pancreatic cancer Other carole Alive Sister 1 Liv Sister 2 Chaparrita Sister 3 Becca Alive Son 1 felix Alive Son 2 milton Alive Social History Tobacco Use Types Packs/Day Years Used Date Smoking Tobacco: Never Passive Smoke Exposure: Never Smokeless Tobacco: Never Tobacco Cessation:Counseling Given: Not Answered Alcohol Use Standard Drinks/Week Comments Yes 0 (1 standard drink = 0.6 oz pur e alcohol) Occasional beer PHQ-2 Answer Date Recorded PHQ-2 TOTAL SCORE 0 03/28/2024 Social Connections Answer Date Recorded Do you often feel lonely or isolated from those around you? 0 05/24/2024 Alcohol Use Answer Date Recorded How often do you have a drink containing alcohol ? 3 05/24/2024 How many drinks containing a lcohol do you have on a typical day when you are drinking? 0 05/24/2024 How often do you have five or more drinks on one occasion? 0 05/24/2024 Financial Resource Strain Answer Date R ecorded Difficulty of Paying Living Expenses 3 05/24/2024 Difficulty of Paying Living Expenses Not on file 05/24/2024 Food Insecurity Answer Date Recorded Do you worry your food will run out before you are able to buy more? 1 05/24/2024 Transportation Needs Answer Date Record ed Does lack of transportation keep you from medica l appointments? 1 05/24/2024 Does lack of transportation keep you from work, meetings or getting things that you need? 1 05/24/2024 Housing Stability Answer Date Recorded What is your housing situation today? 1 05/24/2024 Utilities Answer Date Recorded Do you have trouble paying f or utilities (for example, heat, electricity, water, phone)? 1 05/24/2024 Sex and Gender Information Value Date Recorded Sex Assigned at Male 05/12/2020 4:43 PM [employer] Legal Sex Male 5:24 AM [employer]RET [employer]ER Gender Identity Male 05/12/2020 4:43 PM [employer]ER Sexual Orientation Straight 05/12/2020 4: 43 PM [employer] T[employer]ER Occupation Industry Job Start Date Job End Date Retired Not on file Not on file Not on file Obstetrics History Last Filed Vital Signs Vital Sign Reading Time Taken Comments Blood Pressure 165/87 09/18/2024 4:50 PM CDT Pulse 85 09/18/2024 4:50 PM CDT Temperature 36.3 C (97.4 F) 09/18/2024 3:50 PM CDT Respiratory Rate 16 09/18/2024 4:50 PM CDT Oxygen Saturation 99% 09/18/2024 4:50 PM CDT Inhaled Oxygen Concentration - - Weight 89.7 kg (197 lb 12.8 oz) 025 10:08 AM CDT Height 177.8 cm (5' 10) 09/18/2024 10: 08 AM CDT Body Mass Index 28.38 09/18/2024 10:08 AM CDT Plan of Treatment Upcoming Encounters Date Type Department Care Team (Late st Contact Info) Description 09/26/2024 10:10 AM CDT Office Visit [facility] [address] [place] [phone] Adrian Peterson MD [address] [facility] [address] [place] [address] 10/23/2024 9:00 AM CDT Office Visit [facility] [address] [facility] [address] [place], [place] [phone] [place] [address] [place], [place] [phone] Health Maintenance Due Date Last Done Comments COVID-19 vaccine series (8 - Pfizer risk season) 2024 01/24/2024, 02/02/2023, 01/19/2022, Additional history exists Influenza Vaccine (#1) 2024 , 12/09/2022, 12/31/2021, Additional history exists Depression screening for age 12+ 03/28/2025 03/28/2024, 04/01/2023, 03/31/2023, Additional history exists Medicare Wellness for age 65+ 03/29/2025 03/28/2024, 03/12/2023, 03/02/2022, Additional history exists BMI (ht and wt on same day) for age 18+ 08/29/2025 08/29/2024, 08/10/2024, 05/24/2024, Additional history exists Tetanus booster 06/25/2032 06/25/2022, 12/21, 05/05/2004 Pneumococcal series for age 50+ Completed 07/17/2014, 05/05/2004 Zoster (shingles) series for age 50+ Completed 11/04/2018, 09/08/2018, 06/12/2018, Additional history exists RSV vaccine for adults or Completed 02/23/2024 Hepatitis B series for 19+ Aged Out N o longer eligible based on patient's age to complete this topic Procedures Procedure Name Priority Date/Time Associated Diagnosis Comments ENDOTRACHEAL TUBE Routine 09/18/2024 1:12 PM CDT EXCISION MELANOMA WITH SENTINEL BIOPSY Tier 2 09/18/2024 12:40 PM CDT Malignant melanoma, unspecified site (HC) Case Notes 90 MIN - 1230SENT NODE-0800 DOS Special Needs 5ft8.27in 92.1kg 30.64 BMIASA last dose no tx HOHNUCLEAR MEDICINE AT 0800 NM LYMPHOSCINTIGRAPHY MELANOMA Routine 09/18/2024 9:00 AM CDT 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) PATH TISSUE EXAM Routine 07/25/2024 11:15 AM CDT Neoplasm of uncertain behavior from Last 3 Months Results * ETT (09/18/2024 1:12 PM CDT) Narrative Julissa Franco CRNA Student - 09/18/2024 1:12 PM CDT Julissa Franco CRNA Student 09/18/2024 1:12 PM Procedure: ETT Patient location during procedure: OR ETT Properties Mask Ventilation: easy Final Technique: direct laryngoscopy Type: straight Location: oral Cuffed: yes Tube Size: 8.0 mm Stylet: yes Laryngoscope Blade: Hanna Blade Size: 2 Cormack-Lehane Grade View: 1 Insertion Attempts: 1 Placement Verification: auscultation, end tidal CO2 and symmetrical chest wall movement Assessment: pharynx clear, atraumatic, dentition unchanged and other (comment) (mouth/dentition inspected prior and post intubation. no changes) Secured at: 23 Measured From: teeth Tooth guard used and removed: yes Bite Block: soft Difficulty: 0 (not difficult) Notes: lips/teeth/mouth inspected prior and post intubation. no changes Lisa Ann MD ANESTHESIA PX NOTE ORDERA BLES Final Result * NM LYMPHOSCINTIGRAPHY MELANOMA (09/18/2024 9:00 AM CDT) Anatomical Region Laterality Modality Abdomen, Pelvis Nuclear Medicine 09/18/2024 9:00 AM CDT Impressions 09/18/2024 9:37 AM CDT Left axillary sentinel lymph nodes were marked for surgery Narrative 09/18/2024 9:37 AM CDT For Patients: As a result of the Cures Act, medical imaging exams and procedure reports are released immediately into your electronic medical record. You may view this report before your referring provider. If you have questions, please contact your health care provider. EXAM: NM LYMPHOSCINTIGRAPHY MELANOMA LOCATION: [facility] DATE: 09/18/2024 INDICATION: Wauseon lymph node localization. Melanoma. Index lesion left upper extremity. COMPARISON: None TECHNIQUE: The primary site was prepped and draped in sterile fashion. 506 uCi of technetium-99m Lymphoseek were injected into the surrounding subcutaneous tissues. Imaging was performed. FINDINGS: Radiotracer uptake within 2 axillary lymph nodes, which were subsequently marked for surgery. Procedure Note Primo Groves MD - 09/18/2024 For Patients: As a result of the Cures Act, medical imagingexams and procedure reports are released immediately into your electronicmedical record. You may view this report before your referring provider.If you have questions, please contact your health care provider. EXAM: NM LYMPHOSCINTIGRAPHY MELANOMA LOCATION: [facility] DATE: 09/18/2024 INDICATION: Wauseon lymph node localization. Melanoma. Index lesion leftupper extremity. COMPARISON: None TECHNIQUE: The primary site was prepped and draped in sterile fashion. 506uCi of technetium-99m Lymphoseek were injected into the surroundingsubcutaneous tissues. Imaging was performed. FINDINGS: Radiotracer uptake within 2 axillary lymph nodes, which weresubsequently marked for surgery. IMPRESSION: Left axillary sentinel lymph nodes were marked for surgery us Adrian Peterson MD NM Final Resul t * PATH TISSUE EXAM (07/25/2024 11:15 AM CDT) Case Report Pathology Report Case: [id number] Authorizing Provider: Estelle Sanchez DO Collected: 07/25/2024 1115 Ordering Location: [facility] Received: 07/25/2024 1606 [facility] Pathologist: Luiz Loco MD Specimens: A) - Skin, left lateral upper arm B) - Skin, left posterior shoulder 08/01/2024 11:09 AM CDT [facility] [employer] [facility] Final Diagnosis A) SKIN, LEFT LATERAL UPPER ARM, BIOPSY: 1. Malignant melanoma a. Maximum depth of invasion: 1.0 mm b. Ulceration: Present c. Margins: Negative, but less than 1 mm in the plane of section examined 2. See comment and staging parameters below B) SKIN, LEFT POSTERIOR SHOULDER, BIOPSY: 1. Malignant melanoma a. Maximum depth of invasion: 0.5 mm b. Ulceration: Not identified c. Margins: Peripheral: Positive (for in situ component); Deep: Negative 2. See comment and staging parameters below 08/01/2024 11:09 AM CDT [facility] at 1109 CDT Comment A) Re-excision to obtain 1.0-2.0 cm negative margins and consideration of sentinel lymph node biopsy are recommended. B) Re-excision to obtain 1.0 cm negative margins is recommended. Dr. Loco has left a message with these results to Estelle Barrera on 08/01/2024 Dr. Lamberto Mccray has reviewed parts A and B and concurs with the diagnosis. 08/01/2024 11:09 AM [facility] Clinical Information A) rule out BCC B) rule out melanoma 08/01/2024 11:09 AM [facility] Gross Description A) Received in formalin, labeled with the patient's name and left lateral upper arm, is a 0.9 x 0.9 x 0.1 cm on oriented pale-mata skin shave biopsy with a 0.7 x 0.6 cm maroon-mata slightly raised, crusted and ulcerated lesion. Specimen is inked orange, trisected and entirely submitted in 1 cassette. B) Received in formalin, labeled with the patient's name and left posterior shoulder, is a 1.9 x 1.3 x 0.1 cm unoriented pale-mata skin shave biopsy with a 1.7 x 1.3 cm thickened, mottled mata-brown ill-defined lesion. Specimen is inked blue, transversely sectioned (6 pieces) and entirely submitted sequential in 2 cassettes. LDW 07/27/2024 08/01/2024 11:09 AM [facility] Microscopic Description The final diagnosis is based on microscopic examination of appropriate sections of all specimens. A) the presence of orange ink is confirmed on tissue sections. Immunostains were performed and show: SOX10: Diffusely positive in tumor cells Melan-A: Diffusely positive in tumor cells Cytokeratin cocktail: Negative P40: Negative B) the presence of blue ink is confirmed on tissue sections. 08/01/2024 11:09 AM [facility] SYNOPTIC REPORTING MELANOMA OF THE SKIN: Excision, Re-Excision MELANOMA OF THE SKIN: EXCISION, RE-EXCISION - A 8th Edition - Protocol posted: 01/29/2021 SPECIMEN Procedure: Shave biopsy Specimen Laterality: Left TUMOR Tumor Site: Skin of upper limb and shoulder: Lateral upper arm Multiple Primary Sites: Present Histologic Type: Superficial spreading melanoma (low-cumulative sun damage (CSD) melanoma) Maximum Tumor (Breslow) Thickness (Millimeters): 1.0 mm Macroscopic Satellite Nodule(s): Not identified Ulceration: Present Anatomic (Aki) Level: IV (Melanoma invades reticular dermis) Mitotic Rate: 2 mitoses per mm2 Microsatellite(s ): Not identified Lymphovascular Invasion: Not identified Neurotropism: Not identified Tumor-Infiltrati ng Lymphocytes: Present, brisk Tumor Regression: Present, involving less than 75% of lesion MARGINS: Margin Status for Invasive Melanoma: All margins negative for invasive melanoma Margin Status for Melanoma in situ: All margins negative for melanoma in situ REGIONAL LYMPH NODES: Regional Lymph Node Status: Not applicable (no regional lymph nodes submitted or found) PATHOLOGIC STAGE CLASSIFICATION (pTNM, AJCC 8th Edition): pT Category: pT1b pN Category: pN not assigned (no nodes submitted or found) MELANOMA OF THE SKIN: Excision, Re-Excision MELANOMA OF THE SKIN: EXCISION, RE-EXCISION - B 8th Edition - Protocol posted: 01/29/2021 SPECIMEN Procedure: C.SHAVEG Specimen Laterality: Left TUMOR Tumor Site: Skin of upper limb and shoulder: Posterior shoulder Multiple Primary Sites: Present Histologic Type: Superficial spreading melanoma (low-cumulative sun damage (CSD) melanoma) Maximum Tumor (Breslow) Thickness (Millimeters): 0.5 mm Macroscopic Satellite Nodule(s): Not identified Ulceration: Not identified Anatomic (Aki) Level: III (Melanoma fills and expands papillary dermis) Mitotic Rate: None identified Microsatellite(s ): Not identified Lymphovascular Invasion: Not identified Neurotropism: Not identified Tumor-Infiltrati ng Lymphocytes: Present, nonbrisk Tumor Regression: Present, involving less than 75% of lesion MARGINS: Margin Status for Invasive Melanoma: All margins negative for invasive melanoma Margin Status for Melanoma in situ: Melanoma in situ present at margin Margin(s) Involved by Melanoma in Situ: Peripheral REGIONAL LYMPH NODES: Regional Lymph Node Status: Not applicable (no regional lymph nodes submitted or found) PATHOLOGIC STAGE CLASSIFICATION (pTNM, AJCC 8th Edition): pT Category: pT1a pN Category: pN not assigned (no nodes submitted or found) 08/01/2024 11:09 AM CDT [employer] [facility] [facility] Additional Information Interpreted at [facility], Central Laboratory - [address], [place] [address] Immunohistochemis try controls were reviewed and approved as appropriate by the pathologist during this examination. 08/01/2024 11:09 AM T [facility] Other SPECIMEN FROM SKIN / Unknown Non-Blood / Unknown 07/25/2024 11:15 AM CDT 07/25/2024 4:06 PM CDT Specimen (specimen) SPECIMEN FROM SKIN / Unknown 07/25/2024 11:15 AM CDT 07/25/2024 4:06 PM CDT Estelle Sanchez DO PATHOLOGY/CYTOLOGY Thais mcmahon Result [facility] [address] [address], from Last 3 Months Insurance MEDICARE PART B HB ONLY [place] BL[place] MR PB ONLY [place] BLUE HB ONLY MEDICARE PART A HB ONLY Advance Directives Documents on File Type Date Recorded Patient Block Mason Expl anation Healthcare Directive 12/10/2016 3:53 PM [facility] 10/19/[facility] * Full Code (Latest Code Status on File) Date Activated Date Inactivated Comments 09/18/2024 9:34 AM 09/18/2024 7:10 PM Question Answer Comments Code Status Discussion: Discussed * Full Code Date Activated Date Inactivated Comments 03/31/2018 1:30 PM 04/02/2018 1:13 PM Care Teams [employer] Edge Beveler Relationship Specialty Start Date End Date Dave Romero MD [address] [place] [address] PCP - General Family Practice 04/07/11 Katherine Smith AuD [address] [place] [address] Audiology 06/04/11 [place] [address] [place] [address] Dermatology 08/01/24 Adrian Peterson MD [address] [facility] [address] [place], [place] [id number] Surgery - Oncology 08/07/24 Yissel Gibson RN [address] [place], [place] [id number] Nurse Navigator - Oncology Registered Nurse 08/10/24
[2024-09-19 15:32] LABS: Hematocrit 38.3 % (37.0-53.0); Hemoglobin* 12.2 gm/dL (13.5-17.5); Immature Granulocytes Abs Auto 0.03 K/uL (0.00-0.30); Immature Granulocytes Pct Auto 0.3 %; Mean Corpuscular HGB Conc 32 gm/dL (32-36); Mean Corpuscular Hemoglobin 30 pg (26-34); Mean Corpuscular Volume 94 fL (80-100); RDW Coefficient of Variation % 14.1 % (11.5-15.5); Red Blood Count 4.09 m/uL (4.30-5.90); White Blood Count* 10.98 K/uL (4.50-11.00)
[2024-09-19 15:41] LABS: Lymphocytes Absolute Auto 1.70 K/uL (0.90-2.90); Slide Review Reflex No
[2024-09-19 15:48] LABS: Chloride* 103 mmol/L (96-114); Potassium* 3.7 mmol/L (3.6-5.1); Sodium* 136 mmol/L (135-149)
[2024-09-19 15:51] LABS: Anion Gap 8 mEq/L (7-15); Blood Urea Nitrogen* 27 mg/dL (7-30); Calcium* 9.5 mg/dL (8.4-10.6); Carbon Dioxide* 25 mmol/L (20-32); Creatinine* 1.6 mg/dL (0.5-1.5); Est. Creatinine Clearance* 32.95; Estimated Glomerular Filt Rate 41 ml/min; Glucose* 134 mg/dL (60-115)
--- NOTE | 2024-09-19 16:21 | ED.FALL ---
HPI - Fall General Date Seen: 09/19/24 Chief Complaint: Fall/Minor Trauma Stated Complaint: Ultrasound Quad left Time Seen by Provider: 09/19/24 14:50 Source: patient and family Mode of arrival: ambulatory Limitations: no limitations History of Present Illness HPI Narrative: Patient is an 89-year-old male presenting to the emergency department with his and granddaughter for left flank pain and rib fractures. He was at [facility] [place] yesterday for surgery for malignant melanoma. When he was getting ready to go home he lost his balance and fell against a toilet. He had no pain initially was able to ambulate around without issues. He was discharged home without imaging. Today he woke up and now has quite a bit of left flank pain. Typically only walks with a cane but due to the pain had to use a walker. Denies hitting his head. Denies any lightheadedness or dizziness. Went to urgent care and they did an x-ray showing 3 rib fractures on the possible hydropneumothorax. Due to this she was transferred to [facility] for further evaluation. He denies any chest pain or shortness of breath. Denies any abdominal pain. States his only pain right now is in his back. No other concerns noted. Related Data Home Medications ?Medication ?Instructions ?Recorded ?Confirmed calcium carbonate (Calcium 600) 600 mg PO DAILY 10/27/21 09/19/24 cholecalciferol (vitamin D3) 25 1,000 unit PO DAILY 10/27/21 09/19/24 mcg (1,000 unit) capsule methimazole 5 mg tablet 2.5 mg PO DAILY 10/27/21 09/19/24 tamsulosin 0.4 mg capsule 0.4 mg PO BID 10/27/21 09/19/24 vit C 250 mg-vit E 90 mg-zinc 40 1 tab PO DAILY 12/17/21 09/19/24 mg-copper 1 [id number] capsule (PreserVision AREDS-2) sertraline 25 mg tablet 25 mg PO QAM 05/28/24 09/19/24 ibuprofen 200 mg capsule 200 mg PO Q6H PRN 07/11/24 09/19/24 Previous Rx's ?Medication ?Instructions ?Recorded aspirin 81 mg chewable tablet 81 mg PO DAILY #90 tabs 03/25/23 (Children's Aspirin) Held on 05/28/24. Instructions: Resume on 06/28/24. take twice a day for a month, then back to once a day clopidogrel 75 mg tablet 75 mg PO DAILY #30 tabs 03/25/23 simvastatin 20 mg tablet 20 mg PO HS #30 tabs 03/25/23 acetaminophen 650 mg 1,300 mg (2 x 650 mg) PO Q8H #90 05/28/24 tablet,extended release tabs aspirin 81 mg chewable tablet 81 mg PO BID #60 tabs 05/28/24 (Children's Aspirin) Allergies Allergy/AdvReac Type Severity Reaction Status Date / Time Fish Containing Products Allergy Unknown Verified 09/19/24 14:49 lisinopril Allergy Unknown Cough Verified 09/19/24 14:49 Sulfa (Sulfonamide Allergy Unknown Verified 09/19/24 14:49 Antibiotics) Review of Systems Status of ROS: Reports: 10 or more systems reviewed and unremarkable except as noted in History and below [facility] Medical History Accidental fall on or from stairs or steps ?W10.8XXA - Fall (on) (from) other stairs and steps, initial encounter (ICD-10) TIA (transient ischemic attack) (04/01/23) ?G45.9 - Transient cerebral ischemic attack, unspecified (ICD-10) Hyperlipidemia (04/29/06) ?E78.5 - Hyperlipidemia, unspecified (ICD-10) BPH (benign prostatic hyperplasia) (04/29/06) ?N40.0 - Benign prostatic hyperplasia without lower urinary tract symptoms (ICD-10) Bladder stones (03/31/18) ?N21.0 - Calculus in bladder (ICD-10) Vitamin D deficiency (02/12/14) ?E55.9 - Vitamin D deficiency, unspecified (ICD-10) Subclinical hyperthyroidism (03/02/22) ?E05.90 - Thyrotoxicosis, unspecified without thyrotoxic crisis or storm (ICD-10) Sensorineural hearing loss, 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) ?H90.3 - Sensorineural hearing loss, bilateral (ICD-10) TOMAS (obstructive sleep apnea) (06/19/12) ?G47.33 - Obstructive sleep apnea (adult) (pediatric) (ICD-10) Hydrocele, unspecified (02/23/11) ?N43.3 - Hydrocele, unspecified (ICD-10) HTN, goal below 140/90 (04/08/11) ?I10 - Essential (primary) hypertension (ICD-10) Elevated coronary artery calcium score (03/02/22) ?R93.1 - Abnormal findings on diagnostic imaging of heart and coronary circulation (ICD-10) Depression, recurrent (03/12/23) ?F33.9 - Major depressive disorder, recurrent, unspecified (ICD-10) Arterial hypotension (05/25/23) ?I95.9 - Hypotension, unspecified (ICD-10) Mild depression ?F32.A - Depression, unspecified (ICD-10) Hyperthyroidism ?E05.90 - Thyrotoxicosis, unspecified without thyrotoxic crisis or storm (ICD-10) Nephrolithiasis ?N20.0 - Calculus of kidney (ICD-10) History of TIA (transient ischemic attack) ?Z86.73 - Personal history of transient ischemic attack (TIA), and cerebral infarction without residual deficits (ICD-10) BPH (benign prostatic hyperplasia) ?N40.0 - Benign prostatic hyperplasia without lower urinary tract symptoms (ICD-10) Hyperlipidemia ?E78.5 - Hyperlipidemia, unspecified (ICD-10) Rupture of left biceps tendon ?S46.212A - Strain of muscle, fascia and tendon of other parts of biceps, left arm, initial encounter (ICD-10) Osteoarthritis of left shoulder ?M19.012 - Primary osteoarthritis, left shoulder (ICD-10) Rotator cuff tear, left ?M75.102 - Unspecified rotator cuff tear or rupture of left shoulder, not specified as traumatic (ICD-10) Urinary retention due to benign prostatic hyperplasia ?N40.1 - Benign prostatic hyperplasia with lower urinary tract symptoms (ICD-10) ?R33.8 - Other retention of urine (ICD-10) Sepsis ?A41.9 - Sepsis, unspecified organism (ICD-10) Escherichia coli urinary tract infection ?N39.0 - Urinary tract infection, site not specified (ICD-10) ?B96.20 - Unspecified Escherichia coli [E. coli] as the cause of diseases classified elsewhere (ICD-10) Encounter for counseling regarding advance directives (10/19/16) ?Z71.89 - Other specified counseling (ICD-10) Calculus of urinary bladder ?N21.0 - Calculus in bladder (ICD-10) History of bladder stone ?Z87.448 - Personal history of other diseases of urinary system (ICD-10) Surgical History S/P tendon repair (05/28/24) ?Z98.890 - Other specified postprocedural states (ICD-10) History of arthroscopy of right shoulder ?Z98.890 - Other specified postprocedural states (ICD-10) History of hernia repair ?Z98.890 - Other specified postprocedural states (ICD-10) ?Z87.19 - Personal history of other diseases of the digestive system (ICD-10) History of arthroscopy of left shoulder (12/25/08) ?Z98.890 - Other specified postprocedural states (ICD-10) Family History Mother Pancreatic cancer Social History What is your current living situation?: I presently have a place to live Problems where you live: no known problems Problems where you live details: none In the past 12 months, utilities in danger of being shut off: no In past 12 months, lack of transportation kept you from medical appts, meetings, work, or getting things needed for daily living: no In the past 12 mos, have been you worried that your food would run out before you had money to buy more?: never true In the past 12 mos, the food you bought just didn't last and you didn't have money to buy more?: never true Highest level of school completed/degree received: Master's degree Smoking Status: Never smoker Do you use any of these nicotine containing products: None Second hand tobacco smoke exposure: No How often do you have a drink containing alcohol: 4 or more times a week Alcohol type: beer and hard liquor How many standard drinks containing alcohol do you have on a typical day: 1 or 2 How often do you have six or more drinks on one occasion: Daily or almost daily AUDIT-C Alcohol total score: 8 Non-prescribed substance use: denies use Caffeine: Yes (1 cup of tea or 1 pop a day) Are you now , , , , never or living with a partner: Social isolation score (0-1 are the most socially isolated patients): 1 How often does anyone, including family, friends and others, physically hurt you: never How often does anyone, including family, friends and others, insult or talk down to you: never How often does anyone, including family, friends and others, threaten you with harm: never How often does anyone, including family, friends and others, scream or curse at you: never service: No Exam Narrative: Exam Narrative: Const: Well-nourished, Well-developed, in mild to moderate distress Eyes: PERRL, no conjunctival injection, and symmetrical lids HENT: Atraumatic external nose and ears. Moist mucous membranes. Neck: Symmetric, trachea midline, No thyromegaly. CVS: RRR, No murmurs or gallops. Peripheral pulses 2+ and equal in all extremities RESP: Unlabored respiratory effort. Clear to auscultation bilaterally. GI: Nontender/Nondistended, No rebound or guarding. MSK:Extremities w/o deformity, Normal Active ROM, no midline spinal tenderness. No right-sided back tenderness. Left-sided back tenderness around ribs 8 through 10. Skin: Warm, Dry. No rashes or lesions. Neuro: Normal Muscle tone, No focal neurological deficits. Psych: Awake, Alert, & Oriented x3. Appropriate mood and affect. Const: Vital Signs, click to edit/add: Vital Signs - 24 hr 09/19/24 14:45 09/19/24 16:43 Temperature 98.2 F Pulse Rate 70 Pulse Rate [Pulse Oximeter] 79 Respiratory Rate 20 16 Blood Pressure 140/79 H Blood Pressure [Ri ght Upper Arm] 95/61 Pulse Oximetry 93 93 Oxygen Delivery Me thod Room Air Room Air Course Vital Signs Vital signs: Initial Vital Signs Temperature 98.2 F 09/19/24 14:45 Temperature Source Temporal Artery Scan 09/19/24 14:45 Pulse Rate 79 09/19/24 14:45 Pulse Rhythm Regular 09/19/24 14:45 Pulse Strength 3+ Normal 09/19/24 14:45 Respiratory Rate 20 09/19/24 14:45 Blood Pressure 95/61 09/19/24 14:45 Blood Pressure Mean 72 09/19/24 14:45 Blood Pressure Position Sitting 09/19/24 14:45 Pulse Oximetry 93 09/19/24 14:45 Oxygen Delivery Method Room Air 09/19/24 14:45 Vital Signs Temperature 98.2 F 09/19/24 14:45 Pulse Rate 79 09/19/24 14:45 Respiratory Rate 20 09/19/24 14:45 Blood Pressure 95/61 09/19/24 14:45 Pulse Oximetry 93 09/19/24 14:45 Oxygen Delivery Method Room Air 09/19/24 14:45 Temperature 98.2 F 09/19/24 14:45 Pulse Rate 70 09/19/24 16:43 Respiratory Rate 16 09/19/24 16:43 Blood Pressure 140/79 H 09/19/24 16:43 Pulse Oximetry 93 09/19/24 16:43 Oxygen Delivery Method Room Air 09/19/24 16:43 Medications Administered Medications: Discontinued Medications Generic Name Dose Route Start Last Admin Trade Name Jamarq PRN Reason Stop Dose Admin Diphenhydramine HCl 50 mg 09/19/24 15:04 09/19/24 15:44 Diphenhydramine 50 Mg/Ml Inj IVP 09/19/24 15:05 Not Given ONCE ONE Hydrocortisone Sodium Succinate 200 mg 09/19/24 15:04 09/19/24 15:44 Hydrocortisone Sod Succinate 50 Mg/Ml Inj IVP 09/19/24 15:05 Not Given ONCE ONE MDM - Fall MDM Narrative Medical decision making narrative: Patient is an 89 year old male presenting to the emergency department after a fall. The fall occurred yesterday. He was sent here for CT scan. Considering location of the injury will do CT scan with IV contrast of the chest abdomen pelvis to look for any other internal injuries. What to do CBC and BMP prior to this for creatinine. Creatinine came back elevated at 1.6. His baseline hovers around between 0.9-1.3 based on both [email or web address] and epic record. Does not meet criteria for an JEANIE at this time. Family does states he has been eating or drinking a lot over the past couple days. This is likely what is causing his increased kidney function along with the surgery that he had yesterday. CT scan returned showing 3 rib fractures at ribs 910 and 11. 10 and 11 are mildly displaced. No signs of pneumothorax, hemothorax, pleural effusion. There is some dependent atelectasis. There is a small soft tissue in the ear and the super low lateral anterior left chest. This is consistent with his surgery from yesterday. Further evaluation is not necessary. It has not been 25 hour since his fall. I did speak to the ED provider at [facility]. They state the patient is likely safe for discharge if he has normal vital signs and is breathing well. She did recommend doing incentive spirometry. She states the commonly is can send patient's home directly from the ED if multiple nondisplaced rib fractures. He does have 2 mildly displaced rib fractures but again this is 25 hours old and I do not believe he needs to be further evaluated. I spoke to the family extensively about this and they feel comfortable. I offered to do the incentive spirometer today and they declined at this time as they feel he is doing well and is safe for discharge. They do not request anything further for pain. He does have previous oxycodone from a previous surgery that occurred a few months ago. I given strict return precautions and they state they agree with these and will come back if there is any concern. Lab Data Labs: Lab Results 09/19/24 Range/Units 15:20 WBC 10.98 (4.50-11.00) K/uL RBC 4.09 L (4.30-5.90) m/uL Hgb 12.2 L (13.5-17.5) gm/dL Hct 38.3 (37.0-53.0) % MCV 94 (80-100) fL MCH 30 (26-34) pg MCHC 32 (32-36) gm/dL RDW Coeff of Heather 14.1 (11.5-15.5) % Plt Count 229 (140-440) K/uL Neut % (Auto) 70.8 (42.0-72.0) % Lymph % (Auto) 15.7 L (20-44) % Coryell % (Auto) 12.6 H (0.0-11.0) % Eos % (Auto) 0.3 (0.0-7.0) % Baso % (Auto) 0.3 (0.0-3.0) % Neut # (Auto) 7.79 H (1.7-7.0) K/uL Lymph # (Auto) 1.70 (0.90-2.90) K/uL Coryell # (Auto) 1.40 H (0.00-0.90) K/UL Eos # (Auto) 0.03 (0.00-0.50) K/uL Baso # (Auto) 0.03 (0.00-0.30) K/uL Abs Immat Gran (auto) 0.03 (0.00-0.30) K/uL Imm/Tot Granulo (auto) 0.3 % Sodium 136 (135-149) mmol/L Potassium 3.7 (3.6-5.1) mmol/L Chloride 103 (96-114) mmol/L Carbon Dioxide 25 (20-32) mmol/L Anion Gap 8 (7-15) mEq/L BUN 27 (7-30) mg/dL Creatinine 1.6 H (0.5-1.5) mg/dL Estimated Creat Clear 32.95 Estimated GFR 41 ml/min Glucose 134 H (60-115) mg/dL Calcium 9.5 (8.4-10.6) mg/dL Imaging Data CT Chest/Ab/Pelvis: Attestation: I have reviewed the pertinent imaging results. Radiologist's impression: 1. Acute near-anatomically aligned fracture of the posterior left 9th rib as well as acute displaced fractures of the posterior left 10th and 11th ribs. 2. Small amount of soft tissue air in the superolateral anterior left chest. No pneumothorax. 3. Multiple chronic findings, as above. Please note that all CT scans at this facility use dose modulation, iterative reconstruction, and/or weight-based dosing when appropriate to reduce radiation dose to as low as reasonably achievable. Dictated by Thang Bryson MD @ 09/19/2024 5:06:38 PM Discharge Plan Discharge Clinical Impression: Fracture of rib Patient Disposition: Home, Self-Care Condition: Stable Instructions: Rib Fracture (ED) Additional Instructions: I recommend close follow-up with his primary care provider this week for re-evaluation. I recommend he stays active and walks as much as he can tolerate. Laying in bed all day increase his risk of pneumonia. Also recommend when he follow-up the primary care provider speak to them about his increased creatinine. This is an indicator for kidney function and is likely elevated due to his decreased oral intake over the past few days. Is important he gets this rechecked to make sure it is not getting worse. If he develops shortness of breath or any other concerning symptoms please return immediately for re-evaluation. Prescriptions: No Action cholecalciferol (vitamin D3) 25 mcg (1,000 unit) capsule 1,000 unit PO DAILY calcium carbonate [Calcium 600] 600 mg calcium (1,500 mg) tablet 600 mg PO DAILY methimazole 5 mg tablet 2.5 mg PO DAILY tamsulosin 0.4 mg capsule 0.4 mg PO BID PreserVision AREDS-2 250-90-40-1 mg capsule 1 tab PO DAILY ibuprofen 200 mg capsule 200 mg PO Q6H PRN clopidogrel 75 mg Tablet 75 mg PO DAILY Qty: 30 0RF aspirin [Children's Aspirin] 81 mg Tablet,Chewable 81 mg PO DAILY Qty: 90 0RF simvastatin 20 mg Tablet 20 mg PO HS Qty: 30 0RF sertraline 25 mg tablet 25 mg PO QAM acetaminophen 650 mg Tablet Extended Release 1,300 mg PO Q8H Qty: 90 0RF aspirin [Children's Aspirin] 81 mg Tablet,Chewable 81 mg PO BID Qty: 60 0RF Follow Up/Referrals: Dave Romero MD [Primary Care Provider, Family Practice] Stand Alone Forms: [employer] Info Instructions
[2024-09-19 16:43] VITALS: BP 140/79; PULSE 70; RESP 16; O2SAT 93
--- NOTE | 2024-09-20 13:17 | PC.SOCIAL ---
Tube Puller Consult: SW received a call from patient's about concerns with his pain and getting him to move. SW explained that this is outside of SW's practice to advise on, medically. then asked about nursing homes. SW discussed that it would be private pay due to not having an inpatient medicare qualifying stay. SW explained it could range from $350-$600 a day. SW provided the [facility] number and also mentioned [facility] and [facility] as places in town she could contact. Patient's states she will think about this, but might just get him a chair and have someone help her transfer him so he's more comfortable.
== END 2024-09-19 18:21 | disposition home or self-care (01) ==
PROVIDERS: Emergency Provider Student in an Organized Health Care Education/Training Program; PCP Family Medicine
DX: Z53.21 Procedure and treatment not carried out due to patient leaving prior to being seen by health care provider (principal)
CPT/HCPCS: 36415; 71260; 74177; 80048; 85025; 99284; Q9967

== ENCOUNTER 2024-09-20 15:33 | Outpatient (CLI) | payer MEDICARE, BC, SELFPAY | END 2024-09-20 15:34 | disposition home or self-care (01) | PROVIDERS: PCP Family Medicine; Visit Provider Family Medicine | DX: R07.81 Pleurodynia (principal) | CPT/HCPCS: A0425; A0427 ==

== ENCOUNTER 2024-09-20 16:01 | Inpatient (IN) | payer MEDICARE, BC, SELFPAY ==
[2024-09-20] VITALS (11 sets, daily range): BP systolic 135–181; BP diastolic 68–94; PULSE 63–85; RESP 16–18; TEMP 36.8–36.9; O2SAT 87–95; BMI 28.0
--- OUTSIDE RECORDS SUMMARY | 2024-09-20 16:03 | XMS_ITS | Clinical Summary ---
Author Organization [facility] Address [address] [place] [id number] Care Team Providers Care Hardening Machine Operator Name Role Phone Dave Romero MD Primary Care Provider [phone] Katherine Smith Unavailable [phone] Estelle Sanchez DO Unavailable [phone] Adrian Peterson MD Unavailable [phone] Yissel Gibson RN Unavailable Allergies Active Allergy Reactions Criticality Noted Date Comments [place]-3 Fatty Acids Other - Describe In Comment Field 04/15/2011 Causes pain in the back Lisinopril Cough 06/02/2011 Shellfish Containing Products Other - Describe In Comment Field 03/21/2012 Anything that lives in the water. Kidney, liver, spleen inflammation Sulfa (Sulfonamide Antibiotics) 04/29/2006 Medications [place] 500 mg Tab Take 1 Tab by mouth once daily. 0 12/17/19 10 Active CALCIUM CARBONATE (CALCIUM 500 ORAL) Take 1,000 mg by mouth once daily. Active lactobac cmb #1-ijl-ugtovndhjv (PROBIOTIC & ACIDOPHILUS) 300-250 million cell-mg cap Take by mouth. 0 02/13/20 14 Active Vit C-Vit A-Zouugd-Wnw-OM-3 (OCUVITE 150 MG-30 UNIT-5 MG-150 MG CAPSULE) 619-43-1-150 vk-viiz-az-mg capsule Take by mouth. 0 04/27/19 17 [...] Type Department Care Team Description 09/19/[address] [place] [address] Adrian Peterson MD Pain 09/18/2024 12:50 PM CDT Anesthesia Event [address] [address] Tai Messer CRNA Koenig, Lisa Fredkove, MD 09/18/2024 12:17 PM CDT - 09/18/2024 1:49 PM CDT Surgery [address] [address] Adrian Peterson MD wide local excision of left upper arm melanoma, sentinel lymph node biopsy wide local excision of left posterior shoulder melanoma SENT NODE AT 0800 09/18/2024 9:18 AM CDT - 09/18/2024 5:00 PM CDT Hospital Encounter [address] [place] [address] Adrian Peterson MD Malignant melanoma, unspecified site (HC) (Primary Dx); 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) Discharge Disposition: Home Self Care 09/18/2024 Travel 09/15/2024 Travel 09/14/2024 Telephone [facility] [address] [place] [phone] Adrian Peterson MD Concerns; Surgery Scheduled 09/13/2024 Telephone [facility] [address] [place] [phone] Adrian Peterson MD 09/12/2024 Telephone [facility] [address] [place] [phone] Adrian Peterson MD Questions 08/29/2024 10:50 AM CDT Office Visit [facility] [address] [place] [address] Dave Romero MD Preoperative Exam ( Removing melanoma 09/14) 08/28/2024 Travel 08/18/2024 Telephone [facility] [address] [place] [phone] Catrina Melvin CMA Surgery Scheduled 08/17/2024 Telephone [facility] [address] [place] [phone] Adrian Peterson MD Follow Up 08/12/2024 Refill [facility] [address] [place] [address] Minh Vásquez MD Refill Request (Methimazole) 08/10/2024 3:40 PM CDT Office Visit [facility] [address] [place] [phone] Adrian Peterson MD Consult 08/10/2024 Travel 08/09/2024 Telephone [facility] [address] [place] [address] NgoziCatrina J, AUTO BODY REPAIRER [employer]IBERGLASS 08/07/2024 Telephone [facility] [address] [place] [phone] NgoziCatrina J, AUTO BODY REPAIRER [employer]ERGL[employer] 08/06/2024 Travel 08/01/2024 Telephone [facility] [address] [place] [phone] Yissel Gibson, KRISTYN new referral 08/01/2024 Telephone [facility] [address] [place] [phone] [facility] Cancer Referral (Malignant melanoma, unspecified site) 08/01/2024 Orders Only [facility] [address] [address] Estelle Sanchez, <No scans attached> 07/25/2024 11:15 AM CDT Office Visit [facility] [address] [facility] [address] [place] [address] Estelle Sanchez DO Derm Problem 07/24/2024 Travel 07/19/2024 9:40 AM CDT Office Visit [facility] [address] [place] [address] Dave Romero MD Follow Up (Blood pressure follow up/Also had a recent surgery with orthopedics as well - RIGHT knee) 07/18/2024 Travel from Last 3 Months Immunizations Immunization Administration Dates Next Due AMB INFLUENZA IIV3 (AGE 65+ YRS) PF (Flu Clinic Only) 01/12/2019,12/09/2016 AMB Influenza, IIV3 (Age >=3 years)(Flu Clinic Only) 12/28/2012,01/07/2011,01/17/2008 Amb Influenza, Inact (High-d ose) (Flu Clinic Only) 01/07/2016,12/13/2013 COVID-19 vaccine ([employer] 30mcg/0.3mL) 12YO+ BIVALENT PF, MDV 01/19/2022 COVID-19 vaccine ([employer] 30mcg/0.3mL) 12YO+ KRISTINA-SUCROSE PF, MDV 07/14/2021 COVID-19 vaccine ([employer] 30mcg/0.3mL) PF, MDV 01/06/2021,06/05/2020,05/14/2020 Influenza A [...] Sex Assigned at Male 05/12/2020 4:43 PM TOOLING MECHANIC Legal Sex Male 5:24 AM TOOLING MECHANIC Gender Identity Male 05/12/2020 4:43 PM TOOLING MECHANIC Sexual Orientation Straight 05/12/2020 4: 43 PM TOOLING MECHANIC Occupation Industry Job Start Date Job End [...] Care Team (Late st Contact Info) Description 09/21/2024 12:40 PM CDT Office Visit [facility] [address] [place] [address] Aliza Peacock MD [address] [place] [address] 09/26/2024 10:10 AM CDT Office Visit [facility] [address] [place] [address] Adrian Peterson MD 225 [facility] [address] [place], [place] [id number] 10/23/2024 9:00 AM CDT Office Visit [facility] [address] [facility] [address] [place] [address] [place] [address] [place], [place] [phone] Health Maintenance Due Date Last Done Comments [...] Needs 5ft8.27in 92.1kg 30.64 BMIASA last dose 09/08OSA no tx HOHNUCLEAR MEDICINE AT 0800 NM LYMPHOSCINTIGRAPHY MELANOMA Routine 09/18/2024 9:00 AM CDT 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 You may view this report before your referring provider. If you have questions, please contact your health care provider. EXAM: NM LYMPHOSCINTIGRAPHY MELANOMA LOCATION: [facility] MEDICAL IMAGING DATE: 09/18/2024 INDICATION: [place] lymph node localization. Melanoma. Index lesion left [...] For Patients: As a result of the 21st Century Cures Act, medical imagingexams and procedure reports are released immediately into your electronicmedical record. You may view this report before your referring provider.If you have questions, please contact your health care provider. EXAM: NM LYMPHOSCINTIGRAPHY MELANOMA LOCATION: [facility] MEDICAL IMAGING DATE: 09/18/2024 INDICATION: [place] lymph node localization. Melanoma. Index lesion leftupper [...] Peterson MD NM Final Resul t * SCAN-CARDIAC STRIP (09/18/2024 12:00 AM CDT) Narrative 09/18/2024 12:00 AM CDT Ordered by an unspecified provider. us Other Clinical Staff OTHER Final Resul t * PATH TISSUE EXAM (07/25/2024 11:15 AM CDT) Case Report Pathology Report Case: [id number] Authorizing Provider: Estelle Sanchez DO Collected: 07/25/2024 1115 Ordering Location: [facility] Received: 07/25/2024 1606 [facility] Pathologist: Luiz Loco MD Specimens: A) - Skin, left lateral upper arm B) - Skin, left posterior shoulder 08/01/2024 11:09 AM CDT [facility] ENTRAL LABORATORY Final Diagnosis A) SKIN, LEFT [...] and staging parameters below 08/01/2024 11:09 AM [facility]- ENTRAL LABORATORY at 1109 CDT Comment A) [...] concurs with the diagnosis. 08/01/2024 11:09 AM T [facility] ENTRAL LAB[facility] Clinical Information A) rule out BCC B) rule out melanoma 08/01/2024 11:09 AM T [facility] ENTRAL LABORAT[facility] Gross Description A) Received in formalin, [...] 2 cassettes. LDW 07/27/2024 08/01/2024 11:09 AM CDT [facility] Microscopic Description The final diagnosis is [...] confirmed on tissue sections. 08/01/2024 11:09 AM CDT [facility]-C ENTRAL LABORATORY SYNOPTIC REPORTING MELANOMA OF THE SKIN: [...] OF THE SKIN: EXCISION, RE-EXCISION - B Edition - Protocol posted: 01/29/2021 SPECIMEN Procedure: [...] submitted or found) 08/01/2024 11:09 AM CDT [facility] Additional Information Interpreted at [facility] - [address] [facility] [address], [place] [address] Immunohistochemis try controls were reviewed and approved as appropriate by the pathologist during this examination. 08/01/2024 11:09 AM CDT [facility] Other SPECIMEN FROM SKIN / Unknown Non-Blood / Unknown 07/25/2024 11:15 AM CDT 07/25/2024 4:06 PM CDT Specimen (specimen) SPECIMEN FROM SKIN / Unknown 07/25/2024 11:15 AM CDT 07/25/2024 4:06 PM CDT us Estelle Sanchez DO PATHOLOGY/CYTOLOGY Thais mcmahon Result [facility] [address] [place] [id number], [place] from Last 3 Months Insurance MEDICARE PART B HB ONLY [employer] [place] BLUE MR PB ONLY [employer] [place] [place] BLUE HB ONLY MEDICARE PART A HB ONLY Advance Directives Documents on File Type Date Recorded Patient Developer Automatic Expl anation Healthcare Directive 12/10/2016 3:53 PM [facility], 10/19/2016 * Full Code (Latest Code Status on File) Date Activated Date Inactivated Comments 09/18/2024 9:34 AM 09/18/2024 7:10 PM Question Answer Comments Code Status Discussion: Discussed * Full Code Date Activated Date Inactivated Comments 03/31/2018 1:30 PM 04/02/2018 1:13 PM Care Teams Hardening Machine Operator Relationship Specialty Start Date End Date Dave Romero MD [address] [place] [address] PCP - General Family Practice 04/07/11 Katherine Smith AuD [address] [place] [address] Audiology 06/04/11 [place] [address] [place] [address] Dermatology 08/01/24 Adrian Peterson MD [address] [place], [place] [id number] Surgery - Oncology 08/07/24 Yissel Gibson, KRISTYN [address] [place] [address] Nurse Navigator - Oncology Registered Nurse 08/10/24
--- NOTE | 2024-09-20 16:15 | ED_ITS ---
HPI - General Adult General Date Seen: 09/20/24 Chief complaint: Rib Pain Stated complaint: Pain Time Seen by Provider: 09/20/24 16:11 History of Present Illness HPI narrative: 89 yo M brought to the ER today by EMS because he is having uncontrolled pain in his ribs. He was seen in our ER yesterday on 09/[address] Gotti. According to that note he had been at [facility] 2 days ago for a malignant melanoma surgery. While he was leaving that hospital he lost his balance and fell against the toilet. He normally walks with a cane. He was able to walk so was discharged home without getting x-rays. He return to the urgent care yesterday to have x-ray that showed 3 rib fractures and a possible hemopneumothorax. He was referred ER yesterday evening here in [place] because he was having a lot of pain in his left flank. In the ER he had a chest abdomen pelvis CT that showed a well-aligned left 9th rib fracture and displaced ribs fractures of left ribs 10 and 11. He also had a small amount of soft tissue air in the left anterior chest wall (looks like this gas was in the anterior left wall, anterior to the shoulder and is probably related to his melanoma surgery) but no pneumothorax. Labs showed white count 10.9, hemoglobin 12.2, platelet count 229. Sodium 136, potassium 3.7, BUN 27, creatinine 1.6, glucose 134. Past medical history is notable for malignant melanoma, BPH, depression, hyperlipidemia, hypothyroid, TIA. He is on baby aspirin. No other anticoagulants. He was able to discharge home yesterday and had a supply of oxycodone left over because he had a right knee surgery done a couple of months ago. He has been taking his oxycodone but finds them to be not helpful in managing his pain. Left rib pain is gotten worse overnight and was so severe he just could not get out of bed, even with his 's assistance, today. called 911. She notes that the paramedics were able to help him sit up. They brought him back here because he needs better pain control because he is more short of breath. He does have a cough and the cough is not really worsening or different today than it has been previously. No fever. No other new areas of pain. Now that he is here in the ER he says his pain is currently fairly well controlled. His also notes that he had an acute kidney injury yesterday. She wonders if we can recheck his kidney function today (we will). Related Data Home Medications ?Medication ?Instructions ?Recorded ?Confirmed calcium carbonate (Calcium 600) 600 mg PO DAILY 09/19/24 cholecalciferol (vitamin D3) 25 1,000 unit PO DAILY 09/19/24 mcg (1,000 unit) capsule methimazole 5 mg tablet 2.5 mg PO DAILY 10/27/2104/15 tamsulosin 0.4 mg capsule 0.4 mg PO BID 10/27/2109/19 vit C 250 mg-vit E 90 mg-zinc 40 1 tab PO DAILY 09/19/24 mg-copper 1 [id number] capsule (PreserVision AREDS-2) sertraline 25 mg tablet 25 mg PO QAM 05/28/24 ibuprofen 200 mg capsule 200 mg PO Q6H PRN 07/11/24 0 09/19/24 oxycodone 5 mg tablet 5 mg PO pain 09/20/24 Previous Rx's ?Medication ?Instructions ?Recorded aspirin 81 mg chewable tablet 81 mg PO DAILY #90 tabs 03/25/23 ([facility] Aspirin) Held on 05/28/24. Instructions: Resume on 06/28/24. take twice a day for a month, then back to once a day clopidogrel 75 mg tablet 75 mg PO DAILY #30 tabs 07/13 simvastatin 20 mg tablet 20 mg PO HS #30 tabs 4 acetaminophen 650 mg 1,300 mg (2 x 650 mg) PO Q8H #90 05/28/24 tablet,extended release tabs aspirin 81 mg chewable tablet 81 mg PO BID #60 tabs (Children's Aspirin) Allergies Allergy/AdvReac Type Severity Reaction Status Date / Time Fish Containing Products Allergy Unknown Verified 09/19/24 14:49 lisinopril Allergy Unknown Cough Verified 09/19/24 14:49 Sulfa (Sulfonamide Allergy Unknown Verified 09/19/24 14:49 Antibiotics) [facility] Medical History Accidental fall on or from stairs or steps ?W10.8XXA - Fall (on) (from) other stairs and steps, initial encounter (ICD- 10) TIA (transient ischemic attack) (04/01/23) ?G45.9 - Transient cerebral ischemic attack, unspecified (ICD-10) Hyperlipidemia (04/29/06) ?E78.5 - Hyperlipidemia, unspecified (ICD-10) BPH (benign prostatic hyperplasia) (04/29/06) ?N40.0 - Benign prostatic hyperplasia without lower urinary tract symptoms (ICD-10) Bladder stones (03/31/18) ?N21.0 - Calculus in bladder (ICD-10) Vitamin D deficiency (02/12/14) ?E55.9 - Vitamin D deficiency, unspecified (ICD-10) Subclinical hyperthyroidism (03/02/22) ?E05.90 - Thyrotoxicosis, unspecified without thyrotoxic crisis or storm (ICD-10) Sensorineural hearing loss, 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) ?H90.3 - Sensorineural hearing loss, bilateral (ICD-10) TOMAS (obstructive sleep apnea) (06/19/12) ?G47.33 - Obstructive sleep apnea (adult) (pediatric) (ICD-10) Hydrocele, unspecified (02/23/11) ?N43.3 - Hydrocele, unspecified (ICD-10) HTN, goal below 140/90 (04/08/11) ?I10 - Essential (primary) hypertension (ICD-10) Elevated coronary artery calcium score (03/02/22) ?R93.1 - Abnormal findings on diagnostic imaging of heart and coronary circulation (ICD-10) Depression, recurrent (03/12/23) ?F33.9 - Major depressive disorder, recurrent, unspecified (ICD-10) Arterial hypotension (05/25/23) ?I95.9 - Hypotension, unspecified (ICD-10) Mild depression ?F32.A - Depression, unspecified (ICD-10) Hyperthyroidism ?E05.90 - Thyrotoxicosis, unspecified without thyrotoxic crisis or storm (ICD-10) Nephrolithiasis ?N20.0 - Calculus of kidney (ICD-10) History of TIA (transient ischemic attack) ?Z86.73 - Personal history of transient ischemic attack (TIA), and cerebral infarction without residual deficits (ICD-10) BPH (benign prostatic hyperplasia) ?N40.0 - Benign prostatic hyperplasia without lower urinary tract symptoms (ICD-10) Hyperlipidemia ?E78.5 - Hyperlipidemia, unspecified (ICD-10) Rupture of left biceps tendon ?S46.212A - Strain of muscle, fascia and tendon of other parts of biceps, left arm, initial encounter (ICD-10) Osteoarthritis of left shoulder ?M19.012 - Primary osteoarthritis, left shoulder (ICD-10) Rotator cuff tear, left ?M75.102 - Unspecified rotator cuff tear or rupture of left shoulder, not specified as traumatic (ICD-10) Urinary retention due to benign prostatic hyperplasia ?N40.1 - Benign prostatic hyperplasia with lower urinary tract symptoms (ICD- 10) ?R33.8 - Other retention of urine (ICD-10) Sepsis ?A41.9 - Sepsis, unspecified organism (ICD-10) Escherichia coli urinary tract infection ?N39.0 - Urinary tract infection, site not specified (ICD-10) ?B96.20 - Unspecified Escherichia coli [E. coli] as the cause of diseases classified elsewhere (ICD-10) Encounter for counseling regarding advance directives (10/19/16) ?Z71.89 - Other specified counseling (ICD-10) Calculus of urinary bladder ?N21.0 - Calculus in bladder (ICD-10) History of bladder stone ?Z87.448 - Personal history of other diseases of urinary system (ICD-10) Surgical History S/P tendon repair (05/28/24) ?Z98.890 - Other specified postprocedural states (ICD-10) History of arthroscopy of right shoulder ?Z98.890 - Other specified postprocedural states (ICD-10) History of hernia repair ?Z98.890 - Other specified postprocedural states (ICD-10) ?Z87.19 - Personal history of other diseases of the digestive system (ICD-10) History of arthroscopy of left shoulder (12/25/08) ?Z98.890 - Other specified postprocedural states (ICD-10) Family History Mother Pancreatic cancer Social History What is your current living situation?: I presently have a place to live Problems where you live: no known problems Problems where you live details: NA In the past 12 months, utilities in danger of being shut off: no In past 12 months, lack of transportation kept you from medical appts, meetings, work, or getting things needed for daily living: no In the past 12 mos, have been you worried that your food would run out before you had money to buy more?: never true In the past 12 mos, the food you bought just didn't last and you didn't have money to buy more?: never true Highest level of school completed/degree received: Master's degree Smoking Status: Never smoker Do you use any of these nicotine containing products: None Second hand tobacco smoke exposure: Yes (In early life) How often do you have a drink containing alcohol: 4 or more times a week Alcohol type: hard liquor How many standard drinks containing alcohol do you have on a typical day: 1 or 2 How often do you have six or more drinks on one occasion: Never AUDIT-C Alcohol total score: 4 Non-prescribed substance use: denies use Caffeine: Yes (One cup of tea a day) Are you now , , , , never or living with a partner: Social isolation score (0-1 are the most socially isolated patients): 1 How often does anyone, including family, friends and others, physically hurt you : never How often does anyone, including family, friends and others, insult or talk down to you: rarely How often does anyone, including family, friends and others, threaten you with harm: never How often does anyone, including family, friends and others, scream or curse at you: never service: No Health Related Social Needs: Other personal risk factors, not elsewhere classified (Z91.89) Exam Narrative: Exam Narrative: Constitutional: Appears well-developed and well-nourished. Alert. Conversant and polite. Non toxic. He speaking full sentences. He was 87% on room air so is now on 2 L nasal cannula. HENT: Head: Atraumatic. Nose: Nose normal. Mouth/Throat: Oral mucosa is clear and moist. no trismus. Pharynx normal. Tonsils symmetric. No tonsillar enlargement, erythema, or exudate. Eyes: Conjunctivae normal. EOM normal. Pupils equal, round, and reactive to light. No scleral icterus. Neck: Normal range of motion. Neck supple. No tracheal deviation present. No JVD Cardiovascular: Normal rate, regular rhythm. No gallop. No friction rub. No murmur heard. Symmetric radial artery pulses Pulmonary/Chest: Effort normal but has pain with deep breathing for auscultation. No stridor. No respiratory distress. No wheezes. No rales. No rhonchi . No crepitus. No tenderness. Abdominal: Soft. No distension. No mass. No tenderness. No rebound. No guarding. Musculoskeletal: RUE: Normal range of motion. No tenderness. No deformity LUE: Normal range of motion. No tenderness. No deformity RLE: Normal range of motion. No edema. No tenderness. No deformity LLE: Normal range of motion. No edema. No tenderness. No deformity Neurological: Alert and oriented to person, place, and time. Normal strength. CN II-VII intact. No sensory deficit. GCS eye subscore is 4. GCS verbal subscore is 5. GCS motor subscore is 6. Normal coordination Skin: Skin is warm and dry. No rash noted. No pallor. Normal capillary refill. Psychiatric: Normal mood. Normal affect. Const: Vital Signs, click to edit/add: Vital Signs - 24 hr 09/20/24 16:09 09/20/24 16:10 09/20/24 16:14 Temperature 98.4 F Pulse Rate [Pulse Oximeter] 85 Respiratory Rate 18 Blood Pressure [Ri t Upper Arm] 169/90 H Pulse Oximetry 87 L 87 L 93 Oxygen Delivery Me thod Room Air Room Air Nasal Cannula Oxygen Flow Rate 2 09/20/24 16:36 09/20/24 19:00 09/20/24 19:05 Temperature Pulse Rate [Pulse Oximeter] 63 Respiratory Rate 18 Blood Pressure [Ri t Upper Arm] 142/71 H Pulse Oximetry 94 95 92 Oxygen Delivery Me thod Nasal Cannula Room Air Oxygen Flow Rate 1.5 09/20/24 20:13 Temperature 98.4 F Pulse Rate [Pulse Oximeter] 66 Respiratory Rate 18 Blood Pressure [Ri t Upper Arm] 135/68 Pulse Oximetry 95 Oxygen Delivery Me thod Nasal Cannula Oxygen Flow Rate 2 Course Vital Signs Vital signs: Initial Vital Signs Pulse Oximetry 87 L 09/20/24 16:09 Oxygen Delivery Method Room Air 09/20/24 16:09 Vital Signs Pulse Oximetry 87 L 09/20/24 16:09 Oxygen Delivery Method Room Air 09/20/24 16:09 Temperature 98.2 F 09/21/24 00:09 Pulse Rate 65 09/21/24 00:09 Respiratory Rate 18 09/21/24 00:09 Blood Pressure 147/82 H 09/21/24 00:09 Pulse Oximetry 93 09/21/24 00:09 Oxygen Delivery Method Room Air 09/21/24 00:09 Oxygen Flow Rate 2 09/20/24 20:13 Medications Administered Medications: Generic Name Dose Route Start Last Admin Trade Name Freq PRN Reason Stop Dose Admin Lidocaine 1 patch 09/20/24 20:45 09/20/24 22:51 Lidocaine 5% Patch TRANSDERMA 1 patch Q12H YANG Administration Protocol Oxycodone HCl 2.5 - 5 mg 09/20/24 20:43 09/20/24 22:47 Oxycodone 5 Mg Tablet PO 5 mg Q4H PRN Administration Pain Sodium Chloride 5 ml 09/20/24 21:00 09/20/24 22:48 Sodium Chloride 0.9 % (Flush) 10 Ml Syringe IVF 5 ml BID YANG Administration Medical Decision Making MDM Narrative Medical decision making narrative: This is a very pleasant 89-year-old gentleman who returns to the ER today by EMS. He had a fall 2 days ago when he was postop at [facility] after a left arm and left axillary lymph nodes surgery done for melanoma. He was seen in the ER yesterday and diagnosed with 3 left-sided rib fractures. He felt able to discharge home yesterday but has had pain uncontrolled by oxycodone. He is not able to get out of bed and has too much pain with breathing so is now feeling short of breath. Workup here in the ER include repeat chest x-ray which read demonstrates the previously known fractures. Fortunately the x-ray does not show any sign of evolving pleural effusion or hemothorax, pneumothorax, or other life-threatening complication of his rib fractures. X-ray does show subtle atelectasis. I think this is related to poor inspiratory effort due to pain. We did recheck labs in his acute kidney injury from yesterday is now improving. CBC shows stable hemoglobin. At this point I do not think he needs reimaging with CT. He is hypoxic today with sats in the high 80s and up to around 90% while on room air. He is doing well on 2 L nasal cannula. Given his age and the presence of 3 continues rib fractures I strongly recommend hospitalization for pain management and monitoring and pulmonary toilet. Reluctantly, the patient agrees. His wholeheartedly agrees with hospitalization. [place] [facility] [place] transfer to a level 1 trauma center given the presence of 3 continues rib fractures. The patient and his strongly do not want transfer and they want to stay here in [place]. I discussed with our general surgeon, Dr. Garcia. She reiterates the [facility] trauma guidelines and recommends transfer. However, if the patient refuses transfer, she and I agree that it would be better for him to be hospitalized here in [place] then to be discharged home again. Dr. Garcia will consult and follow along with hospitalist, if they agree to admit. Discussed with our hospitalist, Dr. Saman quinones who graciously agrees to admit. She did consult with her general manager land department in this case, given the variation from guideline based practice. She ultimately would agree to admit the patient to the CCU here for monitoring. Patient is advised that if the condition does worsen he may ultimately require transfer Lab Data Labs: Lab Results 09/20/24 Range/Units 17:00 WBC 7.87 (4.50-11.00) K/uL RBC 4.00 L (4.30-5.90) m/uL Hgb 11.9 L (13.5-17.5) gm/dL Hct 37.5 (37.0-53.0) % MCV 94 (80-100) fL MCH 30 (26-34) pg MCHC 32 (32-36) gm/dL RDW Coeff of Heather 14.3 (11.5-15.5) % Plt Count 217 (140-440) K/uL Neut % (Auto) 65.1 (42.0-72.0) % Lymph % (Auto) 22.0 (20-44) % [place] % (Auto) 11.3 H (0.0-11.0) % Eos % (Auto) 0.9 (0.0-7.0) % Baso % (Auto) 0.6 (0.0-3.0) % Neut # (Auto) 5.12 (1.7-7.0) K/uL Lymph # (Auto) 1.73 (0.90-2.90) K/uL [place] # (Auto) 0.90 (0.00-0.90) K/UL Eos # (Auto) 0.07 (0.00-0.50) K/uL Baso # (Auto) 0.05 (0.00-0.30) K/uL Abs Immat Gran (auto) 0.01 (0.00-0.30) K/uL Imm/Tot Granulo (auto) 0.1 % Sodium 139 (135-149) mmol/L Potassium 4.2 (3.6-5.1) mmol/L Chloride 106 (96-114) mmol/L Carbon Dioxide 24 (20-32) mmol/L Anion Gap 9 (7-15) mEq/L BUN 20 (7-30) mg/dL Creatinine 1.0 (0.5-1.5) mg/dL Estimated Creat Clear 52.72 Estimated GFR 72 ml/min Glucose 98 (60-115) mg/dL Calcium 9.5 (8.4-10.6) mg/dL Imaging Data Chest x-ray: Attestation: I have reviewed the pertinent imaging results. My impression: no PNTX. no PNA. Can see 2 of the 3 known fractures. Radiologist's impression: Impression: Mild bibasilar opacities are favored to represent atelectasis. Known left-sided rib fractures are better seen on preceding CT. Discharge Plan Discharge Clinical Impression: Multiple rib fractures, Hypoxia Patient Disposition: Admitted As Observation
--- NOTE | 2024-09-20 16:19 | CRLHL7_ITS ---
For Patients: As a result of the Century Cures Act, medical imaging exams and procedure reports are released immediately into your electronic medical record. You may view this report before your referring provider. If you have questions, please contact your health care provider. Indication: chest pain is worse, dyspnea. known L 9,10,11 rib fxs Technique: PA and lateral views of the chest. Comparison: 09/19/2024. Findings: Moderately elevated right hemidiaphragm. Mildly enlarged cardiomediastinal silhouette with calcified aortic knob. Mild bibasilar opacities. Moderate degenerative changes of the visualized spine. Known left-sided rib fractures are better seen on preceding CT. Trace left pleural effusion. Impression: Mild bibasilar opacities are favored to represent atelectasis. Known left-sided rib fractures are better seen on preceding CT. Dictated by Luis M Dominguez MD @ 09/20/2024 5:05:10 PM (Electronically Signed)
[2024-09-20 17:12] LABS: Hematocrit 37.5 % (37.0-53.0); Hemoglobin* 11.9 gm/dL (13.5-17.5); Immature Granulocytes Abs Auto 0.01 K/uL (0.00-0.30); Immature Granulocytes Pct Auto 0.1 %; Lymphocytes Absolute Auto 1.73 K/uL (0.90-2.90); Mean Corpuscular HGB Conc 32 gm/dL (32-36); Mean Corpuscular Hemoglobin 30 pg (26-34); Mean Corpuscular Volume 94 fL (80-100); RDW Coefficient of Variation % 14.3 % (11.5-15.5); Red Blood Count 4.00 m/uL (4.30-5.90); White Blood Count* 7.87 K/uL (4.50-11.00)
[2024-09-20 17:15] LABS: Slide Review Reflex No
[2024-09-20 17:26] LABS: Chloride* 106 mmol/L (96-114); Sodium* 139 mmol/L (135-149)
[2024-09-20 17:27] LABS: Potassium* 4.2 mmol/L (3.6-5.1)
[2024-09-20 17:29] LABS: Blood Urea Nitrogen* 20 mg/dL (7-30); Creatinine* 1.0 mg/dL (0.5-1.5); Est. Creatinine Clearance* 52.72; Estimated Glomerular Filt Rate 72 ml/min
[2024-09-20 17:30] LABS: Anion Gap 9 mEq/L (7-15); Calcium* 9.5 mg/dL (8.4-10.6); Carbon Dioxide* 24 mmol/L (20-32); Glucose* 98 mg/dL (60-115)
--- NOTE | 2024-09-20 22:07 | PM.IMHP1 ---
Assessment and Plan Assessment and plan (1) Multiple rib fractures: Problem comment: Mechanical fall on 09/18 striking left side of chest and sustained nondisplaced 9th rib fracture and mildly displaced fractures of ribs 10 and 11. Now with increased SOB and pain. CXR with atelectasis and patient is splinting. -Admit to ICU, continuous pulse ox and cardiac monitoring -Surgery consult appreciated -Respiratory to see -Encourage pulmonary toilet, IS use -Lidoderm patch continuously -Oxycodone -If creatinine remains stable in AM, recommend starting NSAIDs, pushing fluids Status: Acute (2) Hypoxia: Problem comment: Suspect due to atelectasis from rib fractures. Not consistent with pneumonia Status: Acute (3) History of TIA (transient ischemic attack): Problem comment: admitted here in 04/14; plavix x 6mo (no longer on), aspirin for life Status: Acute (4) BPH (benign prostatic hyperplasia): Problem comment: tamsulosin 0.4mg BID Status: Acute (5) Hyperthyroidism: Problem comment: - on methimazole 2.5 mg once daily Status: Acute (6) Malignant melanoma: Problem comment: Resection of 2 skin lesions on 09/[address]inel LN removal. Path pending Status: Acute Hospitalist- H&P: HPI History of Present Illness Date Seen: 09/20/24 Chief complaint: Pain Narrative: Minh Scales is a 89 year old male with HTN, prior TIA, BPH, TOMAS, malignant melanoma s/p recent resection on 09/18, kidney stones and hyperthyroidism on methimazole who presented to the ER with worsening left chest wall pain. Patient underwent melanoma resection on left shoulder and arm as well as senitnel LN removal at [facility] on 09/18. Prior to leaving the hospital he had a mechanical fall striking his chest on the edge of a commode. He did not have significant pain and was allowed to discharge without further assessment. On 09/19 he noted more pain in the right lower chest/flank and was evaluated at , found to have 3 contiguous rib fractures and sent to our ER. He had a CT which confirmed nondisplaced 9th rib fracture and mildly displaced fractures of ribs 10 and 11. There was some intrathoracic air noted on the left, but this was felt to be consistent with his surgical procedure on Wednesday. At that time, he had no shortness of breath and felt pain was well controlled so he was discharged to home after lengthy discussion and strict return precautions. He was also noted to have elevated creatinine at 1.6 (baseline 1.0-1.3). This morning, he was not able to get out of bed secondary to pain so he returned to the ER for further evaluation. He tried taking oxycodone at home which was not terribly effective. He has also developed some shortness of breath. Although he has a cough, it is not significantly worse. A repeat CXR today shows some new bibasilar atelectasis which likely represents some atelectasis. Patient is wearing an abdominal binder/brace which has helped him splint the lower chest making breathing more comfortable. We discussed trying to avoid splinting and that pain medications should be used to insure he is comfortable enough to take deeper breaths and do incentive spirometry. Per trauma guidelines, patient would be most appropriate for admission to ICU at a facility with trauma surgery consultation, but patient and family strongly favored remaining at [facility]. They understand that remaining here may not be standard of care and if he clinically worsens we would certainly encourage transfer to a higher level of care. Since his vital signs are largely appropriate and he is only requiring a small amount of supplemental O2, I think it is reasonable to see if he could improve here with pain control and pulmonary toilet. General surgery has agreed to be available for consultation, as well. Review of Systems Status of ROS: Reports: 10 or more systems reviewed and unremarkable except as noted in History and below Medical Decision Making Medical Decision Making Has patient completed a Health Care Directive: Yes [facility] Medical History Accidental fall on or from stairs or steps ?W10.8XXA - Fall (on) (from) other stairs and steps, initial encounter (ICD-10) TIA (transient ischemic attack) (04/01/23) ?G45.9 - Transient cerebral ischemic attack, unspecified (ICD-10) Hyperlipidemia (04/29/06) ?E78.5 - Hyperlipidemia, unspecified (ICD-10) BPH (benign prostatic hyperplasia) (04/29/06) ?N40.0 - Benign prostatic hyperplasia without lower urinary tract symptoms (ICD-10) Bladder stones (03/31/18) ?N21.0 - Calculus in bladder (ICD-10) Vitamin D deficiency (02/12/14) ?E55.9 - Vitamin D deficiency, unspecified (ICD-10) Subclinical hyperthyroidism (03/02/22) ?E05.90 - Thyrotoxicosis, unspecified without thyrotoxic crisis or storm (ICD-10) Sensorineural hearing loss, 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) ?H90.3 - Sensorineural hearing loss, bilateral (ICD-10) TOMAS (obstructive sleep apnea) (06/19/12) ?G47.33 - Obstructive sleep apnea (adult) (pediatric) (ICD-10) Hydrocele, unspecified (02/23/11) ?N43.3 - Hydrocele, unspecified (ICD-10) HTN, goal below 140/90 (04/08/11) ?I10 - Essential (primary) hypertension (ICD-10) Elevated coronary artery calcium score (03/02/22) ?R93.1 - Abnormal findings on diagnostic imaging of heart and coronary circulation (ICD-10) Depression, recurrent (03/12/23) ?F33.9 - Major depressive disorder, recurrent, unspecified (ICD-10) Arterial hypotension (05/25/23) ?I95.9 - Hypotension, unspecified (ICD-10) Mild depression ?F32.A - Depression, unspecified (ICD-10) Hyperthyroidism ?E05.90 - Thyrotoxicosis, unspecified without thyrotoxic crisis or storm (ICD-10) Nephrolithiasis ?N20.0 - Calculus of kidney (ICD-10) History of TIA (transient ischemic attack) ?Z86.73 - Personal history of transient ischemic attack (TIA), and cerebral infarction without residual deficits (ICD-10) BPH (benign prostatic hyperplasia) ?N40.0 - Benign prostatic hyperplasia without lower urinary tract symptoms (ICD-10) Hyperlipidemia ?E78.5 - Hyperlipidemia, unspecified (ICD-10) Rupture of left biceps tendon ?S46.212A - Strain of muscle, fascia and tendon of other parts of biceps, left arm, initial encounter (ICD-10) Osteoarthritis of left shoulder ?M19.012 - Primary osteoarthritis, left shoulder (ICD-10) Rotator cuff tear, left ?M75.102 - Unspecified rotator cuff tear or rupture of left shoulder, not specified as traumatic (ICD-10) Urinary retention due to benign prostatic hyperplasia ?N40.1 - Benign prostatic hyperplasia with lower urinary tract symptoms (ICD-10) ?R33.8 - Other retention of urine (ICD-10) Sepsis ?A41.9 - Sepsis, unspecified organism (ICD-10) Escherichia coli urinary tract infection ?N39.0 - Urinary tract infection, site not specified (ICD-10) ?B96.20 - Unspecified Escherichia coli [E. coli] as the cause of diseases classified elsewhere (ICD-10) Encounter for counseling regarding advance directives (10/19/16) ?Z71.89 - Other specified counseling (ICD-10) Calculus of urinary bladder ?N21.0 - Calculus in bladder (ICD-10) History of bladder stone ?Z87.448 - Personal history of other diseases of urinary system (ICD-10) Surgical History S/P tendon repair (05/28/24) ?Z98.890 - Other specified postprocedural states (ICD-10) History of arthroscopy of right shoulder ?Z98.890 - Other specified postprocedural states (ICD-10) History of hernia repair ?Z98.890 - Other specified postprocedural states (ICD-10) ?Z87.19 - Personal history of other diseases of the digestive system (ICD-10) History of arthroscopy of left shoulder (12/25/08) ?Z98.890 - Other specified postprocedural states (ICD-10) Family History Mother Pancreatic cancer Social History What is your current living situation?: I presently have a place to live Problems where you live: no known problems Problems where you live details: none In the past 12 months, utilities in danger of being shut off: no In past 12 months, lack of transportation kept you from medical appts, meetings, work, or getting things needed for daily living: no In the past 12 mos, have been you worried that your food would run out before you had money to buy more?: never true In the past 12 mos, the food you bought just didn't last and you didn't have money to buy more?: never true Highest level of school completed/degree received: Master's degree Smoking Status: Never smoker Do you use any of these nicotine containing products: None Second hand tobacco smoke exposure: No How often do you have a drink containing alcohol: 4 or more times a week Alcohol type: beer and hard liquor How many standard drinks containing alcohol do you have on a typical day: 1 or 2 How often do you have six or more drinks on one occasion: Daily or almost daily AUDIT-C Alcohol total score: 8 Non-prescribed substance use: denies use Caffeine: Yes (1 cup of tea or 1 pop a day) Are you now , , , , never or living with a partner: Social isolation score (0-1 are the most socially isolated patients): 1 How often does anyone, including family, friends and others, physically hurt you: never How often does anyone, including family, friends and others, insult or talk down to you: never How often does anyone, including family, friends and others, threaten you with harm: never How often does anyone, including family, friends and others, scream or curse at you: never service: No Meds Home Medications and Allergies Home Medications ?Medication ?Instructions ?Recorded ?Confirmed ?Type calcium carbonate (Calcium 600) 600 mg PO DAILY 10/27/21 09/19/24 History cholecalciferol (vitamin D3) 25 1,000 unit PO DAILY 10/27/21 09/19/24 History mcg (1,000 unit) capsule methimazole 5 mg tablet 2.5 mg PO DAILY 10/27/21 09/19/24 History tamsulosin 0.4 mg capsule 0.4 mg PO BID 10/27/21 09/19/24 History vit C 250 mg-vit E 90 mg-zinc 40 1 tab PO DAILY 12/17/21 09/19/24 History mg-copper 1 [id number] capsule (PreserVision AREDS-2) aspirin 81 mg chewable tablet 81 mg PO DAILY #90 tabs 03/25/23 09/19/24 Rx ([facility]in) Held on 05/28/24. Instructions: Resume on 06/28/24. take twice a day for a month, then back to once a day clopidogrel 75 mg tablet 75 mg PO DAILY #30 tabs 03/25/23 09/19/24 Rx simvastatin 20 mg tablet 20 mg PO HS #30 tabs 03/25/23 09/19/24 Rx acetaminophen 650 mg 1,300 mg (2 x 650 mg) PO Q8H #90 05/28/24 09/19/24 Rx tablet,extended release tabs aspirin 81 mg chewable tablet 81 mg PO BID #60 tabs 05/28/24 09/19/24 Rx ([facility] Aspirin) sertraline 25 mg tablet 25 mg PO QAM 05/28/24 09/19/24 History ibuprofen 200 mg capsule 200 mg PO Q6H PRN 07/11/24 09/19/24 History oxycodone 5 mg tablet 5 mg PO pain 09/20/24 History Allergies Allergy/AdvReac Type Severity Reaction Status Date / Time Fish Containing Products Allergy Unknown Verified 09/19/24 14:49 lisinopril Allergy Unknown Cough Verified 09/19/24 14:49 Sulfa (Sulfonamide Allergy Unknown Verified 09/19/24 14:49 Antibiotics) Exam Narrative: Exam Narrative: General: Appears younger than stated age, no distress resting in bed HEENT: NCAT Resp: Breathing is unlabored, but patient is splinting left lower chest and not taking deep inspirations. Lungs are diminished in the bilateral bases CV: RRR, S4 gallop present (patient reports has always had) Abd: Binder in place, not removed Extremities: No edema Neuro: Nonfocal, no laterlizing deficits Const: Vital Signs, click to edit/add: Vital Signs - 24 hr 09/20/24 16:09 09/20/24 16:10 09/20/24 16:14 Temperature 98.4 F Pulse Rate [Pulse Oximeter] 85 Respiratory Rate 18 Blood Pressure [Ri ght Upper Arm] 169/90 H Pulse Oximetry 87 L 87 L 93 Oxygen Delivery Me thod Room Air Room Air Nasal Cannula Oxygen Flow Rate 2 09/20/24 16:36 09/20/24 19:00 09/20/24 19:05 Temperature Pulse Rate [Pulse Oximeter] 63 Respiratory Rate 18 Blood Pressure [Ri ght Upper Arm] 142/71 H Pulse Oximetry 94 95 92 Oxygen Delivery Me thod Nasal Cannula Room Air Oxygen Flow Rate 1.5 09/20/24 20:13 Temperature 98.4 F Pulse Rate [Pulse Oximeter] 66 Respiratory Rate 18 Blood Pressure [Ri ght Upper Arm] 135/68 Pulse Oximetry 95 Oxygen Delivery Me thod Nasal Cannula Oxygen Flow Rate 2 Hospitalist - H&P: Result Labs Labs: Short CBC 09/20/24 Range/Units 17:00 WBC 7.87 (4.50-11.00) K/uL Hgb 11.9 L (13.5-17.5) gm/dL Hct 37.5 (37.0-53.0) % Plt Count 217 (140-440) K/uL BMP 09/20/24 17:00 Sodium 139 Potassium 4.2 Chloride 106 Carbon Dioxide 24 BUN 20 Creatinine 1.0 Glucose 98 Calcium 9.5
[2024-09-20] MEDS: SODIUM CHLORIDE 0.9 % (FLUSH) 10 ML SYRINGE 5 ML IVF (22:48)
[2024-09-20] MEDS: LIDOCAINE 5% PATCH 1 PATCH TRANSDERMA (22:51)
[2024-09-21] VITALS (20 sets, daily range): BP systolic 110–191; BP diastolic 54–98; PULSE 65–95; RESP 14–22; TEMP 36.6–37.2; O2SAT 85–94
[2024-09-21 06:37] LABS: Chloride* 104 mmol/L (96-114)
[2024-09-21 06:38] LABS: Potassium* 4.3 mmol/L (3.6-5.1); Sodium* 136 mmol/L (135-149)
[2024-09-21 06:40] LABS: Blood Urea Nitrogen* 16 mg/dL (7-30); Creatinine* 0.9 mg/dL (0.5-1.5); Est. Creatinine Clearance* 52.72; Estimated Glomerular Filt Rate 82 ml/min
[2024-09-21 06:41] LABS: Anion Gap 6 mEq/L (7-15); Calcium* 9.2 mg/dL (8.4-10.6); Carbon Dioxide* 26 mmol/L (20-32); Glucose* 105 mg/dL (60-115)
--- NOTE | 2024-09-21 07:25 | PC.NURSE ---
Patient arrived to the unit via wheelchair and was transferred to the bed via stand and pivot. Significantly weak of strength. Requires PT assessment before ambulation over any distance. Weak not only of legs but of arms. Hands tremble with use. He takes a while to respond to questions or when in conversation. Vitally he has remained stable overnight as well as alert and oriented. He was sitting at 88 for a while when deeply asleep and so a nasal canula was applied at 1 L. Saturating in the 90-94 range since. Three incisions from recent surgery. One on the upper left shoulder, one on the upper left arm, and one below the arm pit. These dressings were changed at shift start. A large amount of serosanguineous discharge was on the upper left arm dressing at time of change. All wounds appear healthy. This left arm is a Do Not Use due to lymph node removal. No signs of swelling. Lung sounds clear. S3 heart sounds and an irregular rhythm. Abdominal brace in place. Pain is located in the lower left rib area, almost onto the back. While at rest his discomfort sits at 1-2, dull pain. But he has episodes of spastic, intense pain he describes as similar to a cramp on this same area which is very difficult to bear. 10/10 pain during these times. So far as , he urinates with great urgency. A urinal is in place next to his bed. He has been educated on the need to notify us as to when he needs to urinate for us to potentially help, he has unsteady hands, as well as to empty the urinal and for safely. No need to stool overnight.?Vitally stable at time of discharge.?
[2024-09-21] MEDS: TAMSULOSIN HCL 0.4 MG CAPSULE PO ×2 (09:05→20:36)
[2024-09-21] MEDS: SODIUM CHLORIDE 0.9 % (FLUSH) 10 ML SYRINGE 5 ML IVF ×3 (09:06→20:36)
[2024-09-21] MEDS: LIDOCAINE 5% PATCH 1 PATCH TRANSDERMA ×2 (09:27→14:15)
[2024-09-21] MEDS: ALBUTEROL SULFATE 2.5 MG/3 ML VIAL.NEB NEB ×2 (10:44→17:48)
--- NOTE | 2024-09-21 10:53 | PM.GSCN ---
History of Present Illness Consult details Date Seen: 09/21/24 Consult date: 09/21/24 Narrative: 89-year-old male was admitted to the hospital with left-sided rib fractures and I was asked by Renato Govea to see him in consultation. 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 While going to the bathroom, patient fell and landed on the commode with his left side of his chest. He was discharged home but presented to [facility] with pain in the left chest. Patient did not lose consciousness. He did not hit anything else and did not hit his head. Upon his workup patient had CT chest abdomen and pelvis on 09/19/2024. CT showed 3 rib fractures on the left with subcutaneous air on the left. There was no evidence of pneumothorax or hemothorax. 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 Patient was initially sent home from the emergency room but came back because his pain was not controlled with pain medication. Patient was also found to have desaturations below 90. Patient complains of pain in the left posterior flank that is worse than his melanoma incisions. Patient denies abdominal pain. His last bowel movement was on Wednesday. His denies shortness of breath but when he coughs, he is having spasms in his chest. Review of Systems Narrative: General: no fevers HENT: no problems swallowing CV: no shortness of breath Resp: no cough GI: No nausea, vomiting, abdominal pain : no dysuria, no increased urinary frequency, no hematuria Skin: no new rashes Musculoskeletal: no back pain Neuro: no muscle weakness Psyche: no depression, no anxiety [facility] Medical History Accidental fall on or from stairs or steps ?W10.8XXA - Fall (on) (from) other stairs and steps, initial encounter (ICD-10) TIA (transient ischemic attack) (04/01/23) ?G45.9 - Transient cerebral ischemic attack, unspecified (ICD-10) Hyperlipidemia (04/29/06) ?E78.5 - Hyperlipidemia, unspecified (ICD-10) BPH (benign prostatic hyperplasia) (04/29/06) ?N40.0 - Benign prostatic hyperplasia without lower urinary tract symptoms (ICD-10) Bladder stones (03/31/18) ?N21.0 - Calculus in bladder (ICD-10) Vitamin D deficiency (02/12/14) ?E55.9 - Vitamin D deficiency, unspecified (ICD-10) Subclinical hyperthyroidism (03/02/22) ?E05.90 - Thyrotoxicosis, unspecified without thyrotoxic crisis or storm (ICD-10) Sensorineural hearing loss, 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) ?H90.3 - Sensorineural hearing loss, bilateral (ICD-10) TOMAS (obstructive sleep apnea) (06/19/12) ?G47.33 - Obstructive sleep apnea (adult) (pediatric) (ICD-10) Hydrocele, unspecified (02/23/11) ?N43.3 - Hydrocele, unspecified (ICD-10) HTN, goal below 140/90 (04/08/11) ?I10 - Essential (primary) hypertension (ICD-10) Elevated coronary artery calcium score (03/02/22) ?R93.1 - Abnormal findings on diagnostic imaging of heart and coronary circulation (ICD-10) Depression, recurrent (03/12/23) ?F33.9 - Major depressive disorder, recurrent, unspecified (ICD-10) Arterial hypotension (05/25/23) ?I95.9 - Hypotension, unspecified (ICD-10) Mild depression ?F32.A - Depression, unspecified (ICD-10) Hyperthyroidism ?E05.90 - Thyrotoxicosis, unspecified without thyrotoxic crisis or storm (ICD-10) Nephrolithiasis ?N20.0 - Calculus of kidney (ICD-10) History of TIA (transient ischemic attack) ?Z86.73 - Personal history of transient ischemic attack (TIA), and cerebral infarction without residual deficits (ICD-10) BPH (benign prostatic hyperplasia) ?N40.0 - Benign prostatic hyperplasia without lower urinary tract symptoms (ICD-10) Hyperlipidemia ?E78.5 - Hyperlipidemia, unspecified (ICD-10) Rupture of left biceps tendon ?S46.212A - Strain of muscle, fascia and tendon of other parts of biceps, left arm, initial encounter (ICD-10) Osteoarthritis of left shoulder ?M19.012 - Primary osteoarthritis, left shoulder (ICD-10) Rotator cuff tear, left ?M75.102 - Unspecified rotator cuff tear or rupture of left shoulder, not specified as traumatic (ICD-10) Urinary retention due to benign prostatic hyperplasia ?N40.1 - Benign prostatic hyperplasia with lower urinary tract symptoms (ICD-10) ?R33.8 - Other retention of urine (ICD-10) Sepsis ?A41.9 - Sepsis, unspecified organism (ICD-10) Escherichia coli urinary tract infection ?N39.0 - Urinary tract infection, site not specified (ICD-10) ?B96.20 - Unspecified Escherichia coli [E. coli] as the cause of diseases classified elsewhere (ICD-10) Encounter for counseling regarding advance directives (10/19/16) ?Z71.89 - Other specified counseling (ICD-10) Calculus of urinary bladder ?N21.0 - Calculus in bladder (ICD-10) History of bladder stone ?Z87.448 - Personal history of other diseases of urinary system (ICD-10) Surgical History S/P tendon repair (05/28/24) ?Z98.890 - Other specified postprocedural states (ICD-10) History of arthroscopy of right shoulder ?Z98.890 - Other specified postprocedural states (ICD-10) History of hernia repair ?Z98.890 - Other specified postprocedural states (ICD-10) ?Z87.19 - Personal history of other diseases of the digestive system (ICD-10) History of arthroscopy of left shoulder (12/25/08) ?Z98.890 - Other specified postprocedural states (ICD-10) Family History Mother Pancreatic cancer Social History What is your current living situation?: I presently have a place to live Problems where you live: no known problems Problems where you live details: NA In the past 12 months, utilities in danger of being shut off: no In past 12 months, lack of transportation kept you from medical appts, meetings, work, or getting things needed for daily living: no In the past 12 mos, have been you worried that your food would run out before you had money to buy more?: never true In the past 12 mos, the food you bought just didn't last and you didn't have money to buy more?: never true Highest level of school completed/degree received: Master's degree Smoking Status: Never smoker Do you use any of these nicotine containing products: None Second hand tobacco smoke exposure: Yes (In early life) How often do you have a drink containing alcohol: 4 or more times a week Alcohol type: hard liquor How many standard drinks containing alcohol do you have on a typical day: 1 or 2 How often do you have six or more drinks on one occasion: Never AUDIT-C Alcohol total score: 4 Non-prescribed substance use: denies use Caffeine: Yes (One cup of tea a day) Are you now , , , , never or living with a partner: Social isolation score (0-1 are the most socially isolated patients): 1 How often does anyone, including family, friends and others, physically hurt you: never How often does anyone, including family, friends and others, insult or talk down to you: rarely How often does anyone, including family, friends and others, threaten you with harm: never How often does anyone, including family, friends and others, scream or curse at you: never service: No Health Related Social Needs: Other personal risk factors, not elsewhere classified (Z91.89) Meds Home Medications and Allergies Home Medications ?Medication ?Instructions ?Recorded ?Confirmed ?Type calcium carbonate (Calcium 600) 600 mg PO DAILY 10/27/21 09/21/24 History cholecalciferol (vitamin D3) 25 1,000 unit PO DAILY 10/27/21 09/21/24 History mcg (1,000 unit) capsule methimazole 5 mg tablet 2.5 mg PO DAILY 10/27/21 09/21/24 History tamsulosin 0.4 mg capsule 0.4 mg PO BID 10/27/21 09/21/24 History vit C 250 mg-vit E 90 mg-zinc 40 1 tab PO DAILY 12/17/21 09/21/24 History mg-copper 1 [id number] capsule (PreserVision AREDS-2) simvastatin 20 mg tablet 20 mg PO HS #30 tabs 03/25/23 09/21/24 Rx sertraline 25 mg tablet 25 mg PO QAM 05/28/24 09/21/24 History oxycodone 5 mg tablet 5 mg PO Q4H PRN pain 09/20/24 09/21/24 History acetaminophen 500 mg tablet 1,000 mg PO Q6H PRN 09/21/24 09/21/24 History aspirin 325 mg tablet,delayed 325 mg PO DAILY 09/21/24 09/21/24 History release Allergies Allergy/AdvReac Type Severity Reaction Status Date / Time Fish Containing Products Allergy Unknown Verified 09/19/24 14:49 lisinopril Allergy Unknown Cough Verified 09/19/24 14:49 Sulfa (Sulfonamide Allergy Unknown Verified 09/19/24 14:49 Antibiotics) Exam Narrative: Exam Narrative: General appearance: Alert, cooperative, and in no distress Head: No bruising was noted on the face or scalp. The neck midline is not tender to palpation. Pulmonary: Chest symmetric, lungs clear bilaterally Cardiovascular Heart: Regular rate and rhythm, S1, S2, no murmurs/rubs/gallops Gastrointestinal Abdominal: soft, not tender, not distended Extremities: In the left superior lateral shoulder and posterior shoulder there are 2 surgical incisions from patient's melanoma excision. There are nylon sutures in place with no surrounding erythema. Those were covered with gauze and tape. In the left axilla there is moderate amount of postprocedure ecchymosis. Surgical incision is intact with no surrounding erythema concerning for infection. Lower extremities are without bruising and are not tender to palpation. No tenderness to palpation is noted in the right arm or forearm. Back: In the left posterior lateral flank over the lower left ribs there is a subcutaneous none expanding hematoma measuring approximately 7 cm in diameter. Psychiatric: Alert and oriented, cooperative, normal affect. Const: Vital Signs, click to edit/add: Vital Signs - 24 hr 09/20/24 16:09 09/20/24 16:10 09/20/24 16:14 Temperature 98.4 F Pulse Rate Pulse Rate [Left R adial] Pulse Rate [Pulse Oximeter] 85 Pulse Rate [Right Pulse Oximeter] Respiratory Rate 18 Blood Pressure [Ri ght Arm] Blood Pressure [Ri ght Upper Arm] 169/90 H Pulse Oximetry 87 L 87 L 93 Oxygen Delivery Me thod Room Air Room Air Nasal Cannula Oxygen Flow Rate 2 09/20/24 16:36 09/20/24 19:00 09/20/24 19:05 Temperature Pulse Rate Pulse Rate [Left R adial] Pulse Rate [Pulse Oximeter] 63 Pulse Rate [Right Pulse Oximeter] Respiratory Rate 18 Blood Pressure [Ri ght Arm] Blood Pressure [Ri ght Upper Arm] 142/71 H Pulse Oximetry 94 95 92 Oxygen Delivery Me thod Nasal Cannula Room Air Oxygen Flow Rate 1.5 09/20/24 20:13 09/20/24 20:43 09/20/24 20:44 Temperature 98.4 F Pulse Rate Pulse Rate [Left R adial] Pulse Rate [Pulse Oximeter] 66 Pulse Rate [Right Pulse Oximeter] Respiratory Rate 18 Blood Pressure [Ri ght Arm] Blood Pressure [Ri ght Upper Arm] 135/68 Pulse Oximetry 95 90 90 Oxygen Delivery Me thod Nasal Cannula Room Air Oxygen Flow Rate 2 09/20/24 21:16 09/20/24 21:16 09/20/24 22:00 Temperature 98.3 F Pulse Rate 69 Pulse Rate [Left R adial] Pulse Rate [Pulse Oximeter] Pulse Rate [Right Pulse Oximeter] 72 Respiratory Rate 16 Blood Pressure [Ri ght Arm] 181/94 H Blood Pressure [Ri ght Upper Arm] Pulse Oximetry 92 93 Oxygen Delivery Me thod Room Air Room Air Oxygen Flow Rate 09/21/24 00:09 09/21/24 02:00 09/21/24 03:45 Temperature 98.2 F 99 F Pulse Rate 83 Pulse Rate [Left R adial] 65 86 Pulse Rate [Pulse Oximeter] Pulse Rate [Right Pulse Oximeter] Respiratory Rate 18 18 Blood Pressure [Ri ght Arm] 147/82 H 191/98 H Blood Pressure [Ri ght Upper Arm] Pulse Oximetry 93 90 Oxygen Delivery Me thod Room Air Room Air Oxygen Flow Rate 09/21/24 04:05 09/21/24 04:10 09/21/24 06:25 Temperature 98.3 F 99 F Pulse Rate Pulse Rate [Left R adial] Pulse Rate [Pulse Oximeter] Pulse Rate [Right Pulse Oximeter] 68 83 Respiratory Rate 16 14 Blood Pressure [Ri ght Arm] 145/76 H 152/84 H Blood Pressure [Ri ght Upper Arm] Pulse Oximetry 88 93 91 Oxygen Delivery Me thod Room Air Nasal Cannula Nasal Cannula Oxygen Flow Rate 1 1 09/21/24 07:00 09/21/24 07:00 09/21/24 07:00 Temperature 98.8 F Pulse Rate 78 Pulse Rate [Left R adial] 81 Pulse Rate [Pulse Oximeter] Pulse Rate [Right Pulse Oximeter] 81 Respiratory Rate 18 18 Blood Pressure [Ri ght Arm] 138/80 Blood Pressure [Ri ght Upper Arm] Pulse Oximetry 94 Oxygen Delivery Me thod Nasal Cannula Oxygen Flow Rate 1 09/21/24 09:00 Temperature 98.7 F Pulse Rate Pulse Rate [Left R adial] 79 Pulse Rate [Pulse Oximeter] Pulse Rate [Right Pulse Oximeter] Respiratory Rate 20 Blood Pressure [Ri ght Arm] 126/77 Blood Pressure [Ri ght Upper Arm] Pulse Oximetry 91 Oxygen Delivery Me thod Nasal Cannula Oxygen Flow Rate 1 Results Labs Labs: Abnormal lab results 09/20/24 09/21/24 Range/Units 17:00 06:10 RBC 4.00 L (4.30-5.90) m/uL Hgb 11.9 L (13.5-17.5) gm/dL Merrick % (Auto) 11.3 H (0.0-11.0) % Anion Gap 6 L (7-15) mEq/L Diabetes panel 09/20/24 09/21/24 Range/Units 17:00 06:10 Sodium 139 136 (135-149) mmol/L Potassium 4.2 4.3 (3.6-5.1) mmol/L Chloride 106 104 (96-114) mmol/L Carbon Dioxide 24 26 (20-32) mmol/L BUN 20 16 (7-30) mg/dL Creatinine 1.0 0.9 (0.5-1.5) mg/dL Glucose 98 105 (60-115) mg/dL Calcium 9.5 9.2 (8.4-10.6) mg/dL Calcium panel 09/20/24 09/21/24 Range/Units 17:00 06:10 Calcium 9.5 9.2 (8.4-10.6) mg/dL Pituitary panel 09/20/24 09/21/24 Range/Units 17:00 06:10 Sodium 139 136 (135-149) mmol/L Potassium 4.2 4.3 (3.6-5.1) mmol/L Chloride 106 104 (96-114) mmol/L Carbon Dioxide 24 26 (20-32) mmol/L BUN 20 16 (7-30) mg/dL Creatinine 1.0 0.9 (0.5-1.5) mg/dL Glucose 98 105 (60-115) mg/dL Calcium 9.5 9.2 (8.4-10.6) mg/dL Adrenal panel 09/20/24 09/21/24 Range/Units 17:00 06:10 Sodium 139 136 (135-149) mmol/L Potassium 4.2 4.3 (3.6-5.1) mmol/L Chloride 106 104 (96-114) mmol/L Carbon Dioxide 24 26 (20-32) mmol/L BUN 20 16 (7-30) mg/dL Creatinine 1.0 0.9 (0.5-1.5) mg/dL Glucose 98 105 (60-115) mg/dL Calcium 9.5 9.2 (8.4-10.6) mg/dL All other labs normal. Progress Note:A&P Assessment and plan (1) Fracture of rib: Status: Acute Plan 89-year-old male admitted to the hospital for pain control after a fall from standing with 3 rib fractures. It was discussed with the patient and his that patients with consecutive 3 fractures usually transfer to trauma center. Patient refused and was admitted to our hospital. Patient is on 1 L of oxygen. I discussed with him to do incentive spirometry and to trying walk as much as possible with a walker. Patient should work with physical therapy to get stronger. Will continue with pain control with narcotic pain medications and add Flexeril for muscle spasm. Patient should be started on MiraLax b.i.d. for constipation. No new injuries were found and no new images are recommended.
--- NOTE | 2024-09-21 12:02 | PC.SOCIAL ---
Addendum entered by SHELBY Hu 09/21/24 15:37: Discharge planning: Received email from [facility] stating they can review pt for admit Wednesday with updated information being sent from the hospital if they have a bed available Wednesday. They do not anticipate an opening Wednesday. Called back to and explained that [facility] may not have availability. requested social services designee contact [facility] with the referral as back up to [facility]. Shared with information on the [facility] ratings and where to find more information and left Long-Term resource list in the room for to get when she visits. was appreciative of information provided. automotive production worker secure emailed information to [facility] and will follow up as needed. Original Note: Discharge plans: Met with , Lindy, who shared she wants pt to go to [facility] at discharge for short term rehab care prior to returning home. She is not interested in written information on other facilities or Department of Health ratings. Secure emailed referral for short term rehab admission to [facility] and awaiting decision on admit. automotive production worker to follow up as needed.
--- NOTE | 2024-09-21 12:05 | RESP.RT ---
Patient up in chair, Albuterol Nebulizer given, tolerated fine, respiratory rate 22/minute, EtCO2, 28-30 torr, in line NC at 1 Lpm. Patient is breathing regular, shallow breaths. Assisted Chair change with Patient standing and some walking in place for 1-2 minutes, did well, SaO2 and SaO2 stable. Patient stated he felt fine standing. Post treatment, BBS had slightly more air movement and patient able to take a lager breath. Patient splints left lower chest when asked to cough or deep breath, due 9th, 10th, 11th rib fractures.
[2024-09-21] MEDS: CYCLOBENZAPRINE HCL 10 MG TABLET 5 MG PO ×2 (12:43→20:39)
[2024-09-21] MEDS: ACETAMINOPHEN 325 MG TABLET 650 MG PO ×2 (14:15→19:27)
--- NOTE | 2024-09-21 14:28 | PC.NURSE ---
End of shift report [id number]:Alert and oriented x4, patient is slow with answering questions but is oriented. Pain to left posterior chest wall managed with current regimen. Patient required oxycodone x 2 and dilaudid x 2 along with cyclobenzaprine with moderate relief of pain and muscle spasms. Ice pack applied intermittently as patient tolerates. Evaluated by RT, albuterol nebs odered. Transfers with assist x 1 with gait belt and walker, tolerated activity poorly due to pain and shortness of breath. Lidocaine patch to be placed continuous, at time of patch removal a new patch should be applied, verified with Lulu HAMPTON and pharmacist Jamal Peraza. 3 dressing from prior surgery changed by Dr. Waddell, dressings are clean, dry and intact.
--- NOTE | 2024-09-21 14:52 | PM.IMPN1 ---
Assessment and Plan Assessment and plan (1) Multiple rib fractures: Problem comment: Mechanical fall on 09/18 striking left side of chest and sustained nondisplaced 9th rib fracture and mildly displaced fractures of ribs 10 and 11. Now with increased SOB and pain. CXR with atelectasis and patient is splinting. -Admit to ICU, continuous pulse ox and cardiac monitoring -Surgery consult appreciated -Respiratory to see -Encourage pulmonary toilet, IS use -Lidoderm patch continuously - discussed with pharmacy -Oxycodone -If creatinine remains stable in AM, recommend starting NSAIDs, pushing fluids 09/21 general surgery consulted. Recommending ongoing pain management. Adding Flexeril. MiraLax b.i.d. for stool burden. Adding ibuprofen (creatinine 0.9) scheduled in addition to scheduled Tylenol. Given stability, will transition to med surg floor with close monitoring PT/OT consults business services director for discharge planning/placement needs if necessary Status: Acute (2) Hypoxia: Problem comment: Suspect due to atelectasis from rib fractures. Not consistent with pneumonia Respiratory therapy following. Scheduled albuterol nebs. Improving, continue to wean as able Status: Acute (3) History of TIA (transient ischemic attack): Problem comment: admitted here in 04/14; plavix x 6mo (no longer on), aspirin for life Status: Acute (4) BPH (benign prostatic hyperplasia): Problem comment: tamsulosin 0.4mg BID Status: Acute (5) Hyperthyroidism: Problem comment: - on methimazole 2.5 mg once daily Status: Acute (6) Malignant melanoma: Problem comment: Resection of 2 skin lesions on 09/18 as well as sentinel LN removal. Path pending Status: Acute Plan Acuity is characterized as high and reflected in: On initial evaluation Age greater than 65, 3 rib fractures, respiratory compromise This patient will require hospital services as outlined in the assessment and plan in order to stabilize and be safely discharged to a lower level of care. Because of the risk and acuity as described above, this patient cannot be managed at a lower level of care. Total Time Spent Total Time Spent: Today I spent 75 minutes seeing the patient, reviewing Expanse and EPIC notes/diagnostics, discussing the care plan with our care time that includes social work, PT/OT, pharmacy, RT, usp and documenting my impressions and plan in the medical record. Subjective Date Seen: 09/21/24 Interval history: Patient is seen sitting up in a chair, at bedside. Reports feeling better now than on admission. Still has quite significant pain with any sort of movement. Decreasing supplemental oxygen needs. Respiratory therapy is following. Remains afebrile. Denies headache or dizziness. Tolerating orals without nausea vomiting. Exam Narrative: Exam Narrative: PHYSICAL EXAM General: Pleasant, conversant, NAD HEENT: Normocephalic, atraumatic, sclera white, EOMI, oral mucosa moist Cardiovascular/chest: RRR, S1S2. No pitting edema. Bruising noted left posterior chest secondary to fall Pulmonary: CTA bilaterally without rhonchi, rales, expiratory wheezes. No dyspnea on NC Abdominal: Soft, nondistended, NTTP Neurological: Alert, answering questions appropriately, cranial nerves intact, no focal findings Extremities: No gross joint deformity or swelling. AROMI. Neurovascularly intact Skin: Warm, dry. Const: Vital Signs, click to edit/add: Vital Signs - 24 hr 09/20/24 16:09 09/20/24 16:10 09/20/24 16:14 Temperature 98.4 F Pulse Rate Pulse Rate [Left R adial] Pulse Rate [Pulse Oximeter] 85 Pulse Rate [Right Pulse Oximeter] Respiratory Rate 18 Blood Pressure [Ri ght Arm] Blood Pressure [Ri ght Upper Arm] 169/90 H Pulse Oximetry 87 L 87 L 93 Oxygen Delivery Me thod Room Air Room Air Nasal Cannula Oxygen Flow Rate 2 09/20/24 16:36 09/20/24 19:00 09/20/24 19:05 Temperature Pulse Rate Pulse Rate [Left R adial] Pulse Rate [Pulse Oximeter] 63 Pulse Rate [Right Pulse Oximeter] Respiratory Rate 18 Blood Pressure [Ri ght Arm] Blood Pressure [Ri ght Upper Arm] 142/71 H Pulse Oximetry 94 95 92 Oxygen Delivery Me thod Nasal Cannula Room Air Oxygen Flow Rate 1.5 09/20/24 20:13 09/20/24 20:43 09/20/24 20:44 Temperature 98.4 F Pulse Rate Pulse Rate [Left R adial] Pulse Rate [Pulse Oximeter] 66 Pulse Rate [Right Pulse Oximeter] Respiratory Rate 18 Blood Pressure [Ri ght Arm] Blood Pressure [Ri ght Upper Arm] 135/68 Pulse Oximetry 95 90 90 Oxygen Delivery Me thod Nasal Cannula Room Air Oxygen Flow Rate 2 09/20/24 21:16 09/20/24 21:16 09/20/24 22:00 Temperature 98.3 F Pulse Rate 69 Pulse Rate [Left R adial] Pulse Rate [Pulse Oximeter] Pulse Rate [Right Pulse Oximeter] 72 Respiratory Rate 16 Blood Pressure [Ri ght Arm] 181/94 H Blood Pressure [Ri ght Upper Arm] Pulse Oximetry 92 93 Oxygen Delivery Me thod Room Air Room Air Oxygen Flow Rate 09/21/24 00:09 09/21/24 02:00 09/21/24 03:45 Temperature 98.2 F 99 F Pulse Rate 83 Pulse Rate [Left R adial] 65 86 Pulse Rate [Pulse Oximeter] Pulse Rate [Right Pulse Oximeter] Respiratory Rate 18 18 Blood Pressure [Ri ght Arm] 147/82 H 191/98 H Blood Pressure [Ri ght Upper Arm] Pulse Oximetry 93 90 Oxygen Delivery Me thod Room Air Room Air Oxygen Flow Rate 09/21/24 04:05 09/21/24 04:10 09/21/24 06:25 Temperature 98.3 F 99 F Pulse Rate Pulse Rate [Left R adial] Pulse Rate [Pulse Oximeter] Pulse Rate [Right Pulse Oximeter] 68 83 Respiratory Rate 16 14 Blood Pressure [Ri ght Arm] 145/76 H 152/84 H Blood Pressure [Ri ght Upper Arm] Pulse Oximetry 88 93 91 Oxygen Delivery Me thod Room Air Nasal Cannula Nasal Cannula Oxygen Flow Rate 1 1 09/21/24 07:00 09/21/24 07:00 09/21/24 07:00 Temperature 98.8 F Pulse Rate 78 Pulse Rate [Left R adial] 81 Pulse Rate [Pulse Oximeter] Pulse Rate [Right Pulse Oximeter] 81 Respiratory Rate 18 18 Blood Pressure [Ri ght Arm] 138/80 Blood Pressure [Ri ght Upper Arm] Pulse Oximetry 94 Oxygen Delivery Me thod Nasal Cannula Oxygen Flow Rate 1 09/21/24 09:00 09/21/24 11:00 09/21/24 11:00 Temperature 98.7 F 99.0 F Pulse Rate 80 Pulse Rate [Left R adial] 79 Pulse Rate [Pulse Oximeter] Pulse Rate [Right Pulse Oximeter] 95 Respiratory Rate 20 22 Blood Pressure [Ri ght Arm] 126/77 132/84 Blood Pressure [Ri ght Upper Arm] Pulse Oximetry 91 94 Oxygen Delivery Me thod Nasal Cannula Room Air Oxygen Flow Rate 1 09/21/24 12:02 09/21/24 13:00 Temperature 98.9 F Pulse Rate Pulse Rate [Left R adial] Pulse Rate [Pulse Oximeter] Pulse Rate [Right Pulse Oximeter] 85 Respiratory Rate 22 16 Blood Pressure [Ri ght Arm] 110/75 Blood Pressure [Ri ght Upper Arm] Pulse Oximetry 92 94 Oxygen Delivery Me thod Nasal Cannula Nasal Cannula Oxygen Flow Rate 1 1 Labs Labs: Laboratory Results - last 24 hr 09/20/24 09/21/24 17:00 06:10 WBC 7.87 RBC 4.00 L Hgb 11.9 L Hct 37.5 MCV 94 MCH 30 MCHC 32 RDW Coeff of Heather 14.3 Plt Count 217 Neut % (Auto) 65.1 Lymph % (Auto) 22.0 Creek % (Auto) 11.3 H Eos % (Auto) 0.9 Baso % (Auto) 0.6 Neut # (Auto) 5.12 Lymph # (Auto) 1.73 [place] # (Auto) 0.90 Eos # (Auto) 0.07 Baso # (Auto) 0.05 Abs Immat Gran (auto) 0.01 Imm/Tot Granulo (auto) 0.1 Sodium 139 136 Potassium 4.2 4.3 Chloride 106 104 Carbon Dioxide 24 26 Anion Gap 9 6 L BUN 20 16 Creatinine 1.0 0.9 Estimated Creat Clear 52.72 52.72 Estimated GFR 72 82 Glucose 98 105 Calcium 9.5 9.2
[2024-09-21] MEDS: IBUPROFEN 600 MG TABLET PO (15:19)
[2024-09-21] MEDS: SIMVASTATIN 20 MG TABLET PO (20:38)
--- NOTE | 2024-09-21 22:53 | PC.NURSE ---
End of shift. PT has been very pleasant. he is Alert and oriented x4. pt has pain left ribs that is 3/10 he is getting po pain meds. pain is managed with current regimen. active ice as needed. albuterol nebs given. pt is up with 1 assist walker and GB. Lidocaine patch left back ribs. it is going to be on 24hr changing patches every 12 hours. 3 dressing that are C/D/I with sutures intact. SL is patent. 02 os on 1L nc he also needs o2 with sleep. he is eating, drinking and voiding with no problems. .
[2024-09-22] VITALS (10 sets, daily range): BP systolic 81–130; BP diastolic 51–88; PULSE 60–92; RESP 16–24; TEMP 36.4–36.8; O2SAT 88–96
[2024-09-22] MEDS: ACETAMINOPHEN 325 MG TABLET 650 MG PO ×4 (02:08→19:55)
[2024-09-22] MEDS: LIDOCAINE 5% PATCH 1 PATCH TRANSDERMA ×2 (02:10→13:55)
[2024-09-22] MEDS: ALBUTEROL SULFATE 2.5 MG/3 ML VIAL.NEB NEB ×4 (05:42→23:27)
--- NOTE | 2024-09-22 06:28 | PC.NURSE ---
Shift note ([id number]): Patient pleasant, alert and oriented. Assist of one, walker and gait belt for transfers. Given scheduled Tylenol and lidocaine patch for pain in left low back rated 1-2/10. Repositioned as needed. Pt declined 2300 albuterol neb. 0500 dose administered per orders.?
[2024-09-22] MEDS: ASPIRIN EC 325 MG TABLET PO (08:11)
[2024-09-22] MEDS: CELECOXIB 200 MG CAPSULE PO (08:11)
[2024-09-22] MEDS: SERTRALINE 50 MG TABLET 25 MG PO (08:12)
[2024-09-22] MEDS: TAMSULOSIN HCL 0.4 MG CAPSULE PO ×2 (08:12→21:07)
[2024-09-22] MEDS: SODIUM CHLORIDE 0.9 % (FLUSH) 10 ML SYRINGE 5 ML IVF ×2 (08:13→21:09)
--- NOTE | 2024-09-22 08:18 | PM.IMPN1 ---
Assessment and Plan Assessment and plan (1) Multiple rib fractures: Problem comment: Mechanical fall on 09/18 striking left side of chest and sustained nondisplaced 9th rib fracture and mildly displaced fractures of ribs 10 and 11. Now with increased SOB and pain. CXR with atelectasis and patient is splinting. -Admit to ICU, continuous pulse ox and cardiac monitoring -Surgery consult appreciated -Respiratory to see -Encourage pulmonary toilet, IS use -Lidoderm patch continuously - discussed with pharmacy -Oxycodone -If creatinine remains stable in AM, recommend starting NSAIDs, pushing fluids 09/21 general surgery consulted. Recommending ongoing pain management. Adding Flexeril. MiraLax b.i.d. for stool burden. Continue Celebrex (creatinine 0.9) in addition to scheduled Tylenol, lidocaine patch, p.r.n. oxycodone, Dilaudid, Flexeril PT/OT consults - recommending SNF administrative services specialist for discharge planning/placement needs - awaiting [facility] assessment Status: Acute (2) Hypoxia: Problem comment: Suspect due to atelectasis from rib fractures. Not consistent with pneumonia Respiratory therapy following. Scheduled albuterol nebs. Improving, continue to wean as able 09/22 improving, no dyspnea on room air Status: Acute (3) History of TIA (transient ischemic attack): Problem comment: admitted here in 04/14; plavix x 6mo (no longer on), aspirin for life Status: Acute (4) BPH (benign prostatic hyperplasia): Problem comment: tamsulosin 0.4mg BID Status: Acute (5) Hyperthyroidism: Problem comment: - on methimazole 2.5 mg once daily Status: Acute (6) Malignant melanoma: Problem comment: Resection of 2 skin lesions on 09/18 as well as sentinel LN removal. Path pending Status: Acute Plan Continue PT/OT. Awaiting SNF placement. Due to long holiday weekend, likely not until Wednesday Total Time Spent Total Time Spent: Today I spent 45 minutes seeing the patient, reviewing Expanse and EPIC notes/diagnostics, discussing the care plan with our care time that includes social work, PT/OT, pharmacy, RT, long-term and documenting my impressions and plan in the medical record. Subjective Date Seen: 09/22/24 Interval history: Patient is seen sitting up in bed this morning. Is in good spirits. Reports sleeping well. Pain is currently appropriately managed. Worsens with movement yet. Denies headache or dizziness. Denies chest pain or shortness of breath. Tolerating orals without nausea vomiting. Awaiting SNF per PT/OT recommendations. Exam Narrative: Exam Narrative: PHYSICAL EXAM General: Pleasant, conversant, NAD Cardiovascular/chest: RRR Pulmonary: CTA bilaterally without rhonchi, rales, expiratory wheezes. No dyspnea on room air this morning Abdominal: Soft, nondistended, NTTP Neurological: Alert, answering questions appropriately, cranial nerves intact, no focal findings Extremities: No gross joint deformity or swelling. AROMI. Neurovascularly intact Skin: LUE dressings in place over surgical wounds, dry. Warm, dry. Const: Vital Signs, click to edit/add: Vital Signs - 24 hr 09/21/24 09:00 09/21/24 11:00 09/21/24 11:00 Temperature 98.7 F 99.0 F Pulse Rate 80 Pulse Rate [Left R adial] 79 Pulse Rate [Right Pulse Oximeter] 95 Respiratory Rate 20 22 Blood Pressure [Ri ght Arm] 126/77 132/84 Pulse Oximetry 91 94 Oxygen Delivery Me thod Nasal Cannula Room Air Oxygen Flow Rate 1 09/21/24 12:02 09/21/24 13:00 09/21/24 16:00 Temperature 98.9 F Pulse Rate Pulse Rate [Left R adial] Pulse Rate [Right Pulse Oximeter] 85 Respiratory Rate 22 16 16 Blood Pressure [Ri ght Arm] 110/75 Pulse Oximetry 92 94 94 Oxygen Delivery Me thod Nasal Cannula Nasal Cannula Nasal Cannula Oxygen Flow Rate 1 1 1 09/21/24 16:00 09/21/24 16:18 09/21/24 16:19 Temperature 98.7 F Pulse Rate Pulse Rate [Left R adial] Pulse Rate [Right Pulse Oximeter] 85 85 Respiratory Rate 16 16 Blood Pressure [Ri ght Arm] 111/74 Pulse Oximetry 94 94 Oxygen Delivery Me thod Nasal Cannula Oxygen Flow Rate 1 09/21/24 19:24 09/21/24 20:27 09/21/24 20:28 Temperature 98.3 F Pulse Rate Pulse Rate [Left R adial] Pulse Rate [Right Pulse Oximeter] 89 Respiratory Rate 18 Blood Pressure [Ri ght Arm] 114/54 L Pulse Oximetry 92 85 L 90 Oxygen Delivery Me thod Room Air Room Air Nasal Cannula Oxygen Flow Rate 1 09/21/24 23:21 09/21/24 23:21 09/21/24 23:31 Temperature 97.8 F Pulse Rate Pulse Rate [Left R adial] Pulse Rate [Right Pulse Oximeter] 70 Respiratory Rate 17 17 17 Blood Pressure [Ri ght Arm] 115/69 Pulse Oximetry 94 94 Oxygen Delivery Me thod Nasal Cannula Nasal Cannula Oxygen Flow Rate 1 09/21/24 23:40 09/22/24 00:33 09/22/24 02:16 Temperature 97.6 F Pulse Rate 65 Pulse Rate [Left R adial] Pulse Rate [Right Pulse Oximeter] 60 Respiratory Rate 16 Blood Pressure [Ri ght Arm] 111/65 Pulse Oximetry 94 96 Oxygen Delivery Me thod Room Air Oxygen Flow Rate 1 09/22/24 07:00 09/22/24 07:00 09/22/24 07:00 Temperature 97.7 F Pulse Rate Pulse Rate [Left R adial] Pulse Rate [Right Pulse Oximeter] 76 Respiratory Rate 18 18 Blood Pressure [Ri ght Arm] 130/88 Pulse Oximetry 95 95 91 Oxygen Delivery Me thod Room Air Nasal Cannula Oxygen Flow Rate 1 1
--- NOTE | 2024-09-22 18:50 | PC.NURSE ---
End of shift-- Very pleasant and cooperative, alert and oriented patient. VSS and pt is afebrile. SPO2 maintained >90% on RA today. Pain in left ribs appears well managed with scheduled Tylenol and Celebrex only. Dressings to left shoulder, arm and armpit were changed and are C/D/I. LS CTA. He denied nausea and ate 75-100% of a regular diet without difficulty. Pt stated no BM since Wednesday. BS+ x4, but are hypoactive. Abdomen is distended. Pt was given 2 cups of warm, prune juice in addition to his scheduled Miralax with no results. Ambulated in hallway twice today with assist of 1, belt and walker and tolerated it well. was at bedside today and appears loving and supportive.
[2024-09-22] MEDS: SIMVASTATIN 20 MG TABLET PO (21:08)
[2024-09-23] VITALS: PULSE 81; RESP 16
[2024-09-23] MEDS: ACETAMINOPHEN 325 MG TABLET 650 MG PO ×3 (01:09→13:36)
[2024-09-23] MEDS: LIDOCAINE 5% PATCH 1 PATCH TRANSDERMA ×2 (02:29→13:37)
[2024-09-23 02:35] VITALS: BP 144/82; PULSE 82; RESP 16; TEMP 36.4; O2SAT 92
[2024-09-23] MEDS: ALBUTEROL SULFATE 2.5 MG/3 ML VIAL.NEB NEB (05:54)
[2024-09-23 07:00] VITALS: BP 140/80; PULSE 66; PULSE 88; RESP 16; TEMP 36.6; O2SAT 91; O2SAT 92
--- NOTE | 2024-09-23 07:03 | PC.NURSE ---
Pt pleasant, alert and oriented. VSS. O2 sats remained above 90% overnight. Tele reads NSR with BBB and 1st degree AV block. Pain rated 2-4/10, pt states intermittent and worsens with movement. Pt did have one episode of breakthrough pain rated 9/10, PRN oxy given. Ice pack provided as well. Pt states intermittent cough with minimal sputum production. Abdominal binder used and pt educated on splinting. Pt up via SBA with walker and gait belt, pt made several walks in halls. Pt had large BM, loose and soft. Left arm has 3 sutures from previous surgery, covered in mepilex, C/D/I. Left arm restricted. Pt in bed, appears to be resting, call light within reach.?
[2024-09-23 08:00] VITALS: PULSE 85; RESP 16
--- NOTE | 2024-09-23 08:43 | P.IMPN_ITS ---
Assessment and Plan Assessment and plan (1) Multiple rib fractures: Problem comment: Mechanical fall on 09/18 striking left side of chest and sustained nondisplaced 9th rib fracture and mildly displaced fractures of ribs 10 and 11. Now with increased SOB and pain. CXR with atelectasis and patient is splinting. -Admit to ICU, continuous pulse ox and cardiac monitoring -Surgery consult appreciated -Respiratory to see -Encourage pulmonary toilet, IS use -Lidoderm patch continuously - discussed with pharmacy -Oxycodone -If creatinine remains stable in AM, recommend starting NSAIDs, pushing fluids 09/21 general surgery consulted. Recommending ongoing pain management. Adding Flexeril. MiraLax b.i.d. for stool burden. Continue Celebrex (creatinine 0.9) in addition to scheduled Tylenol, lidocaine patch, p.r.n. oxycodone, Dilaudid, Flexeril PT/OT consults - continues to recommend SNF web services developer for discharge planning/placement needs - awaiting [facility] assessment (long holiday ) Status: Acute (2) Hypoxia: Problem comment: RESOLVED Suspect due to atelectasis from rib fractures. Not consistent with pneumonia Respiratory therapy following. Scheduled albuterol nebs. Improving, continue to wean as able 09/22 improving, no dyspnea on room air Status: Resolved (3) History of TIA (transient ischemic attack): Problem comment: admitted here in 04/14; plavix x 6mo (no longer on), aspirin for life Status: Acute (4) BPH (benign prostatic hyperplasia): Problem comment: tamsulosin 0.4mg BID Status: Acute (5) Hyperthyroidism: Problem comment: - on methimazole 2.5 mg once daily Status: Acute (6) Malignant melanoma: Problem comment: Resection of 2 skin lesions LUE on 09/18 as well as sentinel LN removal. Path pending Daily wound dressing changes Status: Acute Plan Continue PT/OT. Awaiting SNF placement. Due to long holiday weekend, likely not until Wednesday Total Time Spent Total Time Spent: Today I spent 45 minutes seeing the patient, reviewing Expanse and EPIC notes/diagnostics, discussing the care plan with our care time that includes social work, PT/OT, pharmacy, RT, care home and documenting my impressions and plan in the medical record. Subjective Date Seen: 09/23/24 Interval history: Patient is seen lying in bed, at bedside. Did not sleep as well as bruise over left posterior chest was uncomfortable. No headache or dizziness. No chest pain or shortness of breath. Has been weaned to room air. Continues to work with PT and OT. Ambulating frequently with a walker throughout the day. Exam Narrative: Exam Narrative: PHYSICAL EXAM General: Pleasant, conversant, NAD Cardiovascular/chest: RRR Pulmonary: CTA bilaterally without rhonchi, rales, expiratory wheezes. No dyspnea on room air Abdominal: Soft, nondistended, NTTP Neurological: Alert, answering questions appropriately, cranial nerves intact, no focal findings Extremities: No gross joint deformity or swelling. AROMI. Neurovascularly intact Skin: LUE dressings in place over surgical wounds, dry. Warm, dry. Const: Vital Signs, click to edit/add: Vital Signs - 24 hr 09/22/24 11:00 09/22/24 15:00 09/22/24 15:00 Temperature 98.0 F 97.8 F Pulse Rate Pulse Rate [Right Pulse Oximeter] 87 80 Respiratory Rate 24 18 18 Blood Pressure [Ri ght Arm] 81/51 L 101/65 Pulse Oximetry 91 92 91 Oxygen Delivery Me thod Room Air Room Air Room Air 09/22/24 15:00 09/22/24 15:00 09/22/24 16:00 Temperature Pulse Rate 74 Pulse Rate [Right Pulse Oximeter] 80 Respiratory Rate 18 Blood Pressure [Ri ght Arm] Pulse Oximetry 92 Oxygen Delivery Me thod 09/22/24 19:53 09/22/24 23:00 09/22/24 23:00 Temperature 98.2 F Pulse Rate 79 Pulse Rate [Right Pulse Oximeter] 92 Respiratory Rate 18 Blood Pressure [Ri ght Arm] 105/62 Pulse Oximetry 88 91 Oxygen Delivery Me thod Room Air 09/22/24 23:00 09/22/24 23:25 09/23/24 00:00 Temperature 97.8 F Pulse Rate Pulse Rate [Right Pulse Oximeter] 81 81 Respiratory Rate 16 16 Blood Pressure [Ri ght Arm] 119/69 Pulse Oximetry 91 91 Oxygen Delivery Me thod Room Air Room Air 09/23/24 02:35 09/23/24 07:00 09/23/24 07:00 Temperature 97.6 F Pulse Rate 66 Pulse Rate [Right Pulse Oximeter] 82 Respiratory Rate 16 Blood Pressure [Ri t Arm] 144/82 H Pulse Oximetry 92 92 Oxygen Delivery Me thod Room Air 09/23/24 07:00 Temperature Pulse Rate Pulse Rate [Right Pulse Oximeter] Respiratory Rate 16 Blood Pressure [Ri [facility] Arm] Pulse Oximetry 92 Oxygen Delivery Me thod Room Air
--- NOTE | 2024-09-23 09:41 | PM.GSPN ---
Subjective Subjective Date Seen: 09/23/24 Interval history: Patient is doing well. He is on room air. His pain is controlled with oxycodone. He stated that he took half a tablet today just to stay had of the pain. He had a bowel movement yesterday. Exam Narrative: Exam Narrative: Left back with lidocaine patch on it. No expanding hematoma. Patient's breathing is nonlabored on room air Const: Vital Signs, click to edit/add: Vital Signs - 24 hr 09/22/24 11:00 09/22/24 15:00 09/22/24 15:00 Temperature 98.0 F 97.8 F Pulse Rate Pulse Rate [Right Pulse Oximeter] 87 80 Respiratory Rate 24 18 18 Blood Pressure [Ri ght Arm] 81/51 L 101/65 Pulse Oximetry 91 92 91 [facility] Room Air Room Air 09/22/24 15:00 09/22/24 15:00 09/22/24 16:00 Temperature Pulse Rate 74 Pulse Rate [Right Pulse Oximeter] 80 Respiratory Rate 18 Blood Pressure [Ri ght Arm] Pulse Oximetry 92 Oxygen Delivery [place] th[place] 09/22/24 19:53 09/22/24 23:00 09/22/24 23:00 Temperature 98.2 F Pulse Rate 79 Pulse Rate [Right Pulse Oximeter] 92 Respiratory Rate 18 Blood Pressure [Ri ght Arm] 105/62 Pulse Oximetry 88 91 [facility] 09/22/24 23:00 09/22/24 23:25 09/23/24 00:00 Temperature 97.8 F Pulse Rate Pulse Rate [Right Pulse Oximeter] 81 81 Respiratory Rate 16 16 Blood Pressure [Ri ght Arm] 119/69 Pulse Oximetry 91 91 [facility] Room Air 09/23/24 02:35 09/23/24 07:00 09/23/24 07:00 Temperature 97.6 F Pulse Rate 66 Pulse Rate [Right Pulse Oximeter] 82 Respiratory Rate 16 Blood Pressure [Ri ght Arm] 144/82 H Pulse Oximetry 92 92 [facility] 09/23/24 07:00 Temperature Pulse Rate Pulse Rate [Right Pulse Oximeter] Respiratory Rate 16 Blood Pressure [Ri ght Arm] Pulse Oximetry 92 [facility] Progress Note:A&P Assessment and plan (1) Multiple rib fractures: Status: Acute Plan 81-year-old male admitted to the hospital with 3 rib fractures after a fall without pneumothorax or hemothorax. Patient is doing well. He is now on room air breathing nonlabored. Patient's pain is controlled with pain medication. Patient is okay to discharge home from surgery standpoint. Patient should be discharged on MiraLax daily. Patient is scheduled to go on a trip in 1 week. Patient has subcutaneous air adjacent to his fractures. I would not recommend flying for at least 4 weeks.
--- NOTE | 2024-09-23 10:58 | P.DS_ITS ---
DS: Providers Provider Date Seen: 09/23/24 Date of admission: 09/20/24 20:43 Primary care physician: Dave Romero MD Admitting Clinician: Noni Lance MD Consults: 09/20/24 20:43 Consult to Occupational Therapy [CONS] Routine Comment: Reason(s) for OT Consult:: Evaluate and Treat Any Restrictions?:: No Restrictions Consult to Physical Therapy [CONS] Routine Comment: Reason(s) for PT Consult:: Evaluate and Treat Any Restrictions?:: No Restrictions Consult to Obstetrics/Gynecology Nurse [CONS] Routine Comment: Reason for Consult:: Social Service Consult 09/20/24 20:46 Consult to Respiratory Therapy [CONS] Routine Comment: Reason(s) for RT Consult:: Consult 09/20/24 20:52 Consult to Physician [CONS] Routine Comment: Consulting Provider: Paty Waddell Has provider been notified: Yes 09/20/24 22:35 Consult to Obstetrics/Gynecology Nurse [CONS] Routine Comment: Reason for Consult:: Abuse, Neglect Potential Attending Physician on discharge: Lulu Carson [facility], PA-C [facility] Medicine Date of Discharge: 09/23/24 DS: Diagnosis Discharge Diagnosis (1) Multiple rib fractures: Status: Acute Problem details: Mechanical fall on 09/18 striking left side of chest and sustained nondisplaced 9th rib fracture and mildly displaced fractures of ribs 10 and 11. Now with increased SOB and pain. CXR with atelectasis and patient is splinting. -Admit to ICU, continuous pulse ox and cardiac monitoring -Surgery consult appreciated -Respiratory to see -Encourage pulmonary toilet, IS use -Lidoderm patch continuously - discussed with pharmacy -Oxycodone -If creatinine remains stable in AM, recommend starting NSAIDs, pushing fluids 09/21 general surgery consulted. Recommending ongoing pain management. Adding Flexeril. MiraLax b.i.d. for stool burden. Continue Celebrex (creatinine 0.9) in addition to scheduled Tylenol, lidocaine patch, p.r.n. oxycodone, Dilaudid, Flexeril PT/OT consults - continues to recommend SNF environmental services technician for discharge planning/placement needs Prior to discharge, patient continued to work with PT/OT as well as respiratory therapy daily. Significant improvement has been made. No longer qualifying for short-term rehab. Re-evaluated by General surgery in support of patient discharging to home. Has a planned trip to travel to [facility] in the upcoming weeks. As CT shows small amount of soft tissue air in the anterior left chest without evidence of pneumothorax, General surgery has recommended no flying for 4 weeks. A letter has been provided for the [employer]. Pain management to include scheduled Tylenol, lidocaine patch, ice/heat, Celebrex, small amounts of oxycodone and Flexeril as needed- recommend discontinuing as soon as able. Risks for sedation and falls discussed. Continue MiraLax once daily, consider senna if continues to have significant or increasing bowel movements. Continue with RT recommendations including incentive spirometry, albuterol inhaler, frequent ambulation. Continue with PT and OT recommendations. Of note, is quite upset that patient is being appropriately discharged as he no longer meets criteria for hospital stay and per therapy evaluations, no longer qualifies for SNF placement, instead appropriate for home PT and OT. She is upset as they leave for their family trip on Wednesday and expected he would be in rehab during the course of their vacation. We discussed that while it may be an inconvenience for him to return home as a trip has been planned, we dick ve encouraged her to find friends/family that may be able to assist or stay with him. She will consider private pay options. She may call our social sciences instructor team on Wednesday for resources as well. (2) Contusion, chest wall: Status: Acute Problem details: S/p fall. Posterior left side Management as above (3) Hypoxia: Status: Resolved Problem details: RESOLVED Suspect due to atelectasis from rib fractures. Not consistent with pneumonia Respiratory therapy following. Scheduled albuterol nebs. Improving, continue to wean as able 09/22 improving, no dyspnea on room air (4) History of TIA (transient ischemic attack): Status: Acute Problem details: admitted here in 04/14; plavix x 6mo (no longer on), aspirin for life (5) BPH (benign prostatic hyperplasia): Status: Acute Problem details: tamsulosin 0.4mg BID (6) Hyperthyroidism: Status: Acute Problem details: - on methimazole 2.5 mg once daily (7) Malignant melanoma: Status: Acute Problem details: Resection of 2 skin lesions LUE on 09/[address] as sentinel LN removal. Path pending Continue wound dressing changes as instructed by [place] surgery DS: Summary Hospital Course Hospital Course: Course of care and details as noted above. Admitted with 3 consecutive rib fractures left side, left posterior chest wall contusion s/p fall. Small amount of sub Q air noted on CT without evidence of pneumothorax. General surgery consulted given trauma status. PT and OT consulted. Significant improvement was made, no longer requiring short-term rehab. Discharged to home with management plan as above. Family encouraged to consider current trip plans to provide necessary support. Outpatient follow-up with PCP this coming week. Status at Discharge Functional status at discharge: uses cane/walker Overall status at discharge: patient is progressing back to baseline Time Spent with Patient Time attestation: Total time spent providing and/or coordinating discharge services: Time spent: Greater than 30 minutes Exam Narrative: Exam Narrative: PHYSICAL EXAM General: Pleasant, conversant, NAD Cardiovascular: RRR Pulmonary: No dyspnea on room air Neurological: Alert, answering questions appropriately Skin: Warm, dry. Const: Vital Signs, click to edit/add: Vital Signs - 24 hr 09/22/24 11:00 09/22/24 15:00 09/22/24 15:00 Temperature 98.0 F 97.8 F Pulse Rate Pulse Rate [Right Pulse Oximeter] 87 80 Respiratory Rate 24 18 18 Blood Pressure [Ri ght Arm] 81/51 L 101/65 Pulse Oximetry 91 92 91 Oxygen Delivery Me thod Room Air Room Air Room Air 09/22/24 15:00 09/22/24 15:00 09/22/24 16:00 Temperature Pulse Rate 74 Pulse Rate [Right Pulse Oximeter] 80 Respiratory Rate 18 Blood Pressure [Ri ght Arm] Pulse Oximetry 92 Oxygen Delivery Me thod 09/22/24 19:53 09/22/24 23:00 09/22/24 23:00 Temperature 98.2 F Pulse Rate 79 Pulse Rate [Right Pulse Oximeter] 92 Respiratory Rate 18 Blood Pressure [Ri ght Arm] 105/62 Pulse Oximetry 88 91 Oxygen Delivery Me thod Room Air 09/22/24 23:00 09/22/24 23:25 09/23/24 00:00 Temperature 97.8 F Pulse Rate Pulse Rate [Right Pulse Oximeter] 81 81 Respiratory Rate 16 16 Blood Pressure [Ri ght Arm] 119/69 Pulse Oximetry 91 91 Oxygen Delivery Me thod Room Air Room Air 09/23/24 02:35 09/23/24 07:00 09/23/24 07:00 Temperature 97.6 F Pulse Rate 66 Pulse Rate [Right Pulse Oximeter] 82 Respiratory Rate 16 Blood Pressure [Ri ght Arm] 144/82 H Pulse Oximetry 92 92 Oxygen Delivery Me thod Room Air 09/23/24 07:00 Temperature Pulse Rate Pulse Rate [Right Pulse Oximeter] Respiratory Rate 16 Blood Pressure [Ri ght Arm] Pulse Oximetry 92 Oxygen Delivery Me thod Room Air DS: Data Imaging Chest x-ray: Attestation: I have reviewed the pertinent imaging results. Radiologist's impression: Moderately elevated right hemidiaphragm. Mildly enlarged cardiomediastinal silhouette with calcified aortic knob. Mild bibasilar opacities. Moderate degenerative changes of the visualized spine. Known left-sided rib fractures are better seen on preceding CT. Trace left pleural effusion. Impression: Mild bibasilar opacities are favored to represent atelectasis. Known left-sided rib fractures are better seen on preceding CT. Rib x-ray: Attestation: I have reviewed the pertinent imaging results. Radiologist's impression: 1. Demonstration of displaced fractures of the 8th, 9th and 10th ribs with a subtle basilar hydropneumothorax. Minimal subcutaneous emphysema is seen overlying the left chest wall. No evidence of mediastinal shift or tension. 2. No other displaced rib fracture is appreciated. If pain and clinical symptoms persist, subtle, non-displaced injuries are not entirely excluded. CT chest abdomen pelvis: Attestation: I have reviewed the pertinent imaging results. Radiologist's impression: CHEST: No pneumothorax, hemothorax or pulmonary contusion is evident. A small amount of soft tissue air is noted in the superolateral anterior left chest. An acute near-anatomically aligned fracture of the posterior left 9th rib is demonstrated as well as acute displaced fractures of the posterior left 10th and 11th ribs. No mediastinal hematoma is apparent. 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 Dependent atelectasis is present in both lung bases. No significant airway abnormality or pleural effusion is noted. There is no mediastinal or hilar adenopathy. A large substernal right thyroid nodule is demonstrated. The heart is normal in size. Calcified coronary arterial plaque is demonstrated. ABDOMEN/PELVIS: No free intraperitoneal blood is demonstrated. The liver, spleen, adrenal glands, kidneys and pancreas are intact. No lumbar spinal or pelvic fracture is evident. The biliary system is unremarkable. Multiple renal parenchymal cysts are present bilaterally. Several small bladder stones are present. 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 No lymphadenopathy is evident. The bowel is unremarkable. The prostate is markedly enlarged. IMPRESSION: 1. Acute near-anatomically aligned fracture of the posterior left 9th rib as well as acute displaced fractures of the posterior left 10th and 11th ribs. 2. Small amount of soft tissue air in the superolateral anterior left chest. No pneumothorax. 3. Multiple chronic findings, as above. Discharge Plan Discharge Disposition: Home, Self-Care Date of Admission: 09/20/24 20:43 Attending Provider on Discharge: Lulu Carson Consulting Providers: Paty Waddell Primary Care Provider: Dave Romero Condition: Improved Anticipated Discharge Date/Time: 09/23/24 16:00 Discharge Medications: New oxycodone 5 mg tablet 5 mg PO Q6H PRN (Reason: pain) Qty: 14 0RF polyethylene glycol 3350 [Miralax] 17 gram/dose powder 17 g PO DAILY Qty: 119 0RF lidocaine 5 % adhesive patch,medicated 1 patch topical Q24H Qty: 30 0RF Rx Instructions: leave on most painful area for up to 12 hrs cyclobenzaprine 5 mg tablet 5 mg PO TID PRN (Reason: muscle spasm) Qty: 14 0RF celecoxib [Celebrex] 50 mg capsule 50 mg PO DAILY Qty: 10 0RF albuterol sulfate 90 mcg/actuation aerosol powdr breath activated 1 inh inhalation Q4-6H PRNQty: 1 0RF Continued cholecalciferol (vitamin D3) 25 mcg (1,000 unit) capsule 1,000 unit PO DAILY calcium carbonate [Calcium 600] 600 mg calcium (1,500 mg) tablet 600 mg PO DAILY methimazole 5 mg tablet 2.5 mg PO DAILY tamsulosin 0.4 mg capsule 0.4 mg PO BID PreserVision AREDS-2 250-90-40-1 mg capsule 1 tab PO DAILY simvastatin 20 mg Tablet 20 mg PO HS Qty: 30 0RF sertraline 25 mg tablet 25 mg PO QAM acetaminophen 500 mg tablet 1,000 mg PO Q6H PRN aspirin 325 mg tablet,delayed release (DR/EC) 325 mg PO DAILY Discontinued oxycodone 5 mg tablet 5 mg PO Q4H PRN (Reason: pain) Discharge Orders: Discharge Order (Routine); Ordered 09/23/24 Ordered By: Lulu Carson Additional Instructions: RECOMMEND HOME PT/OT WELL A BATH AIDE. PAPERWORK HAS BEEN COMPLETED CONTINUE TO TAKE TYLENOL AND CELEBREX DAILY. USE FLEXERIL AND OXYCODONE SPARINGLY NEEDED - INCREASED RISK FOR SEDATION AND FALLS CONTINUE TO USE THE LIDOCAINE PATCHES AND USE ICE/COOL COMPRESS TO THE CHEST NEEDED TAKE MIRALAX DAILY WHILE ON NARCOTICS. YOU MAY USE A STOOL SOFTENER (SENNA) INSTEAD IF YOU ARE HAVING TOO MANY BOWEL MOVEMENTS USE YOUR WALKER AT ALL TIMES CONTINUE RESPIRATORY THERAPY RECOMMENDATIONS AND ALBUTEROL INHALER NEEDED Activity Level: Activity as Tolerated and Use Walker Activity Detail: Continue PT/OT recommendations Discharge Diet: Regular Follow Up Appointments: Dave Romero MD [Primary Care Provider, Family Practice] - 09/25/24 11:35 am Referral Note: Post hospital follow up with Tish Gallegos at [facility]. Please arrive 15 minutes early for check-in. Forms: [employer] Info Instructions
[2024-09-23] MEDS: CELECOXIB 200 MG CAPSULE PO (11:24)
[2024-09-23] MEDS: ASPIRIN EC 325 MG TABLET PO (11:26)
[2024-09-23] MEDS: TAMSULOSIN HCL 0.4 MG CAPSULE PO (11:26)
[2024-09-23] MEDS: SERTRALINE 50 MG TABLET 25 MG PO (11:26)
[2024-09-23] MEDS: ALBUTEROL INHALER 2 PUFF IH (11:27)
[2024-09-23] MEDS: SENNOSIDES/DOCUSATE TABLET 1 TAB PO (11:27)
[2024-09-23] MEDS: SODIUM CHLORIDE 0.9 % (FLUSH) 10 ML SYRINGE 5 ML IVF (11:28)
[2024-09-23 13:14] VITALS: O2SAT 91
--- NOTE | 2024-09-23 13:17 | RESP.RT ---
Patient on Room Air, SaO2 91%, bounces between 89-93, respiratory rate 18-20/minute. Breathing regular/easy, not as shallow as when I saw Patient on Past Wednesday. Patient has good clear cough, not supporting left lower side as tight. Patient stated not as painful. BBS with very fine crackles noted, with good air movement. LLL slightly diminished, possible due to rib fractures 9-10-11, area patient is splitting. Had patient take breath, improved since Wednesday, patient stated less painful today. Uses IS to 1999 with nice slow breath keeping float mid level on gauge, much improved. Patient has good clear voice and responds appropriately. Albuterol changed to MDI with spacer, instruction, information, and demonstration on use of MDI with spacer. Patient return demonstration using MDI well, two puffs given.
--- NOTE | 2024-09-23 17:44 | PC.NURSE ---
Discharge: patient pleasant and cooperative. Up with SBA, walker and gait belt. Tolerating regular diet well, pain managed with PRN medication. IV removed with catheter intact. Discussed follow up and new medications with patient and . Home care [id number] started, put in social works office to review wednesday, family updated. Discharged @ 1630 with .
--- NOTE | 2024-09-25 15:27 | PC.SOCIAL ---
Discharge planning: MAGGI spoke with patient's and discussed home care services. SW asked if patient's would like a list of agencies that SW can send referrals to. Patient's states she would just like referrals sent to whichever agencies. SW explained that she would then start by sending referrals to the places in the area that have the highest ratings - [facility] and [facility]. confirmed she would like this. SW explained that she would reach out after she hears that a place has accepted. SW sent referral to [facility] and [facility]. SW called [facility] to follow-up and they state that they can accept him. SW called patient's and provided her with the information including phone number. Patient's asked that SW call [facility] back and inform them she would like a call tomorrow as she will be out of the country starting Wednesday. SW called [facility] and updated them with this information. Patient's had no other concerns or questions at this time.
== END 2024-09-23 16:30 | disposition home or self-care (01) | DRG 184 ==
LOC: ED 20:12 → MEDSURG 20:22
PROVIDERS: Admitting Provider Family Medicine; Emergency Provider Emergency Medicine; PCP Family Medicine; Visit Provider Family Medicine
DX: S22.42XA Multiple fractures of ribs, left side, initial encounter for closed fracture (principal); J98.11 Atelectasis; N17.9 Acute kidney failure, unspecified; S20.212A Contusion of left front wall of thorax, initial encounter; R09.02 Hypoxemia; G47.33 Obstructive sleep apnea (adult) (pediatric); W01.198A Fall on same level from slipping, tripping and stumbling with subsequent striking against other object, initial encounter; Y92.231 Patient bathroom in hospital as the place of occurrence of the external cause; I10 Essential (primary) hypertension; N40.1 Benign prostatic hyperplasia with lower urinary tract symptoms; R33.8 Other retention of urine; Z87.442 Personal history of urinary calculi; C43.62 Malignant melanoma of left upper limb, including shoulder; E05.90 Thyrotoxicosis, unspecified without thyrotoxic crisis or storm; E55.9 Vitamin D deficiency, unspecified; F32.A Depression, unspecified; E78.5 Hyperlipidemia, unspecified; Z86.73 Personal history of transient ischemic attack (TIA), and cerebral infarction without residual deficits
CPT/HCPCS: 36415; 71046; 71260; 74177; 80048; 85025; 94640; 94761; 97112; 97116; 97161; 97165; 97530; 99283; 99284; 99285; A9270; J1171; Q9967

== ENCOUNTER 2024-10-11 21:15 | Emergency (ER) | payer MEDICARE, BC, SELFPAY ==
--- OUTSIDE RECORDS SUMMARY | 2024-10-11 21:18 | XMS_ITS | Clinical Summary ---
Author Organization [facility] Address [address] [place] [address] Care Team Providers Care Green Jobs Trainer Name Role Phone Dave Romero MD Primary Care Provider [phone] Katherine Smith Unavailable [phone] Estelle Sanchez DO Unavailable [phone] Adrian Peterson MD Unavailable Yissel Gibson RN Unavailable Allergies Active Allergy Reactions Criticality Noted Date Comments [place]-3 Fatty Acids Other - Describe In Comment Field 04/15/2011 Causes pain in the back Lisinopril Cough 06/02/2011 Shellfish Containing Products Other - Describe In Comment Field 03/21/2012 Anything that lives in the water. Kidney, liver, spleen inflammation Sulfa (Sulfonamide Antibiotics) 04/29/2006 Medications [place] 500 mg Tab Take 1 Tab by mouth once daily. 0 12/17/19 10 Active CALCIUM CARBONATE (CALCIUM 500 ORAL) Take 1,000 mg by mouth once daily. Active lactobac cmb #6-qfe-rmhjzfeqvk (PROBIOTIC & ACIDOPHILUS) 300-250 million cell-mg cap Take by mouth. 0 02/13/20 14 Active Vit C-Vit S-Uqrnnr-Ngd-OM-3 (OCUVITE 150 MG-30 UNIT-5 MG-150 MG CAPSULE) 124-32-7-150 vx-xdpu-ns-mg capsule Take by mouth. 0 04/27/19 17 [...] daily., Informant: Patient's Recall, Family, Reported on 09/25/2024 simvastatin (ZOCOR) 20 mg tabletIndications: Hyperlipidemia with [...] 4000mg in 24 hrs. 09/19/19 25 Active Celecoxib (CeleBREX) 50 mg capsuleIndications :Closed fracture of multiple ribs of left side with routine healing, subsequent encounter Take 1 Capsule (50 mg) by mouth two times daily with meals. 60 Capsule 09/26/19 25 Active aspirin 81 mg tablet Take 81 mg by mouth once daily with a meal. Start this one week prior to surgery and stop ASA 325 mg 025 Disconti nued(*Pa tient states no longer taking) Active Problems Problem [...] Encounters Date Type Department Care Team Description 09/29/2024 Telephone [facility] [address] [place] [phone] Adrian Peterson MD 09/26/2024 Telephone [facility] [address] [place] [address] Adrian Peterson MD Questions 09/26/2024 Telephone [facility] [address] [phone] Estelle Sanchez DO Questions 09/26/2024 Telephone [facility] [address] [place] [address] Anneliese Mcnulty RN Questions 09/25/2024 11:35 AM CDT Office Visit [facility] [address] [address] [facility] F/U (3 rib Fx. Currently ribs hurts. Currently taking Ibuprofen and a muscle relaxer ) 09/25/2024 Telephone [facility] [address] [address] Dave Romero MD Questions; Results 09/25/2024 Travel 09/20/2024 Orders Only [facility] Scanner 1 scan: (1-Ord) [facility], XR CHEST 2V, 09/20/2024 09/19/2024 Orders Only [facility] Scanner 1 scan: (1-Ord) [facility], CHEST ABDOMEN PELV W CON, 09/19/2024 09/19/2024 Telephone [facility] [address] [facility] [address] [place] [address] Adrian Peterson MD Pain 09/18/2024 12:50 PM CDT Anesthesia Event [address] [address] Tai Messer CRNA Koenig, Rowan Davies MD 09/18/2024 12:17 PM CDT - 09/18/2024 1:49 PM CDT Surgery [address] [address] Adrian Peterson MD wide local excision of left upper arm melanoma, sentinel lymph node biopsy wide local excision of left posterior shoulder melanoma SENT NODE AT 0800 09/18/2024 9:18 AM CDT - 09/18/2024 5:00 PM CDT Hospital Encounter [address] [address] Adrian Peterson MD Malignant melanoma, unspecified site (HC) (Primary Dx); 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) Discharge Disposition: Home Self Care 09/18/2024 Travel 09/15/2024 Travel 09/14/2024 Telephone [facility] [address] [place] [phone] Adrian Peterson MD Concerns; Surgery Scheduled 09/13/2024 Telephone [facility] [address] [place] [phone] Adrian Peterson MD 09/12/2024 Telephone [facility] [address] [place] [phone] Adrian Peterson MD Questions 08/29/2024 10:50 AM CDT Office Visit [facility] [address] [place] [address] Dave Romero MD Preoperative Exam ( Removing melanoma 09/14) 08/28/2024 Travel 08/18/2024 Telephone [facility] [address] [place] [phone] Catrina Melvin, [facility] Surgery Scheduled 08/17/2024 Telephone [facility] [address] [place] [phone] Adrian Peterson MD Follow Up 08/12/2024 Refill [facility] [address] [place] [address] Minh Vásquez MD Refill Request (Methimazole) 08/10/2024 3:40 PM CDT Office Visit [facility] [address] [place] [phone] Adrian Peterson MD Consult 08/10/2024 Travel 08/09/2024 Telephone [facility] [address] [place] [address] Catrina Melvin, FINANCIAL REPORTING ADVISOR 08/07/2024 Telephone [facility] [address] [place] [phone] Catrina Melvin CMA 08/06/2024 Travel 08/01/2024 Telephone [facility] [address] [place] [address] Yissel Gibson RN new referral 08/01/2024 Telephone [facility] [address] [place] [address] [place] Cancer Referral (Malignant melanoma, unspecified site) 08/01/2024 Orders Only [facility] [address] [address] Estelle Sanchez, <No scans attached> 07/25/2024 11:15 AM CDT Office Visit [facility] [address] [address] Estelle Sanchez, Derm Problem 07/24/2024 Travel 07/19/2024 9:40 AM CDT Office Visit [facility] [address] [place] [address] Dave Roemro MD Follow Up (Blood pressure follow up/Also had a recent surgery with orthopedics as well - RIGHT knee) 07/18/2024 Travel from Last 3 Months Immunizations Immunization Administration Dates Next Due AMB INFLUENZA IIV3 (AGE 65+ YRS) PF (Flu Clinic Only) 01/12/2019,12/09/2016 AMB Influenza, IIV3 (Age >=3 years)(Flu Clinic Only) 12/28/2012,01/07/2011,01/17/2008 Amb Influenza, Inact (High-d ose) (Flu Clinic Only) 01/07/2016,12/13/2013 COVID-19 vaccine (Pfizer-Bio NTech 30mcg/0.3mL) 12YO+ BIVALENT PF, MDV 01/19/2022 COVID-19 vaccine (Pfizer-Bio NTech 30mcg/0.3mL) 12YO+ KRISTINA-SUCROSE PF, MDV 07/14/2021 COVID-19 vaccine (Pfizer-Bio NTech 30mcg/0.3mL) PF, MDV 01/06/2021,06/05/2020,05/14/2020 Influenza A [...] Sex Assigned at Male 05/12/2020 4:43 PM FOOD AND NUTRITION SERVICES ASSISTANT Legal Sex Male 5:24 AM FOOD AND NUTRITION SERVICES ASSISTANT Gender Identity Male 05/12/2020 4:43 PM FOOD AND NUTRITION SERVICES ASSISTANT Sexual Orientation Straight 05/12/2020 4: 43 PM FOOD AND NUTRITION SERVICES ASSISTANT Occupation Industry Job Start Date Job End Date Retired Not on file Not on file Not on file Obstetrics History Last Filed Vital Signs Vital Sign Reading Time Taken Comments Blood Pressure 128/78 09/25/2024 11:57 AM CDT Pulse 60 09/25/2024 11:57 AM CDT Temperature 36.3 C (97.4 F) 09/18/2024 3:50 PM CDT Respiratory Rate 16 09/18/2024 4:50 PM CDT Oxygen Saturation 97% 09/25/2024 11:57 AM CDT Inhaled Oxygen Concentration - - Weight 91.2 kg (201 lb) 09/25/2024 11:57 AM CDT Height 177.8 cm (5' 10) 09/18/2024 10:08 AM CDT Body Mass Index 28.84 09/18/2024 10:08 AM CDT Plan of Treatment Upcoming Encounters Date Type Department Care Team (Late st Contact Info) Description 10/23/2024 9:00 AM CDT Office Visit [facility] [address] [address] [place] [address] [place] [address] Health Maintenance Due Date Last Done Comments [...] Procedure Name Priority Date/Time Associated Diagnosis Comments SCAN-RADIOLOGY REPORT 09/20/2024 12:00 AM CDT SCAN-CT INTERPRETATION 12:00 AM CDT PATH TISSUE EXAM Today 09/18/2024 1:26 PM CDT ENDOTRACHEAL TUBE Routine 09/18/2024 1:12 PM CDT EXCISION MELANOMA WITH SENTINEL BIOPSY Tier 2: within 30 days 09/18/2024 12:40 PM CDT Malignant melanoma, unspecified [...] behavior from Last 3 Months Results * SCAN-RADIOLOGY REPORT (09/20/2024 12:00 AM CDT) Anatomical Region Laterality Modality Other us Scanner OTHER Final Result * SCAN-CT INTERPRETATION (09/19/2024 12:00 AM CDT) Anatomical Region Laterality Modality Other us Scanner OTHER Final Result * PATH TISSUE EXAM (09/18/2024 1:26 PM CDT) Only the most recent of2 resultswithin the time period is included. Case Report Pathology Report Case: [id number] Authorizing Provider: Adrian Peterson MD Collected: 09/18/2024 1326 Ordering Location: [facility] Received: 09/18/2024 1344 Pathologist: Bree Sigala MD Specimens: A) - Left Axillary Epworth Lymph Node 1, fresh for routine B) - Left Axillary Epworth Lymph Node 2, fresh for routine C) - Melanoma, left arm melanoma, stitch at 12'clock D) - Melanoma, left posterior shoulder melanoma, stitch at 12 o'clock 09/29/2024 9:16 AM CDT [facility] Final Diagnosis A) SENTINEL LYMPH NODE, LEFT AXILLA 1, BIOPSY: 1. Two lymph nodes, negative for metastatic melanoma 2. 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 One lymph node, negative for metastatic melanoma 2. Colton nevus present C) SKIN, LEFT ARM, WIDE EXCISION: 1. Biopsy site change consistent with prior procedure 2. Separate intradermal nevus, completely excised 3. Separate seborrheic keratosis 3. Negative for residual melanoma D) SKIN, LEFT POSTERIOR SHOULDER, WIDE EXCISION: 1. Focal residual melanoma in situ adjacent to the prior biopsy site, margins negative for involvement 2. Separate lentiginous junctional nevus, completely excised 3. Separate seborrheic keratosis 4. Negative for residual invasive melanoma 09/29/2024 9:16 AM CDT [facility] at 0916 CDT Comment A,B) For staging purposes the lymph nodes would be pN0. 09/29/2024 9:16 AM CDT [facility] Clinical Information 89-year-old male undergoing wide excision and sentinel lymph node biopsy for a 1 mm thick left arm melanoma and a 0.5 mm thick left posterior shoulder melanoma ([id number]). 09/29/2024 9:16 AM CDT [facility] Gross Description A) Received in formalin, labeled with the patient's name and left axilla sentinel lymph node 1, are 2 mata-pink lymph nodes measuring 1.2 x 1.0 x 0.7 cm and 1.4 x 1.5 x 0.6 cm. The lymph nodes are submitted entirely as follows: 1. 2 lymph nodes, bisected (1 inked blue) B) Received in formalin, labeled with the patient's name and left axillary sentinel lymph node 2, is 1 mata-pink lymph node, measuring 3.6 x 2.2 x 1.0 cm. The lymph node is serially sectioned and submitted entirely in 4 cassettes. ADRIAN 09/18/2024 C) Received fresh, labeled with the patient's name and left arm melanoma, stitch at 12'clock, is a 7.5 x 2.3 x 1.8 cm oriented skin ellipse with a suture designating 12:00. The skin surface displays a 0.6 x 0.6 cm ill-defined pale-mata scar, 0.7 cm from the closest peripheral skin margin at 3:00 and 9:00. The specimen is inked as follows: 12-3 o'clock: Blue 3-6 o'clock: Green 6-9 o'clock: Red 9-12 o'clock: Yellow Revenue Cycle Administrator sections are submitted as follows: 1. 12:00 and 6:00 tips 2. 12:00 and 6:00 pseudotips 3-5. Tissue adjacent to lesion 1 cm towards 12:00 6-7. Mid cross-sections of lesion 8-10. Tissue adjacent to lesion 1 cm toward 6:00 D) Received fresh, labeled with the patient's name and left posterior shoulder melanoma stitch at 12 o'clock, is a 7.1 x 2.6 x 1.8 cm oriented skin ellipse with a suture designating 12:00. The skin surface displays a 1.0 x 0.7 cm pale-mata scar, 0.7 cm from the closest peripheral skin margin at 12:00 and 6:00. The specimen is inked as follows: 12-3 o'clock: Blue 3-6 o'clock: Green 6-9 o'clock: Red 9-12 o'clock: Yellow The specimen is submitted entirely as follows: 1. 3:00 and 9:00 tips 2-14. Mid cross-sections from 3:00 to 9:00 [facility]/19[place] 09/29/2024 9:16 AM T [facility] Microscopic Description The final diagnosis is based on microscopic examination of appropriate sections of all specimens. A,B) Per melanoma sentinel lymph node protocol melan-A immunoperoxidase stain was performed on A1, B1, B2, B3, and B4. 09/29/2024 9:16 AM CDT [facility]- ENTRAL LABORATORY Additional Information Interpreted at [facility] - [address] [place] [address] [address] Immunohistochemist ry controls were reviewed and approved as appropriate by the pathologist during this examination. 09/29/2024 9:16 AM CDT [facility]- ENTRAL LAB[facility]AT[facility] Tissue (Left Axillary Epworth Lymph Node 1) 09/18/2024 1:26 PM CDT 09/18/2024 1:44 PM CDT Tissue specimen (specimen) (Left Axillary Epworth Lymph Node 2) 09/18/2024 1:28 PM CDT 09/18/2024 1:44 PM CDT Tissue specimen (specimen) (Melanoma) 09/18/2024 2:03 PM CDT 09/18/2024 3:52 PM CDT Tissue specimen (specimen) (Melanoma) 09/18/2024 2:07 PM CDT 09/18/2024 3:52 PM CDT us Adrian Peterson MD PATHOLOGY/CYTOLOGY Final Re sult [facility] [address] [place] [address], * ETT (09/18/2024 1:12 PM CDT) Narrative [...] inspected prior and post intubation. no changes us Lisa Ann MD ANESTHESIA PX NOTE ORDERA [...] provider. EXAM: NM LYMPHOSCINTIGRAPHY MELANOMA LOCATION: [facility] DATE: 09/18/2024 INDICATION: Epworth lymph node localization. Melanoma. Index lesion left [...] provider. EXAM: NM LYMPHOSCINTIGRAPHY MELANOMA LOCATION: [facility] DATE: 09/18/2024 INDICATION: Epworth lymph node localization. Melanoma. Index lesion leftupper [...] AM CDT Ordered by an unspecified provider. Other Clinical Staff OTHER Final Resul t from Last 3 Months Insurance MEDICARE PART B HB ONLY [place] BLUE MR PB ONLY [place] BLUE HB ONLY MEDICARE PART A HB ONLY Advance Directives Documents on File Type Date Recorded Patient Revenue Cycle Administrator Expl anation Healthcare Directive 12/10/2016 3:53 PM [facility], 10/19/2016 * Full Code (Latest Code Status on File) Date Activated Date Inactivated Comments 09/18/2024 9:34 AM 09/18/2024 7:10 PM Question Answer Comments Code Status Discussion: Discussed * Full Code Date Activated Date Inactivated Comments 03/31/2018 1:30 PM 04/02/2018 1:13 PM Care Teams Green Jobs Trainer Relationship Specialty Start Date End Date Dave Romero MD [address] [place] [address] PCP - General Family Practice 04/07/11 Katherine Smith AuD [address] [place] [address] Audiology 06/04/11 [place] [address] [place] [address] Dermatology 08/01/24 Adrian Peterson MD [address] [place] [address] Surgery - Oncology 08/07/24 Yissel Gibson, KRISTYN [address] [place] [address] Nurse Navigator - Oncology Registered Nurse 08/10/24
[2024-10-11 21:27] VITALS: BP 153/87; PULSE 70; RESP 18; TEMP 36.6; O2SAT 96; BMI 28.7
[2024-10-11 22:09] VITALS: BP 148/64; PULSE 88; RESP 23; TEMP 36.9; O2SAT 98
--- NOTE | 2024-10-11 22:33 | ED.GENADULT ---
HPI - General Adult General Date Seen: 10/11/24 Chief complaint: Skin/Abscess/Foreign Body Stated complaint: infection after surgery Time Seen by Provider: 10/11/24 22:22 History of Present Illness HPI narrative: 89-year-old male referred to the ER today by the urgent care with concern for a skin infection. I actually saw the patient here in the ER about 3 weeks ago with concern for rib pain after he lost his balance and fallen against the toilet. 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 Per urgent care notes he had come in today concerned that he had an infection in his left axilla. They also note that he needed to have sutures removed from his melanoma that was excised 4 weeks ago. Apparently did not have an appointment for suture removal. He also had concerns for a infection on his toe that have been there for about a month or so. History from the patient and his is that after he had fallen a few weeks ago in broken his ribs on left side he decided not to go on his family's cruise through the [facility]. However his did go. He has been taking care of himself for the past couple of weeks. got back about 3 days ago. Yesterday he told his that he was having some redness under his left axilla. Patient is not sure how long it has been red, perhaps a week or so. He says initially thought it was read just because of sweat draining from his armpit. However his saw that it was fairly red and warm to the touch and swollen and to come to the urgent care. He says his armpit is not hurting and he is really not having pain anywhere. He denies any fever or chills. No other red petty. Related Data Home Medications ?Medication ?Instructions ?Recorded ?Confirmed calcium carbonate (Calcium 600) 600 mg PO DAILY 10/27/21 10/11/24 cholecalciferol (vitamin D3) 25 1,000 unit PO DAILY 10/27/21 10/11/24 mcg (1,000 unit) capsule methimazole 5 mg tablet 2.5 mg PO DAILY 10/27/21 10/11/24 tamsulosin 0.4 mg capsule 0.4 mg PO BID 10/27/21 10/11/24 vit C 250 mg-vit E 90 mg-zinc 40 1 tab PO DAILY 12/17/21 10/11/24 mg-copper 1 [id number] capsule (PreserVision AREDS-2) sertraline 25 mg tablet 25 mg PO QAM 05/28/24 10/11/24 acetaminophen 500 mg tablet 1,000 mg PO Q6H PRN 09/21/24 10/11/24 aspirin 325 mg tablet,delayed 325 mg PO DAILY 09/21/24 10/11/24 release Previous Rx's ?Medication ?Instructions ?Recorded simvastatin 20 mg tablet 20 mg PO HS #30 tabs 03/25/23 albuterol sulfate 90 mcg/actuation 1 inh inhalation Q4-6H PRN #1 ea 09/23/24 breath activated powder inhaler celecoxib 50 mg capsule (Celebrex) 50 mg PO DAILY #10 caps 09/23/24 lidocaine 5 % topical patch 1 patch topical Q24H #30 ea 09/23/24 polyethylene glycol 3350 17 17 g PO DAILY #119 grams 09/23/24 gram/dose oral powder (Miralax) doxycycline hyclate 100 mg capsule 100 mg PO BID 10 days #20 caps 10/11/24 metronidazole 500 mg tablet 500 mg PO BID 10 days #20 tabs 10/11/24 Allergies Allergy/AdvReac Type Severity Reaction Status Date / Time Fish Containing Products Allergy Unknown Verified 10/11/24 21:32 lisinopril Allergy Unknown Cough Verified 10/11/24 21:32 Sulfa (Sulfonamide Allergy Unknown Verified 10/11/24 21:32 Antibiotics) [facility] Medical History Accidental fall on or from stairs or steps ?W10.8XXA - Fall (on) (from) other stairs and steps, initial encounter (ICD-10) TIA (transient ischemic attack) (04/01/23) ?G45.9 - Transient cerebral ischemic attack, unspecified (ICD-10) Hyperlipidemia (04/29/06) ?E78.5 - Hyperlipidemia, unspecified (ICD-10) BPH (benign prostatic hyperplasia) (04/29/06) ?N40.0 - Benign prostatic hyperplasia without lower urinary tract symptoms (ICD-10) Bladder stones (03/31/18) ?N21.0 - Calculus in bladder (ICD-10) Vitamin D deficiency (02/12/14) ?E55.9 - Vitamin D deficiency, unspecified (ICD-10) Subclinical hyperthyroidism (03/02/22) ?E05.90 - Thyrotoxicosis, unspecified without thyrotoxic crisis or storm (ICD-10) Sensorineural hearing loss, 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) ?H90.3 - Sensorineural hearing loss, bilateral (ICD-10) TOMAS (obstructive sleep apnea) (06/19/12) ?G47.33 - Obstructive sleep apnea (adult) (pediatric) (ICD-10) Hydrocele, unspecified (02/23/11) ?N43.3 - Hydrocele, unspecified (ICD-10) HTN, goal below 140/90 (04/08/11) ?I10 - Essential (primary) hypertension (ICD-10) Elevated coronary artery calcium score (03/02/22) ?R93.1 - Abnormal findings on diagnostic imaging of heart and coronary circulation (ICD-10) Depression, recurrent (03/12/23) ?F33.9 - Major depressive disorder, recurrent, unspecified (ICD-10) Arterial hypotension (05/25/23) ?I95.9 - Hypotension, unspecified (ICD-10) Mild depression ?F32.A - Depression, unspecified (ICD-10) Hyperthyroidism ?E05.90 - Thyrotoxicosis, unspecified without thyrotoxic crisis or storm (ICD-10) Nephrolithiasis ?N20.0 - Calculus of kidney (ICD-10) History of TIA (transient ischemic attack) ?Z86.73 - Personal history of transient ischemic attack (TIA), and cerebral infarction without residual deficits (ICD-10) BPH (benign prostatic hyperplasia) ?N40.0 - Benign prostatic hyperplasia without lower urinary tract symptoms (ICD-10) Hyperlipidemia ?E78.5 - Hyperlipidemia, unspecified (ICD-10) Rupture of left biceps tendon ?S46.212A - Strain of muscle, fascia and tendon of other parts of biceps, left arm, initial encounter (ICD-10) Osteoarthritis of left shoulder ?M19.012 - Primary osteoarthritis, left shoulder (ICD-10) Rotator cuff tear, left ?M75.102 - Unspecified rotator cuff tear or rupture of left shoulder, not specified as traumatic (ICD-10) Urinary retention due to benign prostatic hyperplasia ?N40.1 - Benign prostatic hyperplasia with lower urinary tract symptoms (ICD-10) ?R33.8 - Other retention of urine (ICD-10) Sepsis ?A41.9 - Sepsis, unspecified organism (ICD-10) Escherichia coli urinary tract infection ?N39.0 - Urinary tract infection, site not specified (ICD-10) ?B96.20 - Unspecified Escherichia coli [E. coli] as the cause of diseases classified elsewhere (ICD-10) Encounter for counseling regarding advance directives (10/19/16) ?Z71.89 - Other specified counseling (ICD-10) Calculus of urinary bladder ?N21.0 - Calculus in bladder (ICD-10) History of bladder stone ?Z87.448 - Personal history of other diseases of urinary system (ICD-10) Surgical History S/P tendon repair (05/28/24) ?Z98.890 - Other specified postprocedural states (ICD-10) History of arthroscopy of right shoulder ?Z98.890 - Other specified postprocedural states (ICD-10) History of hernia repair ?Z98.890 - Other specified postprocedural states (ICD-10) ?Z87.19 - Personal history of other diseases of the digestive system (ICD-10) History of arthroscopy of left shoulder (12/25/08) ?Z98.890 - Other specified postprocedural states (ICD-10) Family History Mother Pancreatic cancer Social History What is your current living situation?: I presently have a place to live Problems where you live: no known problems Problems where you live details: NA In the past 12 months, utilities in danger of being shut off: no In past 12 months, lack of transportation kept you from medical appts, meetings, work, or getting things needed for daily living: no In the past 12 mos, have been you worried that your food would run out before you had money to buy more?: never true In the past 12 mos, the food you bought just didn't last and you didn't have money to buy more?: never true Highest level of school completed/degree received: Master's degree Smoking Status: Never smoker Do you use any of these nicotine containing products: None Second hand tobacco smoke exposure: Yes (In early life) How often do you have a drink containing alcohol: 4 or more times a week Alcohol type: hard liquor How many standard drinks containing alcohol do you have on a typical day: 1 or 2 How often do you have six or more drinks on one occasion: Never AUDIT-C Alcohol total score: 4 Non-prescribed substance use: denies use Caffeine: Yes (One cup of tea a day) Are you now , , , , never or living with a partner: Social isolation score (0-1 are the most socially isolated patients): 1 How often does anyone, including family, friends and others, physically hurt you: never How often does anyone, including family, friends and others, insult or talk down to you: rarely How often does anyone, including family, friends and others, threaten you with harm: never How often does anyone, including family, friends and others, scream or curse at you: never service: No Health Related Social Needs: Other personal risk factors, not elsewhere classified (Z91.89) Exam Narrative: Exam Narrative: Constitutional: Appears well-developed and well-nourished. Alert. Conversant but not very detailed historian and seems a bit unreliable.. Non toxic. HENT: Head: Atraumatic. Nose: Nose normal. Mouth/Throat: Oral mucosa is clear and moist. no trismus. Eyes: Conjunctivae normal. EOM normal. Pupils equal, round, and reactive to light. No scleral icterus. Neck: Normal range of motion. Neck supple. No tracheal deviation present. Cardiovascular: Normal rate, regular rhythm. No gallop. No friction rub. No murmur heard. Symmetric radial artery pulses Pulmonary/Chest: Effort normal. No stridor. No respiratory distress. No wheezes. No rales. No rhonchi . No tenderness. Abdominal: Soft. No distension. No mass. No tenderness. No rebound. No guarding. Musculoskeletal: RUE: Normal range of motion. No tenderness. No deformity LUE: Normal range of motion. No tenderness. No deformity RLE: Normal range of motion. No edema. No tenderness. No deformity LLE: Normal range of motion. No edema. No tenderness. No deformity Lymph: No palpable left axillary adenopathy. Neurological: Alert and oriented to person, place, and time. Normal strength. CN II-VII intact. No sensory deficit. GCS eye subscore is 4. GCS verbal subscore is 5. GCS motor subscore is 6. Normal coordination Skin: He does have a healing left axillary incision and the wound edges are well apposed. There appears to be adherent skin glue. I do not see any purulent drainage. There is a fairly large area of erythema of the skin surrounding that incision which extends about 2 or 3 cm superior from the wound, for 5 cm anterior from the anterior under the wound, fiber 6 cm caudad from the incision, and for 3-5 cm posterior from the posterior and the wound incision. There is some swelling in left axilla but no definite fluctuance. No tenderness. No gas in the soft tissue. Skin is otherwise warm and dry. No rash noted. No pallor. Normal capillary refill. His left humerus incision and left scapula incision are well apposed and do not look red. Psychiatric: Normal mood. Normal affect. Very pleasant. Const: Vital Signs, click to edit/add: Vital Signs - 24 hr 10/11/24 21:27 10/11/24 22:09 10/12/24 00:24 Temperature 97.9 F 98.5 F 98.9 F Pulse Rate [Right Pulse Oximeter] 70 88 71 Respiratory Rate 18 23 18 Blood Pressure [Ri ght Upper Arm] 153/87 H 148/64 H 178/95 H Pulse Oximetry 96 98 96 Oxygen Delivery Me thod Room Air Room Air Room Air Course Course ED Course: Patient seen in ER bed 5. Initial labs and CT ordered I reviewed the CT images myself and the does shoe of a fairly large simple fluid collection in the left axilla. I do not see any rim enhancing or surrounding fat stranding soft tissue edema to suggest this is clearly an abscess. It does not appear to connect any vascular structure. No signs of any active contrast extravasation to suggest that it is hematoma or active bleed. Will need aspiration of fluid to see if it is seroma, abscess, or perhaps a healing hematoma. Verbal consent was obtained from the patient and his . Procedure: Aspiration of left axillary fluid collection Indication: Diagnosis The patient's left arm was abducted and position in a position of comfort. Sterile preparation with Betadine. Using a 27 gauge half-inch needle be infiltrated 2 mL of 0.25% bupivacaine in the skin overlying the fluid collection. Good anesthesia was achieved. Using an 18 gauge needle we were able to enter into the fluid collection. I was able to drain a total of 163 mL of weiss colored, clear fluid with a small tinge of blood. No purulent or cloudy fluid. After this the axillary fluid collection was visibly reduced in size. Patient tolerated without any bleeding or discomfort. Fluid was sent for wound culture, however based on bedside appearance I think this does represent a seroma, not an abscess. Vital Signs Vital signs: Initial Vital Signs Temperature 97.9 F 10/11/24 21:27 Temperature Source Temporal Artery Scan 10/11/24 21:27 Pulse Rate 70 10/11/24 21:27 Respiratory Rate 18 10/11/24 21:27 Blood Pressure 153/87 H 10/11/24 21:27 Blood Pressure Mean 109 H 10/11/24 21:27 Blood Pressure Position Supine 10/11/24 21:27 Pulse Oximetry 96 10/11/24 21:27 Oxygen Delivery Method Room Air 10/11/24 21:27 Vital Signs Temperature 97.9 F 10/11/24 21:27 Pulse Rate 70 10/11/24 21:27 Respiratory Rate 18 10/11/24 21:27 Blood Pressure 153/87 H 10/11/24 21:27 Pulse Oximetry 96 10/11/24 21:27 Oxygen Delivery Method Room Air 10/11/24 21:27 Temperature 98.9 F 10/12/24 00:24 Pulse Rate 71 10/12/24 00:24 Respiratory Rate 18 10/12/24 00:24 Blood Pressure 178/95 H 10/12/24 00:24 Pulse Oximetry 96 10/12/24 00:24 Oxygen Delivery Method Room Air 10/12/24 00:24 Medical Decision Making MDM Narrative Medical decision making narrative: 89-year-old gentleman sent to the ER today by Urgent Care with concern for a left axillary swelling with overlying redness. He was already started on antibiotics by urgent care today but he was sent here to make sure there was no abscess. He is afebrile, hemodynamically stable, well-appearing and not having any pain in that area. Laboratory workup is reassuring with normal white count, stable hemoglobin at 11 for. Metabolic profile is normal. CT scan of his chest confirms a 9 cm fluid collection without any rim enhancing or clear surrounding a inflammation. Radiology suspects this likely represents a seroma. We did do a bedside aspiration and obtained over 160 mL of yellow colored fluid (clear, weiss yellow. not purulent yellow). We will send wound culture from this fluid although suspect this probably is a sterile seroma. At this point I think the patient is safe to discharge for outpatient workup. Would recommend that he continue on antibiotics with the overlying skin redness but at this point this does not represent a drainable abscess in the left axilla. At this point I do not think he needs to be hospitalized for IV antibiotics or transferred to [facility] [place] for I&D. CT scan also read demonstrates his left 9, 10, 11th rib fractures. No new fractures. CT also shows a right-sided thyroid nodule. Recommend outpatient thyroid ultrasound by PCP. 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 also shows a 3 mm right upper lobe pulmonary nodule. Recommended follow-up CT in 12 months. Discussed the incidental findings in detail with the patient and his and they will follow-up with his PCP to arrange appropriate follow-up imaging. Lab Data Labs: Lab Results 10/11/24 10/11/24 Range/Units 23:05 23:09 WBC 6.84 (4.50-11.00) K/uL RBC 3.76 L (4.30-5.90) m/uL Hgb 11.4 L (13.5-17.5) gm/dL Hct 35.1 L (37.0-53.0) % MCV 93 (80-100) fL MCH 30 (26-34) pg MCHC 33 (32-36) gm/dL RDW Coeff of Heather 14.3 (11.5-15.5) % Plt Count 222 (140-440) K/uL Neut % (Auto) 59.9 (42.0-72.0) % Lymph % (Auto) 24.3 (20-44) % [place] % (Auto) 12.9 H (0.0-11.0) % Eos % (Auto) 1.6 (0.0-7.0) % Baso % (Auto) 0.7 (0.0-3.0) % Neut # (Auto) 4.10 (1.7-7.0) K/uL Lymph # (Auto) 1.66 (0.90-2.90) K/uL [place] # (Auto) 0.90 (0.00-0.90) K/UL Eos # (Auto) 0.11 (0.00-0.50) K/uL Baso # (Auto) 0.05 (0.00-0.30) K/uL Abs Immat Gran (auto) 0.04 (0.00-0.30) K/uL Imm/Tot Granulo (auto) 0.6 % Sodium 138 (135-149) mmol/L Potassium 3.9 (3.6-5.1) mmol/L Chloride 106 (96-114) mmol/L Carbon Dioxide 27 (20-32) mmol/L Anion Gap 5 L (7-15) mEq/L BUN 18 (7-30) mg/dL Creatinine 0.9 (0.5-1.5) mg/dL Estimated Creat Clear 52.72 Estimated GFR 82 ml/min Glucose 83 (60-115) mg/dL Calcium 9.4 (8.4-10.6) mg/dL POC Creatinine 1.1 (0.6-1.3) mg/dl Imaging Data CT scan - chest: Attestation: I have reviewed the pertinent imaging results. Radiologist's impression: IMPRESSION: 1. Large left axillary fluid collection measuring up to 9.5 cm, measuring simple fluid in attenuation, likely reflecting seroma although superimposed infection is not excluded in the appropriate clinical context. 2. No acute intrathoracic pathology appreciated. 3. Redemonstrated left posterior 9th through 11th rib fractures. No new fracture appreciated. 4. Large right-sided thyroid nodule. Consider further characterization with thyroid ultrasound if not performed recently. 5. 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 6. Small right upper lobe pulmonary nodule measuring 3 mm. Consider follow-up CT chest in 12 months to assess for interval change. Discharge Plan Discharge Clinical Impression: Seroma after procedure, Incidental pulmonary nodule, Thyroid nodule Patient Disposition: Home, Self-Care Instructions: Thyroid Nodules (ED), Pulmonary Nodules (ED), Seroma (DC) Additional Instructions: 1. Left armpit: At this point your workup indicates that the swollen lump in your left armpit is a collection of fluid called a ?seroma. ? For now we do not see any pus or abscess. However I want you to continue on the antibiotics that were prescribed to you by the urgent care. Please call your surgeon from [facility] [place] tomorrow morning to arrange an ER follow-up visit. I suspect that this seroma is likely because of the lymph nodes that they took out of your axilla during her surgery. I am concerned that this seroma may reaccumulate and may need to be drained again. Your surgeon can help manage this. If you have worsening swelling or pain or redness, or fever, or any concerns, come back to the ER right away. 2. The CT scan of your lungs does show a small nodule in your right upper lung. Please follow-up with your regular doctor (primary care provider) to arrange a repeat CT scan of your chest in [address] scan of your chest also shows a small nodule in your thyroid. Please talk to your regular primary care provider. They can arrange a thyroid ultrasound for further evaluation. Prescriptions: No Action cholecalciferol (vitamin D3) 25 mcg (1,000 unit) capsule 1,000 unit PO DAILY calcium carbonate [Calcium 600] 600 mg calcium (1,500 mg) tablet 600 mg PO DAILY methimazole 5 mg tablet 2.5 mg PO DAILY tamsulosin 0.4 mg capsule 0.4 mg PO BID PreserVision AREDS-2 250-90-40-1 mg capsule 1 tab PO DAILY metronidazole 500 mg tablet 500 mg PO BID 10 Days Qty: 20 0RF doxycycline hyclate 100 mg capsule 100 mg PO BID 10 Days Qty: 20 0RF simvastatin 20 mg Tablet 20 mg PO HS Qty: 30 0RF sertraline 25 mg tablet 25 mg PO QAM acetaminophen 500 mg tablet 1,000 mg PO Q6H PRN aspirin 325 mg tablet,delayed release (DR/EC) 325 mg PO DAILY polyethylene glycol 3350 [Miralax] 17 gram/dose powder 17 g PO DAILY Qty: 119 0RF lidocaine 5 % adhesive patch,medicated 1 patch topical Q24H Qty: 30 0RF Rx Instructions: leave on most painful area for up to 12 hrs celecoxib [Celebrex] 50 mg capsule 50 mg PO DAILY Qty: 10 0RF albuterol sulfate 90 mcg/actuation aerosol powdr breath activated 1 inh inhalation Q4-6H PRNQty: 1 0RF Follow Up/Referrals: Dave Romero MD [Primary Care Provider, Family Practice] Stand Alone Forms: [id number] Info Instructions
--- NOTE | 2024-10-11 22:50 | CRLHL7_ITS ---
For Patients: As a result of the Century Cures Act, medical imaging exams and procedure reports are released immediately into your electronic medical record. You may view this report before your referring provider. If you have questions, please contact your health care provider. INDICATION: Left axillary redness and swelling. Recent axillary lymph node dissection. TECHNIQUE: CT chest with 75 cc Isovue 370 IV contrast. COMPARISON: CT chest abdomen pelvis 09/19/2024. FINDINGS: Lungs and pleura: Bibasilar atelectasis/scarring. No focal consolidation. No pleural effusion or pneumothorax. Right upper lobe nodule measuring 3 mm (series 3, image 73), unchanged. Patent central airways. Heart and vasculature: No cardiomegaly or pericardial effusion. There are coronary artery calcifications and atherosclerotic calcifications of the aorta. Main pulmonary artery is normal in caliber. 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 Tortuous thoracoabdominal aorta. Lymph nodes/mediastinum: Large right thyroid nodule grossly unchanged. No mediastinal or hilar lymphadenopathy. Chest wall: Multilobulated left axillary fluid collection measuring up to 9.5 x 6.3 x 6.1 cm (coronal series 4, image 57). Collection measures simple fluid in attenuation and is new compared to prior. Upper abdomen: Bilateral renal cysts. Bones: Displaced fractures of the left posterior 10th and 11th ribs are grossly unchanged. Subacute appearing nondisplaced fracture of the left posterior 9th rib also unchanged in alignment. No new fracture appreciated. IMPRESSION: 1. Large left axillary fluid collection measuring up to 9.5 cm, measuring simple fluid in attenuation, likely reflecting seroma although superimposed infection is not excluded in the appropriate clinical context. 2. No acute intrathoracic pathology appreciated. 3. Redemonstrated left posterior 9th through 11th rib fractures. No new fracture appreciated. 4. Large right-sided thyroid nodule. Consider further characterization with thyroid ultrasound if not performed recently. 5. 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 6. Small right upper lobe pulmonary nodule measuring 3 mm. Consider follow-up CT chest in 12 months to assess for interval change. Please note that all CT scans at this facility use dose modulation, iterative reconstruction, and/or weight-based dosing when appropriate to reduce radiation dose to as low as reasonably achievable. Dictated by Chan Bob MD @ 10/12/2024 12:26:42 AM (Electronically Signed)
[2024-10-11 23:13] LABS: Creatinine, Point-of-Care* 1.1 mg/dl (0.6-1.3)
[2024-10-11 23:23] LABS: Hematocrit 35.1 % (37.0-53.0); Hemoglobin* 11.4 gm/dL (13.5-17.5); Immature Granulocytes Abs Auto 0.04 K/uL (0.00-0.30); Immature Granulocytes Pct Auto 0.6 %; Lymphocytes Absolute Auto 1.66 K/uL (0.90-2.90); Mean Corpuscular HGB Conc 33 gm/dL (32-36); Mean Corpuscular Hemoglobin 30 pg (26-34); Mean Corpuscular Volume 93 fL (80-100); RDW Coefficient of Variation % 14.3 % (11.5-15.5); Red Blood Count 3.76 m/uL (4.30-5.90); White Blood Count* 6.84 K/uL (4.50-11.00)
[2024-10-11 23:25] LABS: Slide Review Reflex No
[2024-10-11 23:39] LABS: Chloride* 106 mmol/L (96-114); Sodium* 138 mmol/L (135-149)
[2024-10-11 23:40] LABS: Potassium* 3.9 mmol/L (3.6-5.1)
[2024-10-11 23:42] LABS: Blood Urea Nitrogen* 18 mg/dL (7-30); Creatinine* 0.9 mg/dL (0.5-1.5); Est. Creatinine Clearance* 52.72; Estimated Glomerular Filt Rate 82 ml/min
[2024-10-11 23:43] LABS: Anion Gap 5 mEq/L (7-15); Calcium* 9.4 mg/dL (8.4-10.6); Carbon Dioxide* 27 mmol/L (20-32); Glucose* 83 mg/dL (60-115)
[2024-10-12 00:24] VITALS: BP 178/95; PULSE 71; RESP 18; TEMP 37.2; O2SAT 96
== END 2024-10-12 00:52 | disposition home or self-care (01) ==
PROVIDERS: Emergency Provider Emergency Medicine; PCP Family Medicine
DX: L76.34 Postprocedural seroma of skin and subcutaneous tissue following other procedure (principal); E04.1 Nontoxic single thyroid nodule
CPT/HCPCS: 10160; 36415; 71260; 80048; 82565; 85025; 87040; 87070; 99283; Q9967

== ENCOUNTER 2025-02-20 10:30 | Outpatient (RCR) | payer MEDICARE, BC, SELFPAY | END 2025-02-20 12:58 | disposition home or self-care (01) | PROVIDERS: PCP Family Medicine; Visit Provider Family Medicine | DX: M17.0 Bilateral primary osteoarthritis of knee (principal); R26.81 Unsteadiness on feet; Z51.89 Encounter for other specified aftercare | CPT/HCPCS: 97110; 97112; 97140; 97161 ==